=== PATIENT | female | born 1980 | race Caucasian/White ===

== ENCOUNTER 2019-12-25 10:38 | Outpatient (REF) | payer OTHER, SELFPAY ==
[2019-12-26 11:42] LABS: DHEA Sulfate 166 mcg/dL (23-266)
[2019-12-27 01:32] LABS: Prolactin 7.3 ng/mL
[2019-12-31 12:47] LABS: Testosterone, Total 33 ng/dL (2-45)
== END 2019-12-25 10:39 | disposition home or self-care (01) ==
LOC: HO.LAB 10:38
PROVIDERS: PCP Internal Medicine; Visit Provider Advanced Practice Midwife
DX: L68.0 Hirsutism (principal)
CPT/HCPCS: 82627; 83498; 84146; 84402; 84403

== ENCOUNTER → 2020-01-04 11:33 | Outpatient (BNVA) | payer OTHER, SELFPAY | PROVIDERS: Visit Provider Advanced Practice Midwife | DX: L68.0 Hirsutism (principal) | CPT/HCPCS: 99212 ==

== ENCOUNTER 2020-01-19 10:24 | Outpatient (REF) | payer OTHER, SELFPAY ==
[2020-01-19 11:49] LABS: MANUAL DIFF FLAG NO
[2020-01-19 11:58] LABS: Basophils Percent Auto 0.3 % (0-2); Eosinophils Percent Auto 0.4 % (0-4); Hematocrit 38.9 % (37-47); Hemoglobin 12.5 g/dl (12.0-16.0); Imm Gran Abs Auto 0.03 X10*3/uL (0.00-0.03); Imm Gran Pct Auto 0.4 % (0.0-0.4); Lymphocytes Absolute Auto 2.5 X10*3/uL (1.2-4.9); Mean Corpuscular HGB Conc 32.1 g/dl (31.0-35.0); Mean Corpuscular Hemoglobin 28.2 pg (27.0-33.0); Mean Corpuscular Volume 87.8 fL (80-98); Mean Platelet Volume 10.8 fL (9.4-12.3); Monocytes Absolute Auto 0.5 X10*3/uL (0.1-1.2); Monocytes Percent Auto 6.4 % (2-11); Neutrophils Absolute Auto 4.1 X10*3/uL (2.0-8.3); Neutrophils Percent Auto 57.5 % (45-73); Platelet Count 305 X10*3/uL (160-400); Red Blood Count 4.43 X10*6/uL (4.20-5.50); Red Cell Distribution Width 14.6 % (11.0-16.0); White Blood Count 7.1 X10*3/uL (4.8-10.8)
[2020-01-19 12:29] LABS: Anion Gap 13 (12-20); Blood Urea Nitrogen 10 mg/dL (9-16); Calcium 9.1 mg/dL (8.4-10.2); Carbon Dioxide 27 mmol/L (22-29); Chloride 104 mmol/L (96-108); Cholesterol 142 mg/dL; Estimated Glomerular Filt Rate > 60; Glucose Fasting 98 mg/dL (60-99); HDL Cholesterol 37 mg/dL; LDL Cholesterol Calculated 84 mg/dl; Potassium 4.5 mmol/l (3.3-5.1); Sodium 139 mmol/L (135-145); Triglycerides 106 mg/dL
== END 2020-01-19 10:25 | disposition home or self-care (01) ==
LOC: HO.HMGCLDS 10:24
PROVIDERS: PCP Internal Medicine; Visit Provider Internal Medicine
DX: Z00.01 Encounter for general adult medical examination with abnormal findings (principal); E66.9 Obesity, unspecified; E03.9 Hypothyroidism, unspecified; K21.9 Gastro-esophageal reflux disease without esophagitis; K76.0 Fatty (change of) liver, not elsewhere classified; R07.89 Other chest pain
CPT/HCPCS: 36415; 80048; 80061; 84443; 85025

== ENCOUNTER 2020-02-01 11:47 | Outpatient (REF) | payer OTHER, SELFPAY ==
[2020-02-01 16:54] LABS: Glucose Urine UA NEG (NEG); Leukocyte Esterase Urine NEG (NEG); Nitrite Urine POS (NEG); PH 6.5 (5.0-8.0); Urine Blood 1+ (NEG); Urine Ketones NEG (NEG); Urine Protein NEG (NEG-TRACE)
[2020-02-01 16:55] LABS: Appearance Urine HAZY; Color Urine YELLOW
[2020-02-01 17:15] LABS: Bacteria Urine 4+ /LPF; RBC Urine 0-2 /HPF (0); Squamous Epithelial Cell Urine TRACE /LPF
[2020-02-02 09:43] LABS: BV Int Neg Control Negative (Negative); BV Int Pos Control Positive (Positive)
== END 2020-02-01 11:48 | disposition home or self-care (01) ==
LOC: HO.LAB 11:47
PROVIDERS: Visit Provider Hospitalist
DX: N89.8 Other specified noninflammatory disorders of vagina (principal)
CPT/HCPCS: 81001; 87086; 87088; 87186; 87480; 87510; 87660

== ENCOUNTER 2020-02-02 14:19 | Outpatient (REF) | payer OTHER, SELFPAY ==
--- NOTE | 2020-02-02 14:21 | XR_ITS ---
EXAMINATION: XR SHOULDER, LEFT CLINICAL INFORMATION: Pain. COMPARISON: None TECHNIQUE: Three views of the left shoulder. FINDINGS: No fracture or dislocation. Mild AC joint arthritis. No abnormal soft tissue calcification. XR/XR shoulder LT min 2V IMPRESSION: No acute osseous abnormality. Mild AC joint arthritis.
== END 2020-02-02 14:20 | disposition home or self-care (01) ==
LOC: HO.HOSX 14:19
PROVIDERS: PCP Internal Medicine; Visit Provider Orthopaedic Surgery
DX: M25.512 Pain in left shoulder (principal); M75.42 Impingement syndrome of left shoulder
CPT/HCPCS: 20610; 73030; 99212; J1040

== ENCOUNTER 2020-04-05 10:18 | Outpatient (REF) | payer OTHER, SELFPAY ==
[2020-04-06 08:50] LABS: HIV AB/AG Nonreactive (Nonreactive); HIV Num 1 0.07 S/CO (0.00-0.99); ~HepC Num1 0.09 S/CO (0.00-0.79); ~Hepatitis C Antibody Nonreactive (Nonreactive)
[2020-04-06 08:53] LABS: Syphilis Screen Nonreactive (Nonreactive)
[2020-04-06 09:50] LABS: HBsAGNum1 0.22 S/CO (0.00-0.99); Hepatitis B Surface Antigen Negative (Negative)
[2020-04-06 17:36] LABS: C. trachomatis RNA TMA NOT DETECTED (NOT DETECTED); N. gonorrhoeae RNA TMA NOT DETECTED (NOT DETECTED)
== END 2020-04-05 10:19 | disposition home or self-care (01) ==
LOC: HO.LAB 10:18
PROVIDERS: PCP Internal Medicine; Visit Provider Advanced Practice Midwife
DX: Z01.419 Encounter for gynecological examination (general) (routine) without abnormal findings (principal); Z20.2 Contact with and (suspected) exposure to infections with a predominantly sexual mode of transmission
CPT/HCPCS: 36415; 86780; 86803; 87340; 87389; 87491; 87591

== ENCOUNTER → 2020-04-12 08:28 | Outpatient (BNVA) | payer OTHER, SELFPAY | PROVIDERS: PCP Internal Medicine; Visit Provider Orthopaedic Surgery | DX: M22.2X2 Patellofemoral disorders, left knee (principal); M25.561 Pain in right knee | CPT/HCPCS: 99212 ==

== ENCOUNTER 2020-05-17 09:44 | Outpatient (REF) | payer OTHER, SELFPAY ==
[2020-05-17 12:30] LABS: Alanine Aminotransferase 35 U/L (0-31); Albumin Level 4.1 g/dL (3.5-5.0); Alkaline Phosphatase 105 U/L (39-117); Anion Gap 14 (12-20); Aspartate Amino Transferase 26 U/L (5-31); Bilirubin Total 0.3 mg/dL (0.0-1.0); Blood Urea Nitrogen 12 mg/dL (9-16); Calcium 8.8 mg/dL (8.4-10.2); Carbon Dioxide 26 mmol/L (22-29); Chloride 105 mmol/L (96-108); Cholesterol 178 mg/dL; Estimated Glomerular Filt Rate > 60; Glucose Fasting 100 mg/dL (60-99); HDL Cholesterol 41 mg/dL; LDL Cholesterol Calculated 109 mg/dl; Potassium 4.2 mmol/L (3.3-5.1); Sodium 141 mmol/L (135-145); Total Protein 7.1 g/dL (6.5-8.0); Triglycerides 144 mg/dL
[2020-05-17 16:27] LABS: Glucose Urine UA NEG (NEG); Leukocyte Esterase Urine NEG (NEG); Nitrite Urine POS (NEG); Specific Gravity - Urine 1.015 (1.005-1.025); Urine Blood TRACE (NEG); Urine Ketones NEG (NEG); Urine Protein NEG (NEG-TRACE)
[2020-05-17 16:31] LABS: Appearance Urine CLEAR; Color Urine YELLOW
[2020-05-17 16:32] LABS: Bacteria Urine 3+ /LPF; RBC Urine 0-2 /HPF (0); Squamous Epithelial Cell Urine 1+ /LPF; WBC Urine 0 /HPF (0-4)
[2020-05-18 08:44] LABS: CT PCR NOT DETECTED (Not Detect.); NG PCR NOT DETECTED (Not Detect.)
== END 2020-05-17 09:45 | disposition home or self-care (01) ==
LOC: HO.HMGCLDS 09:44
PROVIDERS: Advanced Practice Midwife; Hospitalist; PCP Internal Medicine; Visit Provider Internal Medicine
DX: Z00.01 Encounter for general adult medical examination with abnormal findings (principal); E03.9 Hypothyroidism, unspecified; E66.9 Obesity, unspecified; Z20.2 Contact with and (suspected) exposure to infections with a predominantly sexual mode of transmission
CPT/HCPCS: 36415; 80053; 80061; 81001; 84443; 87491; 87591

== ENCOUNTER 2020-06-21 08:56 | Outpatient (REF) | payer OTHER, SELFPAY ==
--- NOTE | ~2020-06-21 | MM_ITS ---
EXAMINATION: MM SCREENING DIGITAL BREAST TOMOSYNTHESIS, BILATERAL CLINICAL INFORMATION: Screening. Asymptomatic. No prior breast imaging. Age 40. No known family history breast cancer. The lifetime risk of breast cancer based on the Tyrer-Cuzick Model is 7%. COMPARISON: None (current study represents initial baseline exam). TECHNIQUE: Digital breast tomosynthesis is performed in both the craniocaudal and mediolateral oblique views along with computer-aided detection (CAD). Synthesized 2D images are generated from the tomosynthesis. Additional right MLO view is provided. FINDINGS: There are scattered areas of fibroglandular density (ACR BI-RADS breast composition Category b). There are no significant masses, abnormal calcifications, or other abnormalities. The axilla and skin contours are unremarkable. MM/MM tomosynthesis screening BI IMPRESSION: No mammographic evidence of malignancy. ASSESSMENT: BI-RADS 1: Negative RECOMMENDATION: Routine annual mammography screening. This patient's information was entered into a reminder system with a target due date for their next mammogram.
== END 2020-06-21 08:57 | disposition home or self-care (01) ==
LOC: HO.MAMMO 08:56
PROVIDERS: PCP Internal Medicine; Visit Provider Internal Medicine
DX: Z12.31 Encounter for screening mammogram for malignant neoplasm of breast (principal)
CPT/HCPCS: 77063; 77067

== ENCOUNTER 2020-08-03 09:24 | Outpatient (REF) | payer OTHER, SELFPAY | END 2020-08-03 09:25 | disposition home or self-care (01) | LOC: HO.HMGCLDS 09:24 | PROVIDERS: PCP Internal Medicine; Visit Provider Internal Medicine | DX: Z20.822 Contact with and (suspected) exposure to COVID-19 (principal) | CPT/HCPCS: C9803; U0003; U0005 ==

== ENCOUNTER 2021-01-18 11:06 | Outpatient (REF) | payer MEDICAID, OTHER, SELFPAY ==
--- NOTE | ~2021-01-18 | XR_ITS ---
EXAMINATION: XR HAND, RIGHT CLINICAL INFORMATION: Trauma, pain COMPARISON: None TECHNIQUE: PA, lateral, and oblique views of the right hand. FINDINGS: There is an oblique intra-articular fracture involving the fifth finger middle phalanx extending to the DIP joint. There is mild impaction of the fracture fragment, articular cortical step off by under 2 mm. There is no dislocation or destructive process. The remainder of the bony structures appear intact. XR/XR hand RT min 3V IMPRESSION: Oblique intra-articular fracture fifth finger middle phalanx extending to the DIP joint. No dislocation.
== END 2021-01-18 11:07 | disposition home or self-care (01) ==
LOC: HO.XRAY 11:06
PROVIDERS: Visit Provider Emergency Medicine
DX: M79.644 Pain in right finger(s) (principal)
CPT/HCPCS: 29130; 73130; 99283

== ENCOUNTER 2021-01-18 16:17 | Emergency (ER) | payer MEDICAID, OTHER, SELFPAY ==
[2021-01-18 17:07] VITALS: BP 119/79; PULSE 83; RESP 16; TEMP 36.8; O2SAT 99; BMI 34.6
--- NOTE | 2021-01-18 17:50 | ED_ITS ---
HPI - Extremity Injury (Upper) General Chief Complaint: Extremity Injury, Upper Stated Complaint: finger fracture Time Seen by Provider: 01/18/21 17:30 Source: patient and family Mode of arrival: ambulatory Limitations: no limitations History of Present Illness HPI narrative: 40-year-old female presenting to the ED after she had an outpatient x-ray which revealed an oblique intra-articular fracture 5th finger middle phalanx extending into the DIP joint no dislocation after her doctor ordered an outpatient x-ray today. She reports that she had seen her doctor twice on 2 separate occasions after she had this injury and she begged him on the 2 separate occasions for an x-ray and he did not order the x-ray until today and then they called her and told her that she had a fracture and had to come to the ER for an ortho consult. She reports that this happened after she pinched her finger in a door. She denies any fevers, chills, paresthesias, numbness or tingling or any other symptoms complaints or concerns at this time MD complaint: injury to: right and finger (little finger) Onset (ago): day(s) (15 days ) Other Extremity Injury: left: fingers (little finger) Other injuries: none Handedness: right Place: home Severity: moderate Severity scale (1-10): >10 Relieving factors: none Exacerbating factors: movement of extremity and other (Palpation) Context: direct blow (pinched with door ) Associated symptoms: denies other symptoms Related Data Home Medications Medication Instructions Recorded Confirmed cholecalciferol (vitamin D3) 50 50 mcg PO BEDTIME 05/13/20 05/13/20 mcg (2,000 unit) tablet Previous Rx's Medication Instructions Recorded nitrofurantoin 100 mg PO Q12H 3 Days #6 cap 03/01/20 monohydrate/macrocrystals 100 mg capsule (Macrobid) diclofenac sodium 75 mg 75 mg PO BID #60 tab 04/12/20 tablet,delayed release fluconazole 150 mg tablet 150 mg PO Q3D #2 tab 06/18/20 (Diflucan) atorvastatin 10 mg tablet 10 mg PO BEDTIME 90 Days #90 tab 12/09/20 levothyroxine 75 mcg tablet 75 mcg PO DAILY #90 tab 12/09/20 ibuprofen 800 mg tablet 800 mg PO Q8H PRN #14 tab 01/18/21 oxycodone 5 mg tablet 5 mg PO Q6H PRN #14 tab 01/18/21 Allergies Allergy/AdvReac Type Severity Reaction Status Date / Time No Known Allergies Allergy Verified 06/18/20 09:19 [No Known Allergies*] Review of Systems Review of Systems: Constitutional : No Weight loss, No Fever, No Chills, No Night Sweats, No Fatigue, No Malaise ENT/Mouth : No Hearing loss, No Ear Pain, No Nasal Congestion, No Sinus Pain, No Hoarseness, No sore throat, No Rhinorrhea, No Swallowing Difficulty Eyes: No Eye Pain, No Swelling, No Redness, No Foreign Body, No Discharge, No Vision Changes Cardiovascular : No Chest Pain, No SOB, No Dyspnea on Exertion, No Orthopnea, No Edema, No Palpitations Respiratory : No Cough, No Sputum, No Wheezing, No Smoke Exposure, No Dyspnea Gastrointestinal : No Nausea, No Vomiting, No Diarrhea, No Constipation, No abdominal Pain, No Hematochezia, No Melena Genitourinary : no irregular bleeding, No Dysuria, No Urinary Frequency, No Hematuria, No Urinary Incontinence, No Urgency, No Flank Pain, No Urinary Flow Changes, No Hesitancy Musculoskeletal : + joint pain, No Myalgias, No Joint Swelling Skin : No Skin Lesions, No rash Neuro : No Weakness, No Numbness, No Paresthesias, No Loss of Consciousness, No Dizziness, No Headache Psych : No Anxiety/Panic, No Depression, No SI/HI/AH/VH, No Social Issues, Heme/Lymph: No Bruising, No Bleeding,No Lymphadenopathy Endocrine : No Polyuria, No Polydipsia, No Temperature Intolerance Yes all other systems are reviewed and are negative [facility] Past Medical History Attestation statement: The following information was validated with the patient. Medical History Acquired hypothyroidism GERD (gastroesophageal reflux disease) Herpes labialis Hirsutism Lumbar radicular pain NAFLD (nonalcoholic fatty liver disease) Obesity Rotator cuff impingement syndrome of left shoulder Sebaceous cyst Vaginitis Surgical History Hx of section Hx of rhinoplasty Family History Family History Father Diabetes mellitus Mother HTN (hypertension) Active Meniere's disease Paternal Aunt Ovarian cancer Social History Social History Alcohol intake: never Advance Directives: No Advance Directives Information Provided: Yes Patient : No Current occupational status: employed 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 Blood pressure normal Heart rate normal. Respiration rate normal. Temperature normal. Oxygen saturation normal. Appearance: Alert. Oriented X3. No acute distress. Head: Normal external exam. Normocephalic. Atraumatic. Eyes: PERRLA. EOMI. Conjunctiva and sclera normal. Eyelids normal. ENT: Pharynx normal. Uvula midline. Moist mucous membranes. Neck: Normal inspection. Neck supple. FROM. CVS: Normal heart rate and rhythm. Respiratory: No respiratory distress. Painless inspiration. Skin: Skin warm and dry. Normal skin color. Normal skin turgor. No rashes/lesions/lacerations noted. Extremities: To the right hand 5th digit/little finger at the at the middle phalanx/DI P patient has tenderness to palpation and obvious mild deformity. No obvious ligamentous or tendon injury and she does have good range of motion. Otherwise all of Extremities exhibit normal range of motion and nontender. Neuro: Oriented X 3. No motor deficit. No sensory deficit. Reflexes normal. Normal steady gait. No focal neuro deficits noted. Vascular: + radial pulses/+ 2 distal pedal pulses/+2 dorsalis pedis b/l. Normal cap refill. No cyanosis noted to upper extremity nails and lower extremity toes nails. Course Course Course Narrative: 40-year-old female presenting to the ED after she had an outpatient x-ray which revealed an oblique intra-articular fracture 5th finger middle phalanx extending into the D IP joint no dislocation after her doctor ordered an outpatient x-ray today. She reports that she had seen her doctor twice on 2 separate occasions after she had this injury and she begged him on the 2 separate occasions for an x-ray and he did not order the x-ray until today and then they called her and told her that she had a fracture and had to come to the ER for an ortho consult. She reports that this happened after she pinched her finger in a door. I consulted Orthopedic and they recommended a finger splint verses a ulnar gutter splint therefore will placed in an ulnar gutter splint and they will call her tomorrow with a follow-up appointment this week for possible outpatient surgery although they are not positive due to patient had this injury 15 days ago. Patient understands this I had a long conversation with her that they may or may not do surgery due to the timeframe of the injury. She understands this. Will DC home with symptomatic treatment fractions return if any new or worsening symptoms and to follow-up with hand surgeon and they will call her tomorrow. She understands agrees with this plan MDM - Extremity Injury (Upper) Medical Records Attestation: I reviewed the patient's medical records. Imaging Data left hand xrays: Attestation: I personally reviewed and interpreted this imaging study as follows: Radiologist's impression: FINDINGS: There is an oblique intra-articular fracture involving the fifth finger middle phalanx extending to the DIP joint. There is mild impaction of the fracture fragment, articular cortical step off by under 2 mm. There is no dislocation or destructive process. The remainder of the bony structures appear intact.? XR/XR hand RT min 3V IMPRESSION: Oblique intra-articular fracture fifth finger middle phalanx extending to the DIP joint. No dislocation. Procedures Orthopedic Splinting/Casting Injury #1: Side: right Upper Extremity Injury Location: finger (little finger) Upper Extremity Immobilizer: ulnar gutter Discharge Plan Discharge Clinical Impression: Closed fracture of phalanx of little finger, Closed fracture of phalanx of little finger with delayed healing Patient Disposition: Home, Self-Care Instructions: Finger Fracture (ED) Prescriptions: New ibuprofen 800 mg tablet 800 mg PO Q8H PRN (Reason: pain) Qty: 14 RF: 0 oxycodone 5 mg tablet 5 mg PO Q6H PRN (Reason: pain) Qty: 14 RF: 0 No Action levothyroxine 75 mcg tablet 75 mcg PO DAILY Qty: 90 RF: 1 atorvastatin 10 mg tablet 10 mg PO BEDTIME 90 Days Qty: 90 RF: 0 cholecalciferol (vitamin D3) 50 mcg (2,000 unit) tablet 50 mcg PO BEDTIME RF: 0 nitrofurantoin monohyd/m-cryst [Macrobid] 100 mg capsule 100 mg PO Q12H 3 Days Qty: 6 RF: 0 fluconazole [Diflucan] 150 mg tablet 150 mg PO Q3D Qty: 2 RF: 0 diclofenac sodium 75 mg tablet,delayed release (DR/EC) 75 mg PO BID Qty: 60 RF: 2 Referrals: [facility] [Primary Care Provider] - 2 days Ree Gresham MD [Physician] - 2 days Print Language: Afghan
[2021-01-18 18:22] VITALS: BP 130/78; PULSE 89; RESP 16; TEMP 36.6; O2SAT 97
--- NOTE | 2021-01-18 18:28 | PC.NURSE ---
PT ULNER GUTTER IN PLACE TO LEFT HAND
== END 2021-01-18 18:56 | disposition home or self-care (01) ==
PROVIDERS: Emergency Provider Emergency Medicine
DX: S62.606A Fracture of unspecified phalanx of right little finger, initial encounter for closed fracture (principal); M79.641 Pain in right hand; Y29.XXXA Contact with blunt object, undetermined intent, initial encounter; Y93.9 Activity, unspecified; Y92.009 Unspecified place in unspecified non-institutional (private) residence as the place of occurrence of the external cause; Y99.9 Unspecified external cause status; Z79.899 Other long term (current) drug therapy
CPT/HCPCS: 29130; 99283

== ENCOUNTER 2021-01-20 07:11 | Outpatient (REF) | payer MEDICAID, OTHER, SELFPAY | END 2021-01-20 07:12 | disposition home or self-care (01) | LOC: HO.HOSX 07:11 | PROVIDERS: Visit Provider Physician Assistant | DX: S62.606G Fracture of unspecified phalanx of right little finger, subsequent encounter for fracture with delayed healing (principal); X58.XXXD Exposure to other specified factors, subsequent encounter; Z79.891 Long term (current) use of opiate analgesic; Z79.899 Other long term (current) drug therapy | CPT/HCPCS: 99202 ==

== ENCOUNTER 2021-01-23 08:18 | Day surgery (SDC) | payer MEDICAID, OTHER, SELFPAY ==
--- NOTE | 2021-01-20 14:55 | HO.ANESPROP2 ---
Documented by User: Magdalena Meza NP 01/20/21 14:56 HPI - Anesthesia Eval Consult details Narrative: 41yo F for Right Finger Fx ORIF fifth digit PMFSH Active Problems Active Problems: All Active Problems (Updated 01/20/21 @ 13:15 by Robyn Maurice PA-C) Fracture of phalanx of middle finger with delayed healing (Acute) Lipid disorder (Acute) Other specified hypothyroidism (Acute) Vaginitis (Acute) Encounter for general adult medical examination with abnormal findings (Acute) Patellofemoral pain syndrome of left knee (Acute) NAFLD (nonalcoholic fatty liver disease) (Acute) GERD (gastroesophageal reflux disease) (Acute) Acquired hypothyroidism (Acute) Obesity (Acute) Past Medical History Medical History Acquired hypothyroidism GERD (gastroesophageal reflux disease) Herpes labialis Hirsutism Lumbar radicular pain NAFLD (nonalcoholic fatty liver disease) Obesity Rotator cuff impingement syndrome of left shoulder Sebaceous cyst Vaginitis Family History Family History Father Diabetes mellitus Mother HTN (hypertension) Active Meniere's disease Paternal Aunt Ovarian cancer Surgical History Surgical History Hx of section Hx of rhinoplasty Social History Social History Alcohol intake: never Patient Tobacco Use Status: Never used Tobacco Use of substances other than those prescribed or required for medical reasons: No Are you DNR?: No Advance Directives: No Advance Directives Information Provided: Yes Current occupational status: employed 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 Gender identity: Female Meds Allergies Allergy/AdvReac Type Severity Reaction Status Date / Time No Known Allergies Allergy Verified 01/20/21 10:12 [No Known Allergies*] Home Medications Medication Instructions Recorded Confirmed Last Taken Type cholecalciferol (vitamin D3) 50 50 mcg PO BEDTIME 05/13/20 05/13/20 Unknown History mcg (2,000 unit) tablet Exam Exam Date and Time: January 20, [id number] Assessment and Plan Assessment Anesthesia Assessment: Chart Reviewed Documented by User: Daylin Rollins MD 01/23/21 09:09 PMFSH Past Medical History Medical History Acquired hypothyroidism GERD (gastroesophageal reflux disease) Herpes labialis Hirsutism Lumbar radicular pain NAFLD (nonalcoholic fatty liver disease) Obesity Rotator cuff impingement syndrome of left shoulder Sebaceous cyst Vaginitis Functional capacity: independent ambulation Patient : No Family History Family History Father Diabetes mellitus Mother HTN (hypertension) Active Meniere's disease Paternal Aunt Ovarian cancer Family history of problems with anesthesia: No Surgical History Surgical History Hx of section Hx of rhinoplasty History of Problems with Anesthesia: No Social History Social History Alcohol intake: never Patient Tobacco Use Status: Never used Tobacco Use of substances other than those prescribed or required for medical reasons: No Are you DNR?: No Advance Directives: No Advance Directives Information Provided: Yes Current occupational status: employed 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 Gender identity: Female Meds Allergies Allergy/AdvReac Type Severity Reaction Status Date / Time No Known Allergies Allergy Verified 01/20/21 10:12 [No Known Allergies*] Home Medications Medication Instructions Recorded Confirmed Last Taken Type cholecalciferol (vitamin D3) 50 50 mcg PO BEDTIME 05/13/20 05/13/20 Unknown History mcg (2,000 unit) tablet Exam Airway Mallampati Class: II TM Dist: >3cm Heart: RRR Lungs: CTA Assessment and Plan Final Anesthetic Review Family History of Problems with Anesthesia: No History of Problems with Anesthesia: No ASA Class: II Final Preanesthetic Review: No Changes in Pt Med Stat, Meds/Allgs Chart Reviewed, Consent Obtained/Reviewed and Anes Risks/Benef Reviewed Patient Risk: Low Procedure Risk: Low Anesthetic Plan Anesthetic Plan: GA Disposition: Standard PACU
[2021-01-23] VITALS (7 sets, daily range): BP systolic 109–139; BP diastolic 71–96; PULSE 72–93; RESP 16–18; TEMP 36.7–36.9; O2SAT 95–97; BMI 34.2
--- NOTE | ~2021-01-23 | FL_ITS ---
EXAMINATION: XR FLUOROSCOPY WITH IMAGES CLINICAL INFORMATION: Oblique intra-articular fracture fifth digit mid phalanx. COMPARISON: None. TECHNIQUE: Fluoroscopy performed by Dr. Marga Keenan. Fluoroscopy time: 54.1 seconds DAP: [id number] mGycm2 Images: 6 FINDINGS: There is stabilization of oblique distal mid phalanx fracture fifth digit with two 90 degree pins stabilizing the fracture. There is no displacement. The soft tissues are normal. FL/FL guidance in OR IMPRESSION: ORIF right distal mid phalanx fifth digit. The fracture fragments are in alignment.
[2021-01-23 08:34] LABS: UPreg QC Valid YES; Urine Pregnancy NEGATIVE (NEGATIVE)
[2021-01-23] MEDS: Lactated Ringers 1,000 ML 100 ML IVCONT (09:02)
--- NOTE | 2021-01-23 09:36 | P.OP_ITS ---
Operative Note Operative Note Date of Service: 01/23/21 Narrative: Operative Note Narrative: Preop diagnosis: 1. Right small finger middle phalanx fracture, intra-articular and distal Postop diagnosis: Same Procedure: 1. Right small finger middle phalanx fracture closed reduction percutaneous pinning 2. Right ulnar nerve block Surgeon: Ree Gresham MD Anesthesia: General Findings: Implants: 0.045 K-wires x2 Tourniquet time: 0 minutes EBL: 5.0 ml Specimen: None Drains: None Complications: None Disposition: Brought to the recovery room in stable condition Plan: Follow-up in 10-14 days for wound check, and pre clinic radiographs. Anticipate placement in a short-arm finger spica cast, and removal of K-wires at 4 weeks postop pending good evidence of interval bony healing. Indications: The patient is a 41 year old woman with right middle finger middle phalanx fracture . The risks and benefits of operative treatment, including but not limited to risk of damage to blood vessels, nerves, tendons, infection, recurrence, persistent pain or numbness, incomplete resolution of preoperative symptoms, or need for further surgery were discussed with the patient and they wished to proceed with surgery. Procedure: Once consent was obtained patient was brought back to the operating suite and placed in the operating table in a supine position. . Perioperative antibiotics and anesthesia was administered by the anesthesia team. A tourniquet was applied to the proximal aspect of the right upper extremity and the limb was prepped and draped in a standard surgical fashion. The tourniquet was not inflated. The FluoroScan was used during the case to assess our reduction and placement of all implants. I placed a 0.045 K-wire through the tip of the distal phalanx and advanced it retrograde to the base of the distal phalanx. I then placed a 2nd 0.045 K-wire through the distal radial aspect of the middle phalanx. I then performed a closed reduction of the middle phalanx fracture and advanced the K- wire retrograde and obliquely across the fracture site through the ulnar shaft of the middle phalanx. I was satisfied with the reduction and placement of this K-wire. I then advanced the longitudinally oriented K-wire across the D IP joint, across the distal fragment of the middle phalanx, across the fracture and down to the base of the middle phalanx. I was satisfied with the reduction and placement of all K-wires. Final radiographs were then obtained. The pins were then bent cut short had pin caps applied. And ulnar nerve block was performed by infiltrating about the ulnar nerve at the wrist with some 1% lidocaine with epinephrine for postop pain control. A sterile dressing and an ulnar gutter splint were then applied. The patient appears to have tolerated the procedure well and with no complications. All digits were well vascularized conclusion of the case.
--- NOTE | 2021-01-23 11:38 | MHC.SHP ---
Pre-Procedural Eval Section A Date of Service: 01/23/21 The patient is an INPATIENT: No Changes since office visit: No Cold of Flu in the past 2 weeks, No New Medical Problems, No Changes in Medication and No Patient answered all questions The History & Physical has been completed within 30 days and I have reviewed it.: Yes Section B Chief Complaint: finger fx Allergies: Allergies Allergy/AdvReac Type Severity Reaction Status Date / Time No Known Allergies Allergy Verified 01/20/21 10:12 [No Known Allergies*] Plan I have reviewed the history and physical and performed a pertinent physical examination on my patient. No changes have occurred unless specified.
--- NOTE | 2021-01-23 12:05 | HO.POSTANES ---
Post Anesthesia Evaluation Post Anesthesia Evaluation Vital Signs: Vital Signs Temp Pulse Resp BP Pulse Ox 01/23/21 11:55 81 16 129/81 97 01/23/21 11:50 85 18 124/71 96 01/23/21 11:45 84 18 126/74 97 01/23/21 11:40 98.0 F 93 18 118/71 97 01/23/21 08:40 98.5 F 83 18 109/74 96 Anesthesia: General Mental Status: Awake Pain Control: Satisfactory Nausea/Vomiting: None Hydration: Adequate Anesthesia-Related Issues: No Anes. Related Issues
== END 2021-01-23 13:06 | disposition home or self-care (01) ==
PROVIDERS: Nurse Practitioner; Visit Provider Orthopaedic Surgery
PROC: (CPT 26727; principal; 2021-01-23 08:40)
DX: S62.626A Displaced fracture of middle phalanx of right little finger, initial encounter for closed fracture (principal); W23.1XXA Caught, crushed, jammed, or pinched between stationary objects, initial encounter; Y93.9 Activity, unspecified; Y92.9 Unspecified place or not applicable; Y99.8 Other external cause status; K76.0 Fatty (change of) liver, not elsewhere classified; E66.9 Obesity, unspecified; Z68.34 Body mass index [BMI] 34.0-34.9, adult; E03.9 Hypothyroidism, unspecified; Z79.899 Other long term (current) drug therapy
CPT/HCPCS: 26727; 81025; J0690; J1100; J2250; J2405; J2765; J3010

== ENCOUNTER 2021-01-31 13:22 | Outpatient (REF) | payer MEDICAID, OTHER, SELFPAY ==
--- NOTE | ~2021-01-31 | XR_ITS ---
EXAMINATION: XR HAND, RIGHT CLINICAL INFORMATION: Pain in right hand. COMPARISON: XR right hand 01/18/2021. Intraoperative fluoroscopic spot films of right 5th finger 01/23/2021. TECHNIQUE: PA, lateral, and oblique views of the right hand. FINDINGS: The 2 K-wires transfixing the oblique intra-articular fracture of the mid to distal aspect of the 5th middle phalanx are again noted. There is persistent mild radial and proximal displacement of the distal radial-sided fracture fragment. There is no significant callus formation. XR/XR hand RT min 3V IMPRESSION: No significant change in the mildly displaced 5th middle phalanx fracture.
== END 2021-01-31 13:23 | disposition home or self-care (01) ==
LOC: HO.HOSX 13:22
PROVIDERS: Visit Provider Orthopaedic Surgery
DX: S62.60 Fracture of unspecified phalanx of finger (principal); X58.XXXD Exposure to other specified factors, subsequent encounter
CPT/HCPCS: 73130; 99212

== ENCOUNTER 2021-02-21 10:12 | Outpatient (REF) | payer MEDICAID, OTHER, SELFPAY ==
--- NOTE | ~2021-02-21 | XR_ITS ---
EXAMINATION: XR HAND, RIGHT CLINICAL INFORMATION: Pain right hand. COMPARISON: Right hand 01/31/2021 TECHNIQUE: PA, lateral, and oblique views of the right hand. FINDINGS: There is stabilization of middle phalanx fracture fifth digit with 2 metallic pins. The soft tissues are normal. XR/XR hand RT min 3V IMPRESSION: 2 metallic pins stabilizing oblique fracture mid distal mid phalanx fifth digit.
== END 2021-02-21 10:13 | disposition home or self-care (01) ==
LOC: HO.HOSX 10:12
PROVIDERS: Visit Provider Orthopaedic Surgery
DX: S62.606G Fracture of unspecified phalanx of right little finger, subsequent encounter for fracture with delayed healing (principal); X58.XXXD Exposure to other specified factors, subsequent encounter
CPT/HCPCS: 73130; 99212

== ENCOUNTER 2021-03-07 09:18 | Outpatient (REF) | payer MEDICAID, OTHER, SELFPAY ==
--- NOTE | ~2021-03-07 | XR_ITS ---
EXAMINATION: XR HAND, RIGHT CLINICAL INFORMATION: Fracture fifth finger middle phalanx. Follow-up. COMPARISON: Radiographs right hand 02/21/2021, 01/31/2021, 01/18/2021 TECHNIQUE: PA, lateral, and oblique views of the right hand. FINDINGS: There are 2 fixation pins again seen involving the fifth finger fracture. Fracture fragments are unchanged in alignment. Fracture line is less distinct. Hardware is intact. No destructive process or periostitis. XR/XR hand RT min 3V IMPRESSION: Healing fracture right fifth middle phalanx.
== END 2021-03-07 09:19 | disposition home or self-care (01) ==
LOC: HO.HOSX 09:18
PROVIDERS: Visit Provider Orthopaedic Surgery
DX: S62.626D Displaced fracture of middle phalanx of right little finger, subsequent encounter for fracture with routine healing (principal)
CPT/HCPCS: 73130; 99212

== ENCOUNTER 2021-04-05 08:25 | Outpatient (REF) | payer OTHER, MEDICAID, SELFPAY ==
--- NOTE | ~2021-04-05 | XR_ITS ---
EXAMINATION: XR hand RT min 3V CLINICAL INFORMATION: Pain COMPARISON: Hand radiographs 03/07/2021 TECHNIQUE: 3 views of the hand XR/XR hand RT min 3V FINDINGS/IMPRESSION: Interval removal of the surgical pins fixating the fracture of the fifth middle phalanx. There is cortical irregularity with a step-off noted along the distal articular surface of the fifth middle phalanx. There is bridging bony callus formation across the previously seen fracture with decreased conspicuity of the fracture line. Soft tissues are unremarkable.
== END 2021-04-05 08:26 | disposition home or self-care (01) ==
LOC: HO.HOSX 08:25
PROVIDERS: Visit Provider Orthopaedic Surgery
DX: S62.626D Displaced fracture of middle phalanx of right little finger, subsequent encounter for fracture with routine healing (principal)
CPT/HCPCS: 73130; 99212

== ENCOUNTER 2021-04-13 10:00 | Outpatient (RCR) | payer MEDICAID, OTHER, SELFPAY ==
--- NOTE | 2021-04-13 10:35 | MHC.OT.DC ---
[address] [phone] F: [phone] Occupational Therapy Discharge Note Provider: Ree Gresham Diagnosis: R 5th CRPP Date of Surgery: 01/23/21 Date of Evaluation: 03/23/21 Date of Discharge: Treatments to Date: 4 Cancellations to Date: 0 No Shows to Date: Discharge Status: Achieved Goals Improved Function Independent with HEP Discharge Summary: Good improvement in pain, ROM and strength. Pt is indep in jt protection techniques and hand strengthening Goals MET PIP 0/100 deg Dip 5/40 Speech Therapist Early Intervention 30 lb left 35 lb Electronically Signed By: Marcella Echeverria OT CHT CLT Reviewed/agree with student documentation: N/A Therapist: Please Sign and return to therapist, thank you for your referral.
== END 2021-05-10 08:44 | disposition home or self-care (01) ==
LOC: HO.OT 10:00
PROVIDERS: PCP Internal Medicine; Visit Provider Orthopaedic Surgery
DX: S62.626D Displaced fracture of middle phalanx of right little finger, subsequent encounter for fracture with routine healing (principal)
CPT/HCPCS: 97035; 97110; 97140; 97165; 97760

== ENCOUNTER 2021-06-26 07:42 | Outpatient (REF) | payer OTHER, SELFPAY ==
--- NOTE | ~2021-06-26 | MM_ITS ---
EXAMINATION: MM SCREENING DIGITAL BREAST TOMOSYNTHESIS, BILATERAL CLINICAL INFORMATION: Screening. Asymptomatic. The lifetime risk of breast cancer based on the Tyrer-Cuzick Model is 8%. COMPARISON: Mammography: 06/21/2020 (baseline) TECHNIQUE: Digital breast tomosynthesis is performed in both the craniocaudal and mediolateral oblique views along with computer-aided detection (CAD). Synthesized 2D images are generated from the tomosynthesis. FINDINGS: There are scattered areas of fibroglandular density (ACR BI-RADS breast composition Category b). There are no significant masses, abnormal calcifications, or other abnormalities. Parenchymal pattern is similar to prior study. No architectural abnormality. The axilla and skin contours are unremarkable. No significant changes. MM/MM tomosynthesis screening BI IMPRESSION: No mammographic evidence of malignancy. ASSESSMENT: BI-RADS 1: Negative RECOMMENDATION: Routine annual mammography screening. This patient's information was entered into a reminder system with a target due date for their next mammogram.
== END 2021-06-26 07:43 | disposition home or self-care (01) ==
LOC: HO.MAMMO 07:42
PROVIDERS: Visit Provider Internal Medicine
DX: Z12.31 Encounter for screening mammogram for malignant neoplasm of breast (principal)
CPT/HCPCS: 77063; 77067

== ENCOUNTER 2021-07-12 06:42 | Outpatient (REF) | payer OTHER, SELFPAY ==
--- NOTE | ~2021-07-12 | XR_ITS ---
EXAMINATION: XR SHOULDER, LEFT CLINICAL INFORMATION: Pain. COMPARISON: None TECHNIQUE: 3 views submitted of the left shoulder. FINDINGS: Mild degenerative change at the AC joint. There is acromial spurring. Sclerotic change at the insertion of the superior rotator cuff. The glenohumeral articulation is grossly intact. No acute finding. XR/XR shoulder LT min 2V IMPRESSION: Degenerative changes as described. Findings may well preclude to impingement. If further evaluation is warranted recommend MR.
== END 2021-07-12 06:43 | disposition home or self-care (01) ==
LOC: HO.HOSX 06:42
PROVIDERS: Visit Provider Physician Assistant
DX: M75.42 Impingement syndrome of left shoulder (principal)
CPT/HCPCS: 20610; 73030; 99212; J1040

== ENCOUNTER 2021-07-27 08:38 | Outpatient (REF) | payer BC, OTHER, SELFPAY ==
[2021-07-27 11:17] LABS: Hematocrit 39.3 % (37.0-47.0); Hemoglobin 12.9 g/dl (12.0-16.0); Mean Corpuscular HGB Conc 32.8 g/dl (31.0-35.0); Mean Corpuscular Volume 91.4 fL (80.0-98.0); Mean Platelet Volume 10.5 fL (9.4-12.3); Platelet Count 249 X10*3/uL (160-400); Red Cell Distribution Width 14.3 % (11.0-16.0)
[2021-07-27 12:21] LABS: TSH reflex Free T4 0.91 uIU/mL (0.32-4.0)
== END 2021-07-27 08:39 | disposition home or self-care (01) ==
LOC: HO.LAB 08:38
PROVIDERS: PCP Internal Medicine; Visit Provider Advanced Practice Midwife
DX: N93.9 Abnormal uterine and vaginal bleeding, unspecified (principal); R10.2 Pelvic and perineal pain; Z32.02 Encounter for pregnancy test, result negative; R23.2 Flushing
CPT/HCPCS: 36415; 58100; 81003; 81025; 84443; 85027

== ENCOUNTER 2021-07-27 10:13 | Outpatient (REF) | payer BC, OTHER, SELFPAY ==
[2021-07-27 15:08] LABS: CT PCR NOT DETECTED (Not Detect.); NG PCR NOT DETECTED (Not Detect.)
[2021-07-28 09:51] LABS: BV Int Neg Control Negative (Negative); BV Int Pos Control Positive (Positive)
[2021-08-03 12:47] LABS: HPV mRNA E6/E7 rflx Not Detected (Not Detected)
== END 2021-07-27 10:14 | disposition home or self-care (01) ==
LOC: HO.LAB 10:13
PROVIDERS: Visit Provider Advanced Practice Midwife
DX: Z12.4 Encounter for screening for malignant neoplasm of cervix (principal); Z11.51 Encounter for screening for human papillomavirus (HPV); N93.9 Abnormal uterine and vaginal bleeding, unspecified
CPT/HCPCS: 87480; 87491; 87510; 87591; 87624; 87660; 88142; 88305

== ENCOUNTER 2021-08-02 12:47 | Outpatient (REF) | payer BC, OTHER, SELFPAY ==
--- NOTE | ~2021-08-02 | US_ITS ---
EXAMINATION: US PELVIS CLINICAL INFORMATION: Excessive and frequent menstruation. COMPARISON: Ultrasound pelvis 10/28/2019. TECHNIQUE: Ultrasound of the pelvis is performed using transabdominal transducers along with Doppler. Transvaginal imaging is not performed due to endometrial biopsy one week ago. Patient has heavy bleeding. FINDINGS: UTERUS: The uterus is anteverted and measures 12.0 in length, 4.3 cm in AP and 6.2 cm in transverse dimension. The double wall endometrial thickness is 2.0 cm. The uterus is smooth in contour and has normal myometrial echogenicity. No visible fibroid. ADNEXA: Both ovaries are visualized. There is normal color flow to the adnexa. There is no ovarian torsion. There is no pelvic ascites or fluid collection. Right ovary measures 3.5 x 1.7 x 3.3 cm and volume 10.3 mL. The ovary appears unremarkable. Previously it measured 3.7 x 2.9 x 1.5 cm and volume 8.4 mL. Left ovary measures 3.9 x 2.6 x 3.7 cm and volume 19.9 mL. The ovary appears unremarkable. Previously it measured 3.2 x 2.7 x 1.5 cm. US/US pelvic complete IMPRESSION: Unremarkable uterus except for thickened endometrium measuring 2 cm with no focal lesion seen. Patient is status post endometrial biopsy one week ago. The ovaries unremarkable. There is no free fluid in the cul-de-sac.
== END 2021-08-02 12:48 | disposition home or self-care (01) ==
LOC: HO.HMGCX 12:47
PROVIDERS: Visit Provider Emergency Medicine
DX: N92.1 Excessive and frequent menstruation with irregular cycle (principal)
CPT/HCPCS: 76856

== ENCOUNTER → 2021-08-04 09:35 | Outpatient (BNVA) | payer BC, OTHER, SELFPAY | PROVIDERS: PCP Internal Medicine; Visit Provider Advanced Practice Midwife | DX: N93.9 Abnormal uterine and vaginal bleeding, unspecified (principal); Z71.2 Person consulting for explanation of examination or test findings | CPT/HCPCS: 99212 ==

== ENCOUNTER 2022-06-20 18:41 | Emergency (ER) | payer MEDICAID, SELFPAY ==
[2022-06-20 18:55] VITALS: BP 119/76; PULSE 93; RESP 20; TEMP 36.1; O2SAT 98; BMI 29.6
--- NOTE | 2022-06-20 18:56 | ED.ABDPAIN ---
HPI - Abdominal Pain General Chief Complaint: Abdominal Pain <RAVEN Palm - Last Filed: 06/20/22 18:57> Stated Complaint: not feeling well <RAVEN Palm - Last Filed: 06/20/22 18:57> Time Seen by Provider: 06/21/22 01:06 <RAVEN Palm - Last Filed: 06/20/22 18:57> Source: patient <Catrina Grayson MD - Last Filed: 06/21/22 01:26> Mode of arrival: ambulatory <Catrina Grayson MD - Last Filed: 06/21/22 01:26> Limitations: no limitations <Catrina Grayson MD - Last Filed: 06/21/22 01:26> History of Present Illness HPI narrative: Patient comes to the emergency room complaining of abdominal cramping, nausea vomiting diarrhea for approximately 2 hours. Patient denies chest pain or shortness of breath. Complaining of chills, no fever. <Catrina Grayson MD - Last Filed: 06/21/22 01:26> Related Data Home Medications: Home Medications Medication Instructions Recorded Confirmed cholecalciferol (vitamin D3) 50 50 mcg PO BEDTIME 05/13/20 05/13/20 mcg (2,000 unit) tablet levothyroxine 88 mcg tablet 88 mcg PO DAILY 07/12/21 metformin 500 mg tablet 500 mg PO DAILY 07/12/21 ascorbic acid (vitamin C) 250 mg 250 mg PO BID 07/27/21 tablet (Vitamin C) ferrous sulfate 325 mg (65 mg 325 mg PO BID 07/27/21 iron) tablet (FeroSul) Previous Rx's Medication Instructions Recorded atorvastatin 10 mg tablet 10 mg PO BEDTIME 90 days #90 tabs 12/09/20 hyoscyamine sulfate 0.125 mg tablet 0.125 mg PO QID PRN dyspepsia #10 06/21/22 tabs ondansetron 4 mg disintegrating 4 mg PO Q8H PRN nausea and 06/21/22 tablet vomiting #14 tabs <RAVEN Palm - Last Filed: 06/20/22 18:57> Allergies/Adverse Reactions: Allergies Allergy/AdvReac Type Severity Reaction Status Date / Time No Known Allergies Allergy Verified 08/04/21 10:16 [No Known Allergies*] <RAVEN Palm - Last Filed: 06/20/22 18:57> Review of Systems Review of Systems Constitutional : No Weight loss, No Fever, No Chills, No Night Sweats, No Fatigue, No Malaise ENT/Mouth : No Hearing loss, No Ear Pain, No Nasal Congestion, No Sinus Pain, No Hoarseness, No sore throat, No Rhinorrhea, No Swallowing Difficulty Eyes: No Eye Pain, No Swelling, No Redness, No Foreign Body, No Discharge, No Vision Changes Cardiovascular : No Chest Pain, No SOB, No Dyspnea on Exertion, No Orthopnea, No Edema, No Palpitations Respiratory : No Cough, No Sputum, No Wheezing, No Smoke Exposure, No Dyspnea Gastrointestinal : Dying of nausea vomiting diarrhea, No Constipation, complaining of abdominal cramping Genitourinary : no irregular bleeding, No Dysuria, No Urinary Frequency, No Hematuria, No Urinary Incontinence, No Urgency, No Flank Pain, No Urinary Flow Changes, No Hesitancy Musculoskeletal : No joint pain, No Myalgias, No Joint Swelling Skin : No Skin Lesions, No rash Neuro : No Weakness, No Numbness, No Paresthesias, No Loss of Consciousness, No Dizziness, No Headache Psych : No Anxiety/Panic, No Depression, No SI/HI/AH/VH, No Social Issues, Heme/Lymph: No Bruising, No Bleeding,No Lymphadenopathy Endocrine : No Polyuria, No Polydipsia, No Temperature Intolerance <Catrina Grayson MD - Last Filed: 06/21/22 01:26> [facility] Past Medical History Medical History: Medical History Acquired hypothyroidism GERD (gastroesophageal reflux disease) Herpes labialis Hirsutism Lumbar radicular pain NAFLD (nonalcoholic fatty liver disease) Obesity Rotator cuff impingement syndrome of left shoulder Sebaceous cyst Vaginitis <RAVEN Palm - Last Filed: 06/20/22 18:57> Surgical History: Surgical History Hx of section Hx of rhinoplasty <RAVEN Palm - Last Filed: 06/20/22 18:57> Family History Family History: Family History Father Diabetes mellitus Mother HTN (hypertension) Active Meniere's disease Paternal Aunt Ovarian cancer <RAVEN Palm - Last Filed: 06/20/22 18:57> Social History Social History: Social History Alcohol intake: never Patient Tobacco Use Status: Never used Tobacco Smoked in Last 30 Days: No Use of substances other than those prescribed or required for medical reasons: No Advance Directives: No Advance Directives Information Provided: No Current occupational status: employed 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 Sexual orientation: Straight/Heterosexual Gender identity: Female <RAVEN Palm - Last Filed: 06/20/22 18:57> Physical Exam ED Vital Signs: Vital Signs - 24 hr 06/20/22 18:55 06/20/22 23:10 06/20/22 23:44 Temperature 96.9 F 98.8 F 98.9 F Pulse Rate 93 92 86 Respiratory Rate 20 16 18 Blood Pressure 119/76 138/85 137/74 Pulse Oximetry 98 100 100 Oxygen Delivery Method Room Air Room Air Room Air BMI result Body Mass Index 29.6 <RAVEN Palm - Last Filed: 06/20/22 18:57> Vital Signs - 24 hr 06/20/22 18:55 06/20/22 23:10 06/20/22 23:44 Temperature 96.9 F 98.8 F 98.9 F Pulse Rate 93 92 86 Respiratory Rate 20 16 18 Blood Pressure 119/76 138/85 137/74 Pulse Oximetry 98 100 100 Oxygen Delivery Method Room Air Room Air Room Air BMI result Body Mass Index 29.6 <Catrina Grayson MD - Last Filed: 06/21/22 01:26> Const Other: Appearance: Alert. Oriented X3. No acute distress. Eyes: Pupils equal, round and reactive to light. ENT: Pharynx normal. Neck: Normal inspection. Neck supple. No lymph nodes noted. No crepitus CVS: Normal heart rate and rhythm. Pulses normal. Normal S1 and S2 Respiratory: No respiratory distress. Breath sounds normal. No Wheezing. No rales Abdomen: Soft and nontender. No rigidity. No distention. Skin: Skin warm and dry. Normal skin color. Normal skin turgor. Extremities: No lower extremity edema. No Lacerations. No Rash Neuro: Oriented X 3. No motor deficit. No sensory deficit. Moving all extremities. No slurred speech. CN 2 through 12 grossly intact Psych: calm, cooperative, normal affect <Catrina Grayson MD - Last Filed: 06/21/22 01:26> Course Course Course Narrative: This is an RME: Additional HPI, ROS, PE not included below will be deferred to primary provider. 42-year-old female presents with nausea, vomiting, epigastric pain slight radiation to the right side of abdomen that is been going on since yesterday not tolerating p.o.. Also reports that she has been very gassy. Patient tells me she feels terrible. No known sick contacts. . Denies fevers, chills , chest pain, shortness of breath, issues p.m. physical exam diffusely tender abdomen plan labs, urine, imaging <RAVEN Palm - Last Filed: 06/20/22 18:57> Medical Decision Making Medical Decision Making [facility] Narrative: -physical exam is relatively benign. Patient does not have diffuse tenderness, does have occasional cramping. -white blood cell count 11.5, likely reactive leukocytosis. Chemistry unremarkable. -patient likely having a viral illness versus gastritis versus gastroenteritis. -patient has small amount of blood in the urine. Patient states that she is not menstruating. There is no bacteria there. Patient likely having cystitis <Catrina Grayson MD - Last Filed: 06/21/22 01:26> Lab Data [facility] Lab Attestation statement: I reviewed the patient's lab results. <Catrina Grayson MD - Last Filed: 06/21/22 01:26> Result Diagrams: 06/20/22 20:52 06/20/22 20:52 <RAVEN Palm - Last Filed: 06/20/22 18:57> Labs: Lab Results 06/20/22 06/20/22 06/20/22 Range/Units 20:51 20:51 20:52 WBC 11.5 H (4.8-10.8) X10*3/uL RBC 4.72 (4.20-5.50) X10*6/uL Hgb 13.5 (12.0-16.0) g/dl Hct 40.5 (37.0-47.0) % MCV 85.8 (80.0-98.0) fL MCH 28.6 (27.0-33.0) pg MCHC 33.3 (31.0-35.0) g/dl RDW 14.5 (11.0-16.0) % Plt Count 284 (160-400) X10*3/uL MPV 10.0 (9.4-12.3) fL Immature Gran % (Auto) 0.3 (0.0-0.4) % Neut % (Auto) 89.5 H (45-73) % Lymph % (Auto) 7.1 L (20-40) % [place] % (Auto) 2.7 (2-11) % Eos % (Auto) 0.3 (0-4) % Baso % (Auto) 0.1 (0-2) % Lymph # (Auto) 0.8 L (1.2-4.9) X10*3/uL [place] # (Auto) 0.3 (0.1-1.2) X10*3/uL Eos # (Auto) 0.0 (0.0-0.4) X10*3/uL Baso # (Auto) 0.0 (0.0-0.2) X10*3/uL Abs Immat Gran (auto) 0.03 (0.00-0.03) X10*3/uL Absolute Neuts (auto) 10.3 H (2.0-8.3) x10*3/uL Absolute Nucleated RBC 0.000 (0.0-0.012) X10*3/uL Nucleated RBC % (auto) 0.0 (0.0-0.2) /100WBC Sodium (135-145) mmol/L Potassium (3.3-5.1) mmol/L Chloride (96-108) mmol/L Carbon Dioxide (22-29) mmol/L Anion Gap (12-20) BUN (9-16) mg/dL Creatinine (0.5-1.4) mg/dL Estim Creat Clear Calc Estimated GFR Random Glucose (60-115) mg/dL Calcium (8.4-10.2) mg/dL Magnesium (1.6-2.6) mg/dL Total Bilirubin (0.0-1.0) mg/dL AST (5-31) U/L ALT (0-31) U/L Alkaline Phosphatase (39-117) U/L Total Protein (6.5-8.0) g/dL Albumin (3.5-5.0) g/dL Lipase (8-78) U/L Urine Color Urine Appearance Urine pH (5.0-9.0) Ur Specific [place] (1.005-1.025) Urine Protein (Neg-Trace) mg/dL Urine Glucose (UA) (Negative) mg/dL Urine Ketones (Negative) mg/dL Urine Blood (Negative) Urine Nitrite (Negative) Ur Leukocyte Esterase (Negative) Urine RBC (0-2) /HPF Urine WBC (0-5) /HPF Ur Squamous Epith Cells (0-2) /HPF Urine Bacteria (None Seen) Hyaline Casts (0-2) /LPF Urine Test (NEGATIVE) COVID-19 (NATO) Negative (Negative) COVID-19 Clin Com See Note Influenza Type A (AIDAN) Negative (Negative) Influenza Type B (AIDAN) Negative (Negative) Influenza A & B Note See Note 06/20/22 06/20/22 06/20/22 Range/Units 20:52 22:02 22:02 WBC (4.8-10.8) X10*3/uL RBC (4.20-5.50) X10*6/uL Hgb (12.0-16.0) g/dl Hct (37.0-47.0) % MCV (80.0-98.0) fL MCH (27.0-33.0) pg MCHC (31.0-35.0) g/dl RDW (11.0-16.0) % Plt Count (160-400) X10*3/uL MPV (9.4-12.3) fL Immature Gran % (Auto) (0.0-0.4) % Neut % (Auto) (45-73) % Lymph % (Auto) (20-40) % [place] % (Auto) (2-11) % Eos % (Auto) (0-4) % Baso % (Auto) (0-2) % Lymph # (Auto) (1.2-4.9) X10*3/uL [place] # (Auto) (0.1-1.2) X10*3/uL Eos # (Auto) (0.0-0.4) X10*3/uL Baso # (Auto) (0.0-0.2) X10*3/uL Abs Immat Gran (auto) (0.00-0.03) X10*3/uL Absolute Neuts (auto) (2.0-8.3) x10*3/uL Absolute Nucleated RBC (0.0-0.012) X10*3/uL Nucleated RBC % (auto) (0.0-0.2) /100WBC Sodium 140 (135-145) mmol/L Potassium 4.3 (3.3-5.1) mmol/L Chloride 107 (96-108) mmol/L Carbon Dioxide 26 (22-29) mmol/L Anion Gap 11 L (12-20) BUN 15 (9-16) mg/dL Creatinine 0.76 (0.5-1.4) mg/dL Estim Creat Clear Calc 112.2 Estimated GFR > 60 Random Glucose 99 (60-115) mg/dL Calcium 8.6 (8.4-10.2) mg/dL Magnesium 2.3 (1.6-2.6) mg/dL Total Bilirubin 0.3 (0.0-1.0) mg/dL AST 17 (5-31) U/L ALT 15 (0-31) U/L Alkaline Phosphatase 94 (39-117) U/L Total Protein 7.3 (6.5-8.0) g/dL Albumin 4.3 (3.5-5.0) g/dL Lipase 23 (8-78) U/L Urine Color Yellow Urine Appearance Clear Urine pH 5.5 (5.0-9.0) Ur Specific [place] >= 1.030 H (1.005-1.025) Urine Protein Trace (Neg-Trace) mg/dL Urine Glucose (UA) Negative (Negative) mg/dL Urine Ketones Negative (Negative) mg/dL Urine Blood Moderate (2+) H (Negative) Urine Nitrite Negative (Negative) Ur Leukocyte Esterase Negative (Negative) Urine RBC 11-20 H (0-2) /HPF Urine WBC 0-5 (0-5) /HPF Ur Squamous Epith Cells 3-5 (0-2) /HPF Urine Bacteria 1+ (None Seen) Hyaline Casts 0-2 (0-2) /LPF Urine Test NEGATIVE (NEGATIVE) COVID-19 (NATO) (Negative) COVID-19 Clin Com Influenza Type A (AIDAN) (Negative) Influenza Type B (AIDAN) (Negative) Influenza A & B Note <RAVEN Palm - Last Filed: 06/20/22 18:57> Lab Results 06/20/22 06/20/22 06/20/22 Range/Units 20:51 20:51 20:52 WBC 11.5 H (4.8-10.8) X10*3/uL RBC 4.72 (4.20-5.50) X10*6/uL Hgb 13.5 (12.0-16.0) g/dl Hct 40.5 (37.0-47.0) % MCV 85.8 (80.0-98.0) fL MCH 28.6 (27.0-33.0) pg MCHC 33.3 (31.0-35.0) g/dl RDW 14.5 (11.0-16.0) % Plt Count 284 (160-400) X10*3/uL MPV 10.0 (9.4-12.3) fL Immature Gran % (Auto) 0.3 (0.0-0.4) % Neut % (Auto) 89.5 H (45-73) % Lymph % (Auto) 7.1 L (20-40) % [place] % (Auto) 2.7 (2-11) % Eos % (Auto) 0.3 (0-4) % Baso % (Auto) 0.1 (0-2) % Lymph # (Auto) 0.8 L (1.2-4.9) X10*3/uL [place] # (Auto) 0.3 (0.1-1.2) X10*3/uL Eos # (Auto) 0.0 (0.0-0.4) X10*3/uL Baso # (Auto) 0.0 (0.0-0.2) X10*3/uL Abs Immat Gran (auto) 0.03 (0.00-0.03) X10*3/uL Absolute Neuts (auto) 10.3 H (2.0-8.3) x10*3/uL Absolute Nucleated RBC 0.000 (0.0-0.012) X10*3/uL Nucleated RBC % (auto) 0.0 (0.0-0.2) /100WBC Sodium (135-145) mmol/L Potassium (3.3-5.1) mmol/L Chloride (96-108) mmol/L Carbon Dioxide (22-29) mmol/L Anion Gap (12-20) BUN (9-16) mg/dL Creatinine (0.5-1.4) mg/dL Estim Creat Clear Calc Estimated GFR Random Glucose (60-115) mg/dL Calcium (8.4-10.2) mg/dL Magnesium (1.6-2.6) mg/dL Total Bilirubin (0.0-1.0) mg/dL AST (5-31) U/L ALT (0-31) U/L Alkaline Phosphatase (39-117) U/L Total Protein (6.5-8.0) g/dL Albumin (3.5-5.0) g/dL Lipase (8-78) U/L Urine Color Urine Appearance Urine pH (5.0-9.0) Ur Specific [place] (1.005-1.025) Urine Protein (Neg-Trace) mg/dL Urine Glucose (UA) (Negative) mg/dL Urine Ketones (Negative) mg/dL Urine Blood (Negative) Urine Nitrite (Negative) Ur Leukocyte Esterase (Negative) Urine RBC (0-2) /HPF Urine WBC (0-5) /HPF Ur Squamous Epith Cells (0-2) /HPF Urine Bacteria (None Seen) Hyaline Casts (0-2) /LPF Urine Test (NEGATIVE) COVID-19 (NATO) Negative (Negative) COVID-19 Clin Com See Note Influenza Type A (AIDAN) Negative (Negative) Influenza Type B (AIDAN) Negative (Negative) Influenza A & B Note See Note 06/20/22 06/20/22 06/20/22 Range/Units 20:52 22:02 22:02 WBC (4.8-10.8) X10*3/uL RBC (4.20-5.50) X10*6/uL Hgb (12.0-16.0) g/dl Hct (37.0-47.0) % MCV (80.0-98.0) fL MCH (27.0-33.0) pg MCHC (31.0-35.0) g/dl RDW (11.0-16.0) % Plt Count (160-400) X10*3/uL MPV (9.4-12.3) fL Immature Gran % (Auto) (0.0-0.4) % Neut % (Auto) (45-73) % Lymph % (Auto) (20-40) % [place] % (Auto) (2-11) % Eos % (Auto) (0-4) % Baso % (Auto) (0-2) % Lymph # (Auto) (1.2-4.9) X10*3/uL [place] # (Auto) (0.1-1.2) X10*3/uL Eos # (Auto) (0.0-0.4) X10*3/uL Baso # (Auto) (0.0-0.2) X10*3/uL Abs Immat Gran (auto) (0.00-0.03) X10*3/uL Absolute Neuts (auto) (2.0-8.3) x10*3/uL Absolute Nucleated RBC (0.0-0.012) X10*3/uL Nucleated RBC % (auto) (0.0-0.2) /100WBC Sodium 140 (135-145) mmol/L Potassium 4.3 (3.3-5.1) mmol/L Chloride 107 (96-108) mmol/L Carbon Dioxide 26 (22-29) mmol/L Anion Gap 11 L (12-20) BUN 15 (9-16) mg/dL Creatinine 0.76 (0.5-1.4) mg/dL Estim Creat Clear Calc 112.2 Estimated GFR > 60 Random Glucose 99 (60-115) mg/dL Calcium 8.6 (8.4-10.2) mg/dL Magnesium 2.3 (1.6-2.6) mg/dL Total Bilirubin 0.3 (0.0-1.0) mg/dL AST 17 (5-31) U/L ALT 15 (0-31) U/L Alkaline Phosphatase 94 (39-117) U/L Total Protein 7.3 (6.5-8.0) g/dL Albumin 4.3 (3.5-5.0) g/dL Lipase 23 (8-78) U/L Urine Color Yellow Urine Appearance Clear Urine pH 5.5 (5.0-9.0) Ur Specific [place] >= 1.030 H (1.005-1.025) Urine Protein Trace (Neg-Trace) mg/dL Urine Glucose (UA) Negative (Negative) mg/dL Urine Ketones Negative (Negative) mg/dL Urine Blood Moderate (2+) H (Negative) Urine Nitrite Negative (Negative) Ur Leukocyte Esterase Negative (Negative) Urine RBC 11-20 H (0-2) /HPF Urine WBC 0-5 (0-5) /HPF Ur Squamous Epith Cells 3-5 (0-2) /HPF Urine Bacteria 1+ (None Seen) Hyaline Casts 0-2 (0-2) /LPF Urine Test NEGATIVE (NEGATIVE) COVID-19 (NATO) (Negative) COVID-19 Clin Com Influenza Type A (AIDAN) (Negative) Influenza Type B (AIDAN) (Negative) Influenza A & B Note <Catrina Grayson MD - Last Filed: 06/21/22 01:26> Discharge Plan Discharge Clinical Impression: Nausea vomiting and diarrhea, Cystitis <RAVEN Palm - Last Filed: 06/20/22 18:57> Patient Disposition: Home, Self-Care <RAVEN Palm - Last Filed: 06/20/22 18:57> Instructions: Acute Nausea and Vomiting (ED), Interstitial Cystitis (ED) <RAVEN Palm - Last Filed: 06/20/22 18:57> Additional Instructions: Please follow-up with your primary care physician tomorrow. If you have any worsening or new symptoms, please return to the emergency room or call 911 <RAVEN Palm - Last Filed: 06/20/22 18:57> Prescriptions: New ondansetron 4 mg tablet,disintegrating 4 mg PO Q8H PRN (Reason: nausea and vomiting) Qty: 14 0RF hyoscyamine sulfate 0.125 mg tablet 0.125 mg PO QID PRN (Reason: dyspepsia) Qty: 10 0RF No Action atorvastatin 10 mg tablet 10 mg PO BEDTIME 90 Days Qty: 90 0RF cholecalciferol (vitamin D3) 50 mcg (2,000 unit) tablet 50 mcg PO BEDTIME ascorbic acid (vitamin C) [Vitamin C] 250 mg tablet 250 mg PO BID ferrous sulfate [FeroSul] 325 mg (65 mg iron) tablet 325 mg PO BID metformin 500 mg tablet 500 mg PO DAILY levothyroxine 88 mcg tablet 88 mcg PO DAILY <RAVEN Palm - Last Filed: 06/20/22 18:57>
[2022-06-20 20:59] LABS: MANUAL DIFF FLAG NO
[2022-06-20 21:01] LABS: Basophils Percent Auto 0.1 % (0-2); Eosinophils Percent Auto 0.3 % (0-4); Hematocrit 40.5 % (37.0-47.0); Hemoglobin 13.5 g/dl (12.0-16.0); Imm Gran Abs Auto 0.03 X10*3/uL (0.00-0.03); Imm Gran Pct Auto 0.3 % (0.0-0.4); Lymphocytes Absolute Auto 0.8 X10*3/uL (1.2-4.9); Lymphocytes Percent Auto 7.1 % (20-40); Mean Corpuscular HGB Conc 33.3 g/dl (31.0-35.0); Mean Corpuscular Hemoglobin 28.6 pg (27.0-33.0); Mean Corpuscular Volume 85.8 fL (80.0-98.0); Monocytes Absolute Auto 0.3 X10*3/uL (0.1-1.2); Monocytes Percent Auto 2.7 % (2-11); Neutrophils Absolute Auto 10.3 x10*3/uL (2.0-8.3); Neutrophils Percent Auto 89.5 % (45-73); Platelet Count 284 X10*3/uL (160-400); Red Blood Count 4.72 X10*6/uL (4.20-5.50); Red Cell Distribution Width 14.5 % (11.0-16.0); White Blood Count 11.5 X10*3/uL (4.8-10.8)
[2022-06-20 21:16] LABS: COVID-19 Test Negative (Negative); IDNOW Serial# BCCEAD1C
[2022-06-20 21:16] LABS: Alanine Aminotransferase 15 U/L (0-31); Albumin Level 4.3 g/dL (3.5-5.0); Alkaline Phosphatase 94 U/L (39-117); Anion Gap 11 (12-20); Aspartate Amino Transferase 17 U/L (5-31); Bilirubin Total 0.3 mg/dL (0.0-1.0); Blood Urea Nitrogen 15 mg/dL (9-16); Calcium 8.6 mg/dL (8.4-10.2); Carbon Dioxide 26 mmol/L (22-29); Chloride 107 mmol/L (96-108); Creatinine Clr Calc Pharmacy 112.2; Estimated Glomerular Filt Rate > 60; Glucose Random 99 mg/dL (60-115); Lipase 23 U/L (8-78); Magnesium 2.3 mg/dL (1.6-2.6); Potassium 4.3 mmol/L (3.3-5.1); Sodium 140 mmol/L (135-145); Total Protein 7.3 g/dL (6.5-8.0)
[2022-06-20 21:23] LABS: IDNOW Serial# 6674DD1D; Influenza A Negative (Negative)
[2022-06-20 21:24] LABS: Influenza B2 Negative (Negative)
[2022-06-20 22:09] LABS: Appearance Urine Clear; Color Urine Yellow; Glucose Urine UA Negative (Negative); Leukocyte Esterase Urine Negative (Negative); Nitrite Urine Negative (Negative); PH 5.5 (5.0-9.0); Specific Gravity - Urine >= 1.030 (1.005-1.025); UMIC TRIGGER UACC YES; Urine Blood Moderate (2+) (Negative); Urine Ketones Negative (Negative); Urine Protein Trace mg/dL (Neg-Trace)
[2022-06-20 22:11] LABS: UPreg QC Valid YES; Urine Pregnancy NEGATIVE (NEGATIVE)
[2022-06-20 22:14] LABS: Bacteria Urine 1+ (None Seen); Hyaline Casts Urine 0-2 /LPF (0-2); WBC Urine 0-5 /HPF (0-5)
[2022-06-20 23:10] VITALS: BP 138/85; PULSE 92; RESP 16; TEMP 37.1; O2SAT 100
[2022-06-20 23:44] VITALS: BP 137/74; PULSE 86; RESP 18; TEMP 37.2; O2SAT 100
--- NOTE | 2022-06-21 00:04 | PC.NURSE ---
Pt reports pain in the abdomen 7/10 lasting all day. Pt also having episodes of nausea/vomiting/diarrhea throughout the day. Pt stated she cannot walk due to the pain. Pt had 2 episodes of diarrhea in the waiting room, no vomiting.
--- NOTE | 2022-06-21 01:55 | PC.NURSE ---
I went to discharge pt and medicate prior to leaving and I could not find the pt. Determined that pt left without paperwork.
== END 2022-06-21 01:57 | disposition home or self-care (01) ==
PROVIDERS: Physician Assistant; Emergency Provider Emergency Medicine
DX: R11.2 Nausea with vomiting, unspecified (principal); R19.7 Diarrhea, unspecified; N30.90 Cystitis, unspecified without hematuria; Z20.822 Contact with and (suspected) exposure to COVID-19
CPT/HCPCS: 80053; 81001; 81025; 83690; 83735; 85025; 87502; 87635; 99283; 99284

== ENCOUNTER 2023-01-30 08:46 | Outpatient (REF) | payer SELFPAY ==
[2023-01-30 12:14] LABS: Alanine Aminotransferase 13 U/L (0-31); Alkaline Phosphatase 100 U/L (39-117); Anion Gap 11 (12-20); Aspartate Amino Transferase 16 U/L (5-31); Bilirubin Total 0.4 mg/dL (0.0-1.0); Blood Urea Nitrogen 16 mg/dL (9-16); Carbon Dioxide 26 mmol/L (22-29); Chloride 104 mmol/L (96-108); Cholesterol 189 mg/dL (<200); Estimated Glomerular Filt Rate > 60; Glucose Random 103 mg/dL (60-115); HDL Cholesterol 46 mg/dL (>40); LDL Cholesterol Calculated 120 mg/dL (<100); Sodium 137 mmol/L (135-145); Total Protein 7.5 g/dL (6.5-8.0); Triglycerides 116 mg/dL (<150)
[2023-01-30 12:38] LABS: TSH reflex Free T4 1.19 uIU/mL (0.32-4.0)
== END 2023-01-30 08:47 | disposition home or self-care (01) ==
LOC: HO.HHCL 08:46
PROVIDERS: Visit Provider Internal Medicine Geriatric Medicine
DX: B35.1 Tinea unguium (principal); E78.00 Pure hypercholesterolemia, unspecified; E03.9 Hypothyroidism, unspecified
CPT/HCPCS: 36415; 80053; 80061; 84443

== ENCOUNTER 2023-02-26 18:44 | Outpatient (REF) | payer OTHER, SELFPAY | END 2023-02-26 18:45 | disposition home or self-care (01) | LOC: HO.HHCLNP 18:44 | PROVIDERS: Visit Provider Nurse Practitioner Family | DX: R30.0 Dysuria (principal) | CPT/HCPCS: 87086; 87088; 87186 ==

== ENCOUNTER 2023-05-17 14:55 | Outpatient (REF) | payer OTHER, SELFPAY ==
--- NOTE | ~2023-05-17 | XR_ITS ---
EXAMINATION: XR KNEE, LEFT CLINICAL INFORMATION: Injury. Pain. COMPARISON: Previous x-ray from 2019 TECHNIQUE: Four views of the left knee. FINDINGS: No fracture or joint effusion. Alignment is anatomic. Joint spaces are maintained. No abnormal soft tissue calcification. XR/XR knee LT 4V IMPRESSION: Normal left knee.
== END 2023-05-17 14:56 | disposition home or self-care (01) ==
LOC: HO.HHCX 14:55
PROVIDERS: Visit Provider Emergency Medicine
DX: M79.605 Pain in left leg (principal)
CPT/HCPCS: 73564

== ENCOUNTER 2023-08-14 18:25 | Outpatient (REF) | payer OTHER, SELFPAY ==
[2023-08-15 06:07] LABS: CT PCR NOT DETECTED (Not Detect.); NG PCR NOT DETECTED (Not Detect.)
[2023-08-15 10:51] LABS: Bacterial Vaginosis PCR NEGATIVE (Negative); Candida Group PCR NOT DETECTED (Not Detect); Candida glab krusei PCR NOT DETECTED (Not Detect); Trichomonas vaginalis PCR NOT DETECTED (Not Detect)
== END 2023-08-14 18:26 | disposition home or self-care (01) ==
LOC: HO.HHCLNP 18:25
PROVIDERS: Visit Provider Emergency Medicine
DX: R82.90 Unspecified abnormal findings in urine (principal)
CPT/HCPCS: 0352U; 87491; 87591

== ENCOUNTER 2023-10-14 16:25 | Outpatient (REF) | payer OTHER, SELFPAY ==
[2023-10-15 09:27] LABS: Bacterial Vaginosis PCR NEGATIVE (Negative); Candida Group PCR NOT DETECTED (Not Detect); Candida glab krusei PCR NOT DETECTED (Not Detect); Trichomonas vaginalis PCR NOT DETECTED (Not Detect)
== END 2023-10-14 16:26 | disposition home or self-care (01) ==
LOC: HO.HHCLNP 16:25
PROVIDERS: Visit Provider General Practice
DX: R39.9 Unspecified symptoms and signs involving the genitourinary system (principal)
CPT/HCPCS: 0352U

== ENCOUNTER 2023-10-15 09:04 | Outpatient (REF) | payer OTHER, SELFPAY ==
[2023-10-15 11:46] LABS: Estimated Average Glucose 103 mg/dL; Hemoglobin A1c % 5.2 % (<6.0)
[2023-10-15 12:01] LABS: Cholesterol 172 mg/dL (<200); HDL Cholesterol 40 mg/dL (>40); LDL Cholesterol Calculated 104 mg/dL (<100); Triglycerides 142 mg/dL (<150)
[2023-10-15 12:06] LABS: TSH reflex Free T4 2.04 uIU/mL (0.32-4.0)
== END 2023-10-15 09:05 | disposition home or self-care (01) ==
LOC: HO.HHCL 09:04
PROVIDERS: Visit Provider General Practice
DX: R73.03 Prediabetes (principal); E03.9 Hypothyroidism, unspecified; E78.5 Hyperlipidemia, unspecified
CPT/HCPCS: 36415; 80061; 83036; 84443

== ENCOUNTER 2023-12-12 11:05 | Outpatient (REF) | payer OTHER, SELFPAY ==
[2023-12-12 14:01] LABS: MANUAL DIFF FLAG NO
[2023-12-12 14:10] LABS: Basophils Percent Auto 0.3 % (0-2); Eosinophils Percent Auto 0.6 % (0-4); Hematocrit 37.7 % (37.0-47.0); Hemoglobin 12.5 g/dl (12.0-16.0); Imm Gran Abs Auto 0.02 X10*3/uL (0.00-0.03); Imm Gran Pct Auto 0.3 % (0.0-0.4); Lymphocytes Percent Auto 30.4 % (20-40); Mean Corpuscular HGB Conc 33.2 g/dl (31.0-35.0); Mean Corpuscular Hemoglobin 28.8 pg (27.0-33.0); Mean Corpuscular Volume 86.9 fL (80.0-98.0); Mean Platelet Volume 10.4 fL (9.4-12.3); Monocytes Absolute Auto 0.4 X10*3/uL (0.1-1.2); Monocytes Percent Auto 6.5 % (2-11); Neutrophils Percent Auto 61.9 % (45-73); Platelet Count 315 X10*3/uL (160-400); Red Blood Count 4.34 X10*6/uL (4.20-5.50); Red Cell Distribution Width 14.2 % (11.0-16.0); White Blood Count 6.5 X10*3/uL (4.8-10.8)
[2023-12-12 14:42] LABS: Alanine Aminotransferase 18 U/L (0-31); Alkaline Phosphatase 102 U/L (39-117); Anion Gap 13 (12-20); Aspartate Amino Transferase 26 U/L (5-31); Bilirubin Total 0.2 mg/dL (0.0-1.0); Blood Urea Nitrogen 11 mg/dL (9-16); Calcium 9.2 mg/dL (8.4-10.2); Carbon Dioxide 23 mmol/L (22-29); Chloride 107 mmol/L (96-108); Estimated Glomerular Filt Rate > 60; Glucose Random 95 mg/dL (60-115); Sodium 139 mmol/L (135-145); Total Protein 7.3 g/dL (6.5-8.0); Vitamin D 25-OH Total 32.4 ng/mL (>30)
== END 2023-12-12 11:06 | disposition home or self-care (01) ==
LOC: HO.HHCL 11:05
PROVIDERS: Visit Provider Internal Medicine
DX: R23.3 Spontaneous ecchymoses (principal); R00.2 Palpitations; E03.9 Hypothyroidism, unspecified
CPT/HCPCS: 36415; 80053; 82306; 85025

== ENCOUNTER → 2024-03-26 09:42 | Outpatient (BNV) | payer OTHER, SELFPAY | PROVIDERS: Visit Provider Radiology Diagnostic Radiology | DX: M25.562 Pain in left knee (principal) | CPT/HCPCS: 73564 ==

== ENCOUNTER 2024-05-26 13:27 | Outpatient (REF) | payer OTHER, SELFPAY ==
--- NOTE | ~2024-05-26 | XR_ITS ---
EXAMINATION: XR CHEST CLINICAL INFORMATION: cough w/ chills COMPARISON: 03/27/18. TECHNIQUE: 2 views of the chest were obtained. FINDINGS: The cardiac, hilar, and mediastinal contours are normal. The lungs are clear bilaterally. There is no pneumothorax or pleural effusion. There is no focal osseous or soft tissue abnormality. XR/XR chest 2V IMPRESSION: Normal chest. Electronically signed by: Luke Dubon MD 05/26/2024 01:47 PM EDT
--- OUTSIDE RECORDS SUMMARY | 2024-05-26 16:24 | XMS_ITS | Clinical Summary ---
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 1 Active cyanocobalamin (Vitamin B-12) 1000 MCG tablet Take 1 tablet by mouth at bed time. 1 Active atorvastatin (Lipitor) 10 MG tablet Take 1 tablet (10 mg) by mouth at bedtime. 90 tablet 1 3 Active fluticasone (Flonase) 50 MCG/ACT nasal spray Administer 2 sprays into each nostril in the morning. Shake gently. Before first use, prime pump. After use, clean tip and replace cap. 16 g 2 4 Active Diclofenac Sodium (Voltaren) 1 % gel USE TID 100 g 2 4 Active levothyroxine (Synthroid, Levoxyl) 88 MCG tabletIndication s:Hypothyroidism , unspecified type Take 1 tablet (88 mcg) by mouth before breakfast. 90 tablet 2 4 Active ergocalciferol (Vitamin D2) 1.25 MG (05395 UT) capsule Take 1 capsule (1.25 mg) by mouth 1 (one) time per week. 4 capsule 3 4 12/24/20 25 Active Tirzepatide-Weig ht Management (Zepbound) 5 MG/0.5ML solution auto-injectorInd ications:Obesity (BMI 30-39.9) Inject 0.5 mL (5 mg) under the skin 1 (one) time per week. 2 mL 2 5 06/09/19 25 Active dextromethorphan -guaiFENesin (Tussin DM) 10-100 MG/5ML liquidIndication s:Acute cough Take 10 mL by mouth every 4 (four) hours if needed for cough for up to 10 days. 473 mL 5 06/06/19 25 Active Active Problems Problem Noted Date Diagnosed Date Screening mammogram for breast cancer 03/26/2024 Assessment & Plan (03/26/2024 9:58 AM EST): She had a reduction mammoplasty on March 2023 and wants to defer mammogram for at least 1 year. Will FU in 6 months. Chronic pain of left knee 03/26/2024 Assessment & Plan (03/26/2024 12:53 PM EST): Most likely meniscus injury. Recommended Ibuprofen + Tylenol x 1 week, then PRN. Order XR and refer to PT. Class 2 obesity due to exces s calories without serious comorbidity with body mass index (BMI) of 35.0 to 35.9 in adult 03/26/2024 Assessment & Plan (03/26/2024 10:40 AM EST): Pt is doing great on Zepbound, will start 5 mg/week next week and will FU in 2-3 months. Recommended to decrease soda and sugary beverage consumption, increase protein intake with meals (at least 1 portion of protein with each meal) to assist with satiety, increase dietary fiber. Recommended at least 150 min/week of moderate intensity exercise. Obesity (BMI 30-39.9) 02/11/2024 Assessment & Plan (03/16/2024 10:41 AM EST): Patient is doing well on Zepbound and tolerates well. Increased Zepbound to 5mg and FU with me at next scheduled appointment. Assessment & Plan (02/13/2024 2:19 PM EST): She has been to a conventional underwriter in the past . I will prescribe Semaglutide. I told her to avoid taking someone else's medications as she may not know if it is indicated for her. I will start Wegovy 0.25 mg per week and fu in 4-6w. Discussed re weight reduction options including exercise, life style modifications, diet. Recommended to decrease soda and sugary beverage consumption, increase protein intake with meals (at least 1 portion of protein with each meal) to assist with satiety, increase dietary fiber Recommended at least 150 min/week of moderate intensity exercise. Decreased sex drive 02/11/2024 Assessment & Plan (02/11/2024 10:29 AM EST): Pt seems to have a natural decline of sex drive over the years, with no other /s of perimenopause and she is comfortable with it. She will increase exercise and increase water intake and she continues with the weight loss. FU with me in 1 year or earlier PRN. Petechial eruption 12/12/2023 Assessment & Plan (12/12/2023 1:29 PM EDT): On lower extremities, could be related to vascular insufficiency. Check CBC. Fu in 4-6 weeks. Palpitations 12/12/2023 Assessment & Plan (02/11/2024 9:56 AM EST): Resolved. Assessment & Plan (12/12/2023 10:58 AM EDT): Heart rate is normal now as well as labs. Keep a symptoms diary and fu in 6 weeks or earlier prn. Recommended to stay hydrated and continue with OTC supplements. Hyperlipidemia 02/02/2022 Assessment & Plan (02/11/2024 9:58 AM EST): We discussed re rx options. Recommended moderate amount of exercise and increase consumption of fruit, vegetables, fish and high fiber foods. Should decrease consumption of highly saturated fats or trans fats. Continue low dose statin. FU lipids in 1 year. Hypothyroidism 02/02/2022 Assessment & Plan (02/11/2024 10:27 AM EST): TSH is at goal, continue Levothyroxine 88 mcg. Check TSH in 6-8 months. Assessment & Plan (12/12/2023 10:59 AM EDT): Controlled, continue Levothyroxine 88 mcg. FU TSH in 6-8 months. Prediabetes 02/02/2022 Bacterial vaginitis 02/02/2022 Assessment & Plan (10/16/2023 6:13 AM EDT): Patient's history and exam most consistent with BV, UA is clear and discharge and odor are the predominant symptoms. Will also order labs for pt's upccoming transfer patient appointment. Assessment & Plan (02/02/2022 2:56 PM EST): Wet prep w/ clue cells, will send metronidazole. Also will order UCx and swab send out, f/u with PCP if no improvement. 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 Assessment & Plan (03/16/2024 10:40 AM EST): Most likely dry eye versus allergic conjunctivitis versus ocular herpes (less likely). Given history of acute oral HSV lesions, she will be seen in the eye clinic tomorrow. Use natural tears. Encounters Date Type Department Care Team Description 05/26/2024 1:00 PM EDT Office Visit [facility] [address] [place] [address] Kayleigh Nevarez ANP Acute cough (Primary Dx) 05/15/2024 3:30 PM EDT Office Visit [facility] [address] [place], [place] [phone] Tarka, Holly, OD Chalazion left lower eyelid (Primary Dx); Left-sided headache 05/15/2024 Travel 03/27/2024 Telephone [facility] [address] [place] [address] Caty Christopher MD imaging letter 03/26/2024 9:00 AM EST Office Visit [facility] [address] [place] [address] Caty Christopher MD Class 2 obesity due to excess calories without serious comorbidity with body mass index (BMI) of 35.0 to 35.9 in adult (Primary Dx); Chronic pain of left knee; Conjunctival lesion; Screening mammogram for breast cancer; Dietary counseling; Exercise counseling 03/26/2024 Travel 03/25/2024 Telephone [facility] [address] [place] [address] Kaley Lal MA Chart prep 03/17/2024 9:45 AM EST Office Visit [facility] [address] [place] [address] TarHolly larson, OD Hordeolum externum of left lower eyelid (Primary Dx) 03/16/2024 9:45 AM EST Office Visit [facility] [address] [place] [address] Caty Christopher MD Conjunctival lesion (Primary Dx); Obesity (BMI 30-39.9) 03/16/2024 Travel from Last 3 Months Immunizations Name Administration Dates Next Due Hep B, adult 09/12/2017,05/13/2017,04/09/2017 Influenza Injectable Quadriv alant Preservative Free IIV4 MDCK 12/12/2020,11/04/2018 Influenza injectable quadriv alent IIV4 with preservative 11/18/2018,11/21/2017,11/27/2016,2015 Influenza injectable quadriv alent preservative free 11/05/2022,10/31/2021,10/25/2017 Influenza, seasonal, injecta ble, preservative free 11/26/2023 Moderna Covid-19 Vaccine 12+ 12/17/2020,05/04/19 21,04/05/2020 Pfizer Covid-19 Vaccine 12+ 11/26/2023, Pfizer Covid-19 Vaccine 12+ Bivalent 11/20/2021 Tdap 10/23/2019,11/19/2015 Family History Medical History Relation Name Comments Diabetes Father Hyperlipidemia Mother Hypothyroidism Mother htn Mother Relation Name Status Comments Father Mother Alive Social History Tobacco Use Types Packs/Day Years Used Date Smoking Tobacco: Never Passive Smoke Exposure: Never Smokeless Tobacco: Never Tobacco Cessation:Counseling Given: Not Answered Alcohol Use Standard Drinks/Week Comments Never 0 (1 standard drink = 0.6 oz pur e alcohol) Depression Answer Date Recorded Patient Health Questionnaire-9 Score 0 02/11/2024 Patient Health Questionnaire-9 Score 0 02/11/2024 Last PHQ-9: Questionnaire Data Not on file 1 04/13/2023 Housing Stability Answer Date Recorded What is your housing situation today? I have isaac hidalgo 12/12/[address] you li ve. Do you have problems with any of the following? None of the above 12/12/2023 Food Insecurity Answer Date Recorded Within the past 12 months, y ou worried that your food would run out before you got money to buy more: Never True 12/12/2023 Within the past 12 months,th e food you bought just didn't last and you didn't have enough money to get more: Never True Transportation Answer Date Recorded In the past 12 months, has l ack of transportation kept you from medical appts, meetings, work or from getting things needed for daily living? No 12/12/2023 Utilities Answer Date Recorded In the past 12 months, has t he electric, gas, oil or water company threatened to shut off services in your home? No 12/12/2023 Depression Answer Date Recorded Patient Health Questionnaire-2 Score 0 02/11/2024 Internet Access Answer Date Recorded Internet Access Q1 No 12/12/2023 Internet Access Q2 I do not want or need it 11/19 Comments No Sex and Gender Information Value Date Recorded Sex Assigned at Female 12/18/2021 10:39 AM EDT Legal Sex Female 10:39 AM EDT Gender Identity Female 12/18/2021 10:39 AM EDT Sexual Orientation Choose not to disclose 2021 10:39 AM EDT Last Filed Vital Signs Vital Sign Reading Time Taken Comments Blood Pressure 136/80 05/26/2024 1:00 PM EDT Pulse 81 05/26/2024 1:00 PM EDT Temperature 36.8 ??C (98.3 ??F) 05/26/2024 1:00 PM ED T Respiratory Rate 18 05/26/2024 1:00 PM EDT Oxygen Saturation 96% 05/26/2024 1:00 PM EDT Inhaled Oxygen Concentration - - Weight 91.6 kg (202 lb) 05/26/2024 1:00 PM EDT Height 165.1 cm (5' 5 ) 03/26/2024 9:10 AM EST Body Mass Index 33.61 03/26/2024 9:10 AM EST Plan of Treatment Upcoming Encounters Date Type Department Care Team (Late st Contact Info) Description 06/10/2024 9:00 AM EDT Office Visit [facility] [address] [place], [place] [phone] Caty Christopher MD [address] [place], [place] [phone] Health Maintenance Due Date Last Done Comments HIV Screening 1980 Alcohol/Substance Use Screening 1992 Hepatitis C Screening 01/20/1998 Mammogram 06/27/2023 06/26/2021 Diabetes: Hemoglobin A1C 10/14/2024 024, 11/01/2021, 12/19/2020 Family Planning (PISQ) 12/11/2024 12/12/2023 SDOH Screening 12/11/2024 12/12/2023 Depression Screening 02/10/2025 02/11/2024, 02/11/20 24 Tobacco Screening 05/26/2025 05/26/2024 Cervical Cancer Screening 07/27/2026 HPV/Cotest 07/27/2026 07/27/2021, 07/27/2021 Pap Smear 07/27/2026 07/27/2021 Lipid Panel 10/14/2028 10/15/2023, 01/18, 11/01/2021, Additional history exists DTaP/Tdap/Td Vaccines (3 - Td or Tdap) 10/22/2029 10/23/2019, 11/19/2015 Zoster Vaccines (1 of 2) 01/20/2030 RSV Patients and Patients Aged 60 years or older (1 - 1-dose 75+ series) 01/20/2055 Hepatitis B Vaccines Completed 09/12/2017, 05/13/2017, 04/09/2017 COVID-19 Vaccine Completed 11/26/2023, 07/2022, 11/20/2021, Additional history exists Influenza Vaccine Completed 11/26/2023, , 10/31/2021, Additional history exists HIB Vaccines Aged Out No longer eligi ble based on patient's age to complete this topic HPV Vaccines Aged Out No longer eligi ble based on patient's age to complete this topic Hepatitis A Vaccines Aged Out No long er eligible based on patient's age to complete this topic IPV Vaccines Aged Out No longer eligi ble based on patient's age to complete this topic Meningococcal Vaccine Aged Out No bipin arleen eligible based on patient's age to complete this topic Pneumococcal Vaccine: Pediatrics (0 to 5 Years) and At-Risk Patients (6 to 49) Years) Aged Out No longer eligible based on patient's age to complete this topic RSV under 20 months Aged Out No longe r eligible based on patient's age to complete this topic Rotavirus Vaccines Aged Out No longer eligible based on patient's age to complete this topic Procedures Procedure Name Priority Date/Time Associated Diagnosis Comments XR CHEST 2 VIEWS Routine 05/26/2024 1:29 PM EDT Acute cough POCT INFLUENZA B (ID NOW RAPID MOLECULAR) Routine 05/26/2024 1:15 PM EDT Acute cough POCT INFLUENZA A (ID NOW RAPID MOLECULAR) Routine 05/26/2024 1:15 PM EDT Acute cough POCT RAPID COVID ANTIGEN Routine 05/26/2024 1:15 PM EDT Acute cough SLIT LAMP PHOTOGRAPHY - OS - LEFT EYE Routine 05/15/2024 4:25 PM EDT Chalazion left lower eyelid XR KNEE 4+ VIEWS LEFT Routine 03/26/2024 9:42 AM EST Chronic pain of left knee HEMOGLOBIN A1C Routine 10/15/2023 8:49 AM EDT Prediabetes LIPID PANEL, STANDARD Routine 10/15/2023 8:49 AM EDT Hyperlipidemia, unspecified hyperlipidemia type ZZZ HISTORICAL HPV E6/E7 RFLX PEDRO 16 18/45 Routine 07/27/2021 10:13 AM EDT HM PAP/HPV Routine 07/27/2021 MAMMOGRAM GENERIC Routine 06/26/2021 8:1 5 AM EDT from Last 3 Months or Most Recently Relevant to Health Maintenance Results * XR Chest 2 Views (05/26/2024 1:29 PM EDT) Anatomical Region Laterality Modality Chest Radiographic Alejandra ging 05/26/2024 1:29 PM EDT Narrative 05/26/2024 1:50 PM EDT ?[facility] ?[address] ?[place] [address] ?XRay Report ? Signed ? Patient: Motazedi,Capri ?MR#: [id number] ?? 05 ? : 1980 ?Acct:[id number] ? Age/Sex: 44 / F ?ADM Date: 05/26/24 ? Loc: HO.HHCX ? Attending Dr: Kayleigh Nevarez COMMUNICATIONS DEPARTMENT CHAIR ? Ordering Physician: KAYLEIGH NEVAREZ NP ?? Date of Service: 05/26/24 ?? Procedure(s): XR chest 2V ?? Accession Number(s): [id number] ? cc: KAYLEIGH NEVAREZ NP ? EXAMINATION: ?? XR CHEST ? CLINICAL INFORMATION: ?? cough w/ chills ? COMPARISON: ?? 03/27/18. ? TECHNIQUE: ?? 2 views of the chest were obtained. ? FINDINGS: ?? The cardiac, hilar, and mediastinal contours are normal. ? The lungs are clear bilaterally. There is no pneumothorax or pleural ?? effusion. ? There is no focal osseous or soft tissue abnormality. ? XR/XR chest 2V ?? IMPRESSION: ?? Normal chest. ? Electronically signed by: ??Luke Dubon MD ??05/26/2024 01:47 PM EDT RP ? Dictated By: ?Luke Dubon MD ? Signed By: ?<Electronically signed by Luke Dubon MD in OV> ?05/26/24 1347 ? DD/ 1329 ? TD/TT: 05/26/24 1344 ? Practice Assistant: ? Procedure Note Donotyokastainterpreter, Image - 05/26/[address] [address] XRay Report Signed Patient: Manjeet Renee#: [id number] [birth year] : 1980Acct:[id number] Age/Sex: 44 / FADM Date: 05/26/24 Loc: HO.HHCX Attending Dr: Kayleigh Nevarez NP Ordering Physician: KAYLEIGH NEVAREZ NP Date of Service: 05/26/24 Procedure(s): XR chest 2V Accession Number(s): [id number] cc: KAYLEIGH NEVAREZ NP EXAMINATION: XR CHEST CLINICAL INFORMATION: cough w/ chills COMPARISON: 03/27/18. TECHNIQUE: 2 views of the chest were obtained. FINDINGS: The cardiac, hilar, and mediastinal contours are normal. The lungs are clear bilaterally. There is no pneumothorax or pleural effusion. There is no focal osseous or soft tissue abnormality. XR/XR chest 2V IMPRESSION: Normal chest. Electronically signed by: Luke Dubon MD 05/26/2024 01:47 PM EDT Dictated By: Luke Dubon MD Signed By: <Electronically signed by Luke Dubon MD in OV> 05/26/24 1347 DD/ 1329 TD/TT: 05/26/24 1344 Practice Assistant: us Kayleigh Nevarez ANP IMG XR PROCEDURES Final Result * Influenza B (ID NOW Rapid Molecular) (05/26/2024 1:15 PM EDT) Influenza B Negative Negative, Indeterminate [facility] Swab 05/26/2024 1:15 PM EDT us Kayleigh Nevarez ANP POINT OF CARE TEST ENTER/EDIT OR DERABLES Final Result Performing Organization Address [facility] Co de Phone Number [facility] [address] [place] [phone] * Influenza A (ID NOW Rapid Molecular) (05/26/2024 1:15 PM EDT) Influenza A Negative Negative, Indeterminate [facility] Swab 05/26/2024 1:15 PM EDT Kayleigh Nevarez ANP POINT OF CARE TEST ENTER/EDIT OR DERABLES Final Result Performing Organization Address [facility] de Phone Number [facility] [address] [place] [phone] * POCT Rapid COVID Ag (05/26/2024 1:15 PM EDT) Rapid COVID Ag Negative [facility] Swab 05/26/2024 1:15 PM EDT Kayleigh Nevarez [facility] POINT OF CARE TEST ENTER/EDIT OR DERABLES Final Result Performing Organization Address [facility] de Phone Number [facility] [address] [place] [phone] * Slit Lamp Photography - OS - Left Eye (05/15/2024 4:25 PM EDT) Narrative Holly Harding, OD - 05/15/2024 4:25 PM EDT Anterior Segment Photo Interpretation Reliability: OS: Adequate quality - slightly out of focus Test Details OS: Small white nodule nasally in inferior palpebral conjunctival with surrounding injection and papillae Comments: ?? Chalazion left lower lid (LLL). Monitor. Holly Harding OD OPHTH PHOTOGRAPHY Final Result * XR Knee 4+ Views Left (03/26/2024 9:42 AM EST) Anatomical Region Laterality Modality Lower Extremities, Knee Left Radiogra phic Imaging 03/26/2024 9:42 AM EST Narrative 03/26/2024 10:21 AM EST ?[facility] ?[address] ?[place] [address] ?XRay Report ? Signed ? Patient: Motazedi,Capri ?MR#: [id number] ?? [birth year] ? : 1980 ?Acct:[id number] ? Age/Sex: 44 / F ?ADM Date: 03/26/24 ? Loc: HO.HHCX ? Attending Dr: Caty Christopher MD ? Ordering Physician: Caty Christopher MD ?? Date of Service: 03/26/24 ?? Procedure(s): XR knee LT 4V ?? Accession Number(s): [id number] ? cc: Caty Christopher MD ? EXAMINATION: ?? XR KNEE, LEFT ? CLINICAL INFORMATION: ?? left knee pain ??, chronic ? COMPARISON: ?? 05/17/2023. ? TECHNIQUE: ?? Four views of the left knee. ? FINDINGS: ?? No fracture or joint effusion. Alignment is anatomic. Joint spaces are ?? maintained. No abnormal soft tissue calcification. ? XR/XR knee LT 4V ?? IMPRESSION: ?? Normal left knee. No change. ? Electronically signed by: ??Luke Dubon MD ??03/26/2024 10:18 AM EST RP ? Dictated By: ?Luke Dubon MD ? Signed By: ?<Electronically signed by Luke Dubon MD in OV> ?03/26/24 1018 ? DD/ 0942 ? TD/TT: 03/26/24 1000 ? Practice Assistant: ? Procedure Note Marline, Image - 03/26/[address] [address] XRay Report Signed Patient: Manjeet Renee#: [id number] [birth year] : 1980Acct:[id number] Age/Sex: 44 / FADM Date: 03/26/24 Loc: HO.HHCX Attending Dr: Caty Christopher MD Ordering Physician: Caty Christopher MD Date of Service: 03/26/24 Procedure(s): XR knee LT 4V Accession Number(s): [id number] cc: Caty Christopher MD EXAMINATION: XR KNEE, LEFT CLINICAL INFORMATION: left knee pain , chronic COMPARISON: 05/17/2023. TECHNIQUE: Four views of the left knee. FINDINGS: No fracture or joint effusion. Alignment is anatomic. Joint spaces are maintained. No abnormal soft tissue calcification. XR/XR knee LT 4V IMPRESSION: Normal left knee. No change. Electronically signed by: Luke Dubon MD 03/26/2024 10:18 AM EST Dictated By: Luke Dubon MD Signed By: <Electronically signed by Luke Dubon MD in OV> 03/26/24 1018 DD/ 0942 TD/TT: 03/26/24 1000 Practice Assistant: us Caty Christopher MD IMG XR PROCEDURES Final Result * Hemoglobin A1c (10/15/2023 8:49 AM EDT) Hemoglobin A1c 5.2 <6.0 % [facility] Comment:Hemoglobin A1C Refer ence Range Adults: 4.8 - 6.0 % Non diabetic: < 6.0 % Goal: < 7.0 %Additional Action Suggested: > 8.0 %Note: Hemoglobin A1c results are invalid for patients with abnormal amounts of HbF. Blood transfusions may impact the HbA1c concentration in the patient sample. Estimated Average Glucose 103 mg/dL [facility] Comment:eAG = Estimated ave rage glucose which is %A1C expressed asaverage glucose, using the formula of the I2D-JcvjbxsWcwkrnf Glucose study (ADAG), Diabetes Care, Vol.31,#8,Sep. 2007 Blood Venous blood specimen / Unknown 10/15/2023 8:49 AM EDT 10/15/2023 11:22 AM EDT us Silva Tim MD LAB BLOOD ORDERABLES Final Res ult [facility] [address] [place] [phone] * (ABNORMAL) Lipid Panel, Standard (10/15/2023 8:49 AM EDT) Triglycerides 142 <150 mg/dL [facility] Comment:Desirable Triglyceri de: less than 150 mg/dLBorderline High Triglyceride 150-199 mg/dLHigh Triglyceride: 200-499 mg/dLVery High Triglyceride: greater than or equal to 5OO mg/dL Cholesterol 172 <200 mg/dL [facility] Comment:Desirable Cholestero l: less than 200 mg/dLBorderline High Cholesterol: 200-239 mg/dLHigh Cholesterol: greater than 239 mg/dL LDL Cholesterol Calculated 104(H) <100 mg/dL [facility] Comment:Desirable LDL: less than 100 mg/dLNear Optimal/Above Optimal LDL: 110- 129 mg/dLBorderline High LDL: 130-159 mg/dLHigh LDL: 160-189 mg/dLVery High LDL: greater than or equal to 190 mg/dL HDL Cholesterol 40(L) >40 mg/dL [facility] Comment:Desirable HDL: great er than 40 mg/dL Note: This HDL assay may give artificially low results in patients with liver disease. Blood Venous blood specimen / Unknown 10/15/2023 8:49 AM EDT 10/15/2023 11:22 AM EDT Silva Tim MD LAB BLOOD ORDERABLES Final Res ult [facility] [address] [place] [phone] * HPV E6/E7 RFLX PEDRO 16 18/45 (07/27/2021 10:13 AM EDT) HPV 16 RNA [facility]NP [facility] HPV 18/45 RNA [facility] HPV E6 E7 ADD [facility]NP [facility] HPV mRNA E6/E7 rflx Not Detected Not Detected [facility] Comment: Methodology: Donor Relations Manager-Mediated Amplification This assay detects E6/E7 viral messenger RNA (mRNA) from 14 high-risk HPV types (16,18,31,33,35,39,45,51,52,56,58,59,66,68). Cervical sources are required for HPV testing. If a vaginal source from a patient who has had a total hysterectomy with removal of cervix was submitted, please contact the testing laboratory for alternative testing options. For additional information, please refer to http://education.[employer]/faq/JMF015x3 (This link if provided for information/ educational purposes only.) THIS TEST WAS PERFORMED AT: [facility] [address] [place] [address] [address] [place], [place] [phone] DEJA ERIC MD 07/27/2021 10:1 3 AM EDT Keiko Iraheta HISTORICAL/NON ORDERABLE LABS Fi nal Result Performing Organization Address City/State/[facility] Co de Phone Number [facility] [address] * Hm Pap Smear (07/27/2021) Alvaro Provider HEALTH MAINTENANCE Final Result * Mammography Report 1 (06/26/2021 8:15 AM EDT) Anatomical Region Laterality Modality Breast Bilateral Mammography 06/26/2021 8:15 AM EDT Narrative 06/27/2021 8:07 AM EDT Refer to the Notes tab for result details [facility] Procedure: Mammography Report 1 Procedure Note ProviderAlvaro MD - 05/13/2022 Refer to the Notes tab for result details [facility] Procedure: Mammography Report 1 Aydin Mcallister MD IMG BI PROCEDURES Final Resu lt from Last 3 Months or Most Recently Relevant to Health Maintenance Insurance [employer] Care Teams Mosaic Tile Maker Relationship Specialty Start Date End Date Caty Christopher MD [address] [place] [phone] PCP - General Internal Medicine 09/30/23
--- OUTSIDE RECORDS SUMMARY | 2024-05-26 16:24 | XMS_ITS | Encounter Summary ---
Author Organization [employer] Address [address] [facility] 7t [place] [address] Care Team Providers Care Planning Manager Name Role Phone Martha Cruz MD Primary Care Pro vider Caty Christopher MD Primary Care Provider + Encounter Details Date Type Department Care Team (Late st Contact Info) Description 11/09/2022 Orders Only [facility] [address] [place] [address] [phone] ProviderAlvaro MD Social History Tobacco Use Types Packs/Day Years Used Date Smoking Tobacco: Never Passive Smoke Exposure: Never Smokeless Tobacco: Never Alcohol Use Standard Drinks/Week Comments Never 0 (1 standard drink = 0.6 oz pur e alcohol) Comments Unknown Sex and Gender Information Value Date Recorded Sex Assigned at Female 12/18/2021 10:39 AM EDT Legal Sex Female 10:39 AM EDT Gender Identity Female 12/18/2021 10:39 AM EDT Sexual Orientation Choose not to disclose 2021 10:39 AM EDT documented as of this encounter Plan of Treatment Upcoming Encounters Date Type Department Care Team (Late st Contact Info) Description 06/10/2024 9:00 AM EDT Office Visit [facility] [address] [place] [address] [phone] Caty Christopher MD [address] [place] [phone] documented as of this encounter Procedures Procedure Name Priority Date/Time Associated Diagnosis Comments HM PAP/HPV Routine 07/27/2021 documented in this encounter Results * Hm Pap Smear (07/27/2021) us Historical Provider HEALTH MAINTENANCE Final Result documented in this encounter Visit Diagnoses Not on filedocumented in this encounter Care Teams Planning Manager Relationship Specialty Start Date End Date Martha Cruz MD [address] [place] [phone] PCP - General Internal Medicine 10/02/22 09/29/23 Caty Christopher MD [address] [place] [phone] PCP - General Internal Medicine 09/30/23 documented as of this encounter
--- OUTSIDE RECORDS SUMMARY | 2024-05-26 16:24 | XMS_ITS | Encounter Summary ---
Author Organization [employer] Address [address] [facility] 7 [place] [address] Care Team Providers Care Link Knitting Machine Operator Name Role Phone Aydin Mcallsiter MD Primary Care Provider Unava ilable Martha Cruz MD Primary Care Pro vider Caty Christopher MD Primary Care Provider + Encounter Details Date Type Department Care Team (Latest Contact Info) Description 04/24/2021 Abstract [facility] CONVERSION[facility] Dental, Provider, DDS Social History Tobacco Use Types Packs/Day Years Used Date Smoking Tobacco: Never Assessed Comments Unknown Sex and Gender Information Value Date Recorded Sex Assigned at Female 12/18/2021 10:39 AM EDT Legal Sex Female 10:39 AM EDT Gender Identity Female 12/18/2021 10:39 AM EDT Sexual Orientation Choose not to disclose 2021 10:39 AM EDT documented as of this encounter Plan of Treatment Upcoming Encounters Date Type Department Care Team ( Contact Info) Description 06/10/2024 9:00 AM EDT Office Visit [facility] [address] [place] [address] Caty Christopher MD [address] [place], [place] [phone] documented as of this encounter Visit Diagnoses Not on filedocumented in this encounter Care Teams Link Knitting Machine Operator Relationship Specialty Start Date End Date Aydin Mcallister MD PCP - General Family Medicine 12/22/20 10/01/22 Martha Cruz MD [address] [place] [phone] PCP - General Internal Medicine 10/02/22 09/29/23 Caty Christopher MD [address] [place] [phone] PCP - General Internal Medicine 09/30/23 documented as of this encounter
--- OUTSIDE RECORDS SUMMARY | 2024-05-26 16:24 | XMS_ITS | Encounter Summary ---
Author Organization [employer] Address [address] [facility] 7 [place] [address] Care Team Providers Care Field Pipelines Supervisor Name Role Phone Caty Christopher MD Primary Care Provider + Reason for Visit * Reason Comments Cough Nasal Congestion Encounter Details Date Type Department Care Team ([facility] st Contact Info) Description 05/26/2024 1:00 PM EDT Office Visit [facility] [address] [place], [place] [phone] Kayleigh Nevarez ANP [address] [place], [place] [phone] Acute cough (Primary Dx) Social History Tobacco Use Types Packs/Day Years [...] AM EDT documented as of this encounter Last Filed Vital Signs Vital Sign Reading Time Taken Comments Blood Pressure 136/80 05/26/2024 1:00 PM EDT Pulse 81 05/26/2024 1:00 PM EDT Temperature 36.8 ??C (98.3 ??F) 05/26/2024 1:00 PM ED T Respiratory Rate 18 05/26/2024 1:00 PM EDT Oxygen Saturation 96% 05/26/2024 1:00 PM EDT Inhaled Oxygen Concentration - - Weight 91.6 kg (202 lb) 05/26/2024 1:00 PM EDT Height - - Body Mass Index 33.61 03/26/2024 9:10 AM EST documented in this encounter Progress Notes * SUMEET Watkins - 05/26/2024 1:00 PM EDT Capri RonquillosaravananleightonEdward is 44 y.o. patient here today for sick visit. HPI Been sick w/ productive cough, sore throat, HICKEY, body aches for 4d. was sick. Taking OTC cough medication w/ good effect. Does note chills. Sometimes w/ paroxysms of cough that make her nauseated. 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 Negative for fatigue and fever. HENT: Positive for congestion and sore throat. Negative for sinus pressure and trouble swallowing. Respiratory: Positive for cough. Negative for chest tightness and shortness of breath. Cardiovascular: Negative for chest pain. Gastrointestinal: Positive for nausea. Negative for abdominal pain. Musculoskeletal: Positive for myalgias. Negative for back pain and neck pain. Patient Active Problem List Diagnosis Hyperlipidemia Hypothyroidism Prediabetes Bacterial vaginitis Petechial eruption Palpitations Obesity (BMI 30-39.9) Decreased sex drive Screening mammogram for breast cancer Chronic pain of left knee Class 2 obesity due to excess calories without serious comorbidity with body mass index (BMI) of 35.0 to 35.9 in adult Objective BP 136/80 (BP Location: Left arm, Patient Position: Sitting, BP Cuff Size: Adult) Pulse 81 Temp98.3 ??F (36.8 ??C) (Oral) Resp 18 Wt 202 lb (91.6 kg) SpO2 96% BMI 33.61 kg/m?? Physical Exam Vitals reviewed. Constitutional: General: She is not in acute distress. Appearance: Normal appearance. She is not ill-appearing. HENT: Head: Normocephalic and atraumatic. Eyes: General: No scleral icterus. Extraocular Movements: Extraocular movements intact. Pupils: Pupils are equal, round, and reactive to light. Neck: Comments: Tenderness w/ palpation L submandibular area, no lymphadenopathy Cardiovascular: Rate and Rhythm: Normal rate and regular rhythm. Pulmonary: Effort: Pulmonary effort is normal. No accessory muscle usage or respiratory distress. Breath sounds: Normal breath sounds. No wheezing. Neurological: Mental Status: She is alert and oriented to person, place, and time. Psychiatric: Mood and Affect: Mood normal. Behavior: Behavior normal. Diagnoses and all orders for this visit: Acute cough Covid and flu tests negative. Lungs CTAB but will check chest XR d/t chills. Requests cough syrup. OTC measures - hydrate, motrin/acetaminophen for sore throat/fever PRN, cough drops, honey/tea, etc. Call for worsening sx, SOB/EMMANUEL, fever not responding to OTC meds, need for triage. Do not go to work/school until fever free for at least 24hrs without use of APAP or NSAID. - POCT Rapid COVID Ag - Influenza A (ID NOW Rapid Molecular) - Influenza B (ID NOW Rapid Molecular) documented in this encounter Plan of Treatment Upcoming Encounters Date Type Department Care Team (Late st Contact Info) Description 06/10/2024 9:00 AM EDT Office Visit [facility] [address] [place] [address] Caty Christopher MD [address] [place] [phone] documented as of this encounter Procedures Procedure Name Priority Date/Time Associated Diagnosis Comments XR CHEST 2 VIEWS Routine 05/26/2024 1:29 PM EDT Acute cough POCT INFLUENZA B (ID NOW RAPID MOLECULAR) Routine 05/26/2024 1:15 PM EDT Acute cough POCT INFLUENZA A (ID NOW RAPID MOLECULAR) Routine 05/26/2024 1:15 PM EDT Acute cough POCT RAPID COVID ANTIGEN Routine 05/26/2024 1:15 PM EDT Acute cough documented in this encounter Results * XR Chest 2 Views (05/26/2024 1:29 PM EDT) Anatomical Region Laterality Modality Chest Radiographic Alejandra ging 05/26/2024 1:29 PM EDT Narrative 05/26/2024 1:50 PM EDT ?[facility] ?[address] [facility]. ?[place] [address] ?XRay Report ? Signed ? Patient: Motazedi,Capri ?MR#: [id number] ?? 05 ? : 1980 ?Acct:[id number] ? Age/Sex: 44 / F ?ADM Date: 04/08/25 ? Loc: HO.HHCX ? Attending Dr: Kayleigh Nevarez SCHOOL TRANSPORTATION SUPERVISOR ? Ordering Physician: KAYLEIGH NEVAREZ NP ?? Date of Service: 05/26/24 ?? Procedure(s): XR chest 2V ?? Accession Number(s): [id number] ? cc: KAYLEIGH NEVAREZ NP ? EXAMINATION: [...] DD/ 1329 ? TD/TT: 05/26/24 1344 ? Alumni Relations Manager: ? Procedure Note Ban Horan - 05/26/[address] [address] XRay Report Signed Patient: Manjeet Renee#: [id number] [birth year] : 1980Acct:[id number] Age/Sex: 44 / FADM Date: 05/26/24 Loc: HO.HHCX Attending Dr: Kayleigh Nevarez NP Ordering Physician: KAYLEIGH NEVAREZ NP Date of Service: 05/26/24 Procedure(s): XR chest 2V Accession Number(s): [id number] cc: KAYLEIGH NEVAREZ NP EXAMINATION: XR CHEST [...] 05/26/24 1347 DD/ 1329 TD/TT: 05/26/24 1344 Alumni Relations Manager: us Kayleigh Nevarez ANP IMG XR PROCEDURES Final Result * Influenza B (ID NOW Rapid Molecular) (05/26/2024 1:15 PM EDT) Influenza B Negative Negative, Indeterminate [facility] Swab 05/26/2024 1:15 PM EDT us Kayleigh Nevarez ANP POINT OF CARE TEST ENTER/EDIT OR DERABLES Final Result Performing Organization Address [facility] [employer] Phone Number [facility] [address] [place] [phone] * Influenza A (ID NOW Rapid Molecular) (05/26/2024 1:15 PM EDT) Influenza A Negative Negative, Indeterminate [facility] Swab 05/26/2024 1:15 PM EDT Kayleigh Nevarez ANP POINT OF CARE TEST ENTER/EDIT OR DERABLES Final Result Performing Organization Address [facility] [employer] Phone Number [facility] [address] [place] [phone] * POCT Rapid COVID Ag (05/26/2024 1:15 PM EDT) Rapid COVID Ag Negative [facility] Swab 05/26/2024 1:15 PM EDT us Kayleigh Nevarez ANP POINT OF CARE TEST ENTER/EDIT OR DERABLES Final Result Performing Organization Address [facility] [employer] Phone Number [facility] [address] [place] [phone] documented in this encounter Visit Diagnoses Diagnosis Acute cough- Primary documented in this encounter Additional Health Concerns Assessment Noted Time PHQ-9 Depression Total Score: 0 02/11/20 9:25 AM EST documented as of this encounter Care Teams Field Pipelines Supervisor Relationship Specialty Start Date End Date Caty Christopher MD [address] [place] [phone] PCP - General Internal Medicine 09/30/23 documented as of this encounter
--- OUTSIDE RECORDS SUMMARY | 2024-05-26 16:24 | XMS_ITS | Encounter Summary ---
Author Organization [employer] Address [address] [facility] 7 [place] [address] Care Team Providers Care Component Engineer Name Role Phone Martha Cruz MD Primary Care Pro vider Caty Christopher MD Primary Care Provider + Reason for Visit * Reason Comments Med Refill Encounter Details Date Type Department Care Team (Late st Contact Info) Description 05/09/2023 Refill [facility] [address] [place], [place] [phone] Name, MD Oracio [address] [place], [place] [phone] Social History Tobacco Use Types Packs/Day Years [...] Description 06/10/2024 9:00 AM EDT Office Visit [facility] [address] [place], [place] [phone] Caty Christopher MD [address] [place] [phone] documented as of this encounter Visit Diagnoses Not on filedocumented in this encounter Care Teams Component Engineer Relationship Specialty Start Date End Date Martha Cruz MD [address] [place] [phone] PCP - General Internal Medicine 10/02/22 09/29/23 Caty Christopher MD [address] [place] [phone] PCP - General Internal Medicine 09/30/23 documented as of this encounter
== END 2024-05-26 13:28 | disposition home or self-care (01) ==
LOC: HO.HHCX 13:27
PROVIDERS: Visit Provider Nurse Practitioner Primary Care
DX: R05.1 Acute cough (principal)
CPT/HCPCS: 71046

== ENCOUNTER → 2024-05-26 13:29 | Outpatient (BNV) | payer OTHER, SELFPAY | PROVIDERS: Visit Provider Radiology Diagnostic Radiology | DX: R05.9 Cough, unspecified (principal); R68.83 Chills (without fever) | CPT/HCPCS: 71046 ==

== ENCOUNTER 2024-08-03 16:12 | Outpatient (REF) | payer OTHER, SELFPAY ==
--- OUTSIDE RECORDS SUMMARY | 2024-08-03 17:51 | XMS_ITS | Encounter Summary ---
Author Organization [employer] Address [address] [facility] 7 [place] [address] Care Team Providers Care Kapok Machine Operator Name Role Phone Martha Cruz MD Primary Care Pro vider Caty Christopher MD Primary Care Provider + Encounter Details Date Type Department Care Team (Late Contact Info) Description 11/09/2022 Orders Only [facility] [address] [place] [address] [phone] ProviderAlvaro MD Social History Tobacco Use Types [...] Care Team (Late st Contact Info) Description 09/11/2024 9:00 AM EDT Office Visit [facility] [address] [place] [address] [phone] Caty Christopher MD [address] [place] [phone] documented as of this encounter Procedures Procedure Name Priority Date/Time Associated Diagnosis Comments HM PAP/HPV Routine 07/27/2021 documented in this encounter Results * Pap Smear (07/27/2021) us Historical Provider HEALTH MAINTENANCE Final Result documented in this encounter Visit Diagnoses Not on filedocumented in this encounter Care Teams Kapok Machine Operator Relationship Specialty Start Date End Date Martha Cruz MD [address] [place] [phone] PCP - General Internal Medicine 10/02/22 09/29/23 Caty Christopher MD [address] [place] [phone] PCP - General Internal Medicine 09/30/23 documented as of this encounter
[2024-08-04 02:52] LABS: CT PCR NOT DETECTED (Not Detect.); NG PCR NOT DETECTED (Not Detect.)
[2024-08-04 11:30] LABS: Bacterial Vaginosis PCR NEGATIVE (Negative); Candida Group PCR NOT DETECTED (Not Detect); Candida glab krusei PCR NOT DETECTED (Not Detect); Trichomonas vaginalis PCR NOT DETECTED (Not Detect)
== END 2024-08-03 16:13 | disposition home or self-care (01) ==
LOC: HO.HHCLNP 16:12
PROVIDERS: Visit Provider Internal Medicine
DX: N89.8 Other specified noninflammatory disorders of vagina (principal)
CPT/HCPCS: 81515; 87086; 87088; 87186; 87491; 87591

== ENCOUNTER 2024-09-14 09:33 | Outpatient (REF) | payer OTHER, SELFPAY ==
--- OUTSIDE RECORDS SUMMARY | 2024-09-14 10:25 | XMS_ITS | Clinical Summary ---
Author Organization [facility] Address [address] [place] [phone] Phone Care Team Providers Care Salon Receptionist Name Role Phone Pcp, Unknown Primary Care Provider Unavailabl e Medications atorvastatin (LIPITOR) 10 MG tablet Take 10 mg by mouth nightly at bedtime. at bedtime. 12/14/2020 Active levothyroxine (SYNTHROID, LEVOTHROID) 75 MCG tablet Take 75 mcg by mouth daily. 12/14/2020 Active metFORMIN (GLUCOPHAGE) 500 MG tablet TAKE 1 TABLET BY MOUTH EVERY DAY WITH LUNCH 12/14/2020 Active Social History Tobacco Use Types Packs/Day Years Used Date Smoking Tobacco: Never Assessed Education Answer Date Recorded Are you interested in more education? Not on tay e 06/15/2022 Are you concerned about learning? Not on file 06/15/2022 No 06/15/2022 No 06/15/2022 Digital Access Answer Date Recorded No 07/14/2022 No 07/14/2022 No 07/14/2022 Reliable internet access at home? Not on file 07/14/2022 Device with a working camera? Not on file Comments Unknown Sex and Gender Information Value Date Recorded Sex Assigned at Not on file Legal Sex Female 10:29 PM EDT Gender Identity Not on file Sexual Orientation Not on file Plan of Treatment Health Maintenance Due Date Last Done Comments Adult Td,Tdap Booster 1980 CREATININE LEVEL 1980 TSH LEVEL 1980 DEPRESSION SCREENING 1992 SMOKING Hx and SMOKELESS TOB ACCO SCREENING 01/20/1993 HEPATITIS C SCREENING 01/20/1998 HIV ONE-TIME SCREENING (18-6 5 YEARS) 01/20/1998 PAP SMEAR 01/20/2001 MAMMOGRAM 2020 COVID-19 VACCINE (2023-2 5 season) 2023 HEPATITIS A VACCINES Aged Out No long er eligible based on patient's age to complete this topic HIB VACCINES Aged Out No longer eligi ble based on patient's age to complete this topic MENINGOCOCCAL VACCINES (ACWY) Aged Out No longer eligible based on patient's age to complete this topic MENINGOCOCCAL VACCINES (B) Aged Out N o longer eligible based on patient's age to complete this topic PNEUMOCOCCAL VACCINES (0-49 years) Aged Out No longer eligible based on patient's age to complete this topic Medical Devices Not on file [employer] [place] LIMITED [facility] LIMITED HEALTH LIMITED HEALTH LIMITED [facility] Care Teams Salon Receptionist Relationship Specialty Start Date End Date Pcp, Unknown PCP - General 01/18/21 Additional Source Comments The information contained in this document represents components of the legal health record. It is not the complete legal health record.[facility]
[2024-09-14 12:23] LABS: Alanine Aminotransferase 13 U/L (0-31); Albumin Level 4.2 g/dL (3.5-5.0); Alkaline Phosphatase 91 U/L (39-117); Aspartate Amino Transferase 36 U/L (5-31); Cholesterol 146 mg/dL (<200); HDL Cholesterol 39 mg/dL (>40); Total Protein 7.3 g/dL (6.5-8.0); Triglycerides 105 mg/dL (<150)
[2024-09-14 12:48] LABS: Reflex LDLD? No
== END 2024-09-14 09:34 | disposition home or self-care (01) ==
LOC: HO.HHCL 09:33
PROVIDERS: PCP Internal Medicine; Visit Provider Internal Medicine
DX: E66.812 Obesity, class 2 (principal); Z68.35 Body mass index [BMI] 35.0-35.9, adult; E03.9 Hypothyroidism, unspecified
CPT/HCPCS: 36415; 80061; 80076; 84443

== ENCOUNTER 2024-11-19 09:51 | Outpatient (REF) | payer OTHER, SELFPAY ==
--- OUTSIDE RECORDS SUMMARY | 2024-11-19 09:00 | XMS_ITS | Encounter Summary ---
Author Organization [employer] Address [address] [facility] 7 [place] [address] Care Team Providers Care Director Case Name Role Phone Caty Christopher MD Primary Care Provider + Reason for Visit * Reason Comments Cough Sore Throat Encounter Details Date Type Department Care Team ([facility] st Contact Info) Description 11/19/2024 9:00 AM EDT Office Visit [facility] [address] [place] [address] [phone] Colt Kelly MD [address] [place] [phone] Traveler's diarrhea (Primary Dx); Viral URI Social History Tobacco Use Types Packs/Day Years Used Date Smoking Tobacco: Never Passive Smoke Exposure: Never Smokeless Tobacco: Never Tobacco Cessation:Counseling Given: Not Answered Alcohol Use Standard Drinks/Week Comments Never 0 (1 standard drink = 0.6 oz pur e alcohol) Depression Answer Date Recorded Patient Health Questionnaire-9 Score 3 09/11/2024 Patient Health Questionnaire-9 Score 3 09/11/2024 Last PHQ-9: Questionnaire Data Not on file 0 09/11/2024 Housing Stability Answer Date Recorded What is [...] Answer Date Recorded Patient Health Questionnaire-2 Score 3 09/11/2024 Internet Access Answer Date Recorded Internet Access [...] Sign Reading Time Taken Comments Blood Pressure 113/72 11/19/2024 9:02 AM EDT Pulse 78 11/19/2024 9:02 AM EDT Temperature 36.8 C (98.2 F) 11/19/2024 9:02 AM EDT Respiratory Rate 18 11/19/2024 9:02 AM EDT Oxygen Saturation 98% 11/19/2024 9:02 AM EDT Inhaled Oxygen Concentration - - Weight 81.2 kg (179 lb) 11/19/2024 9:02 AM EDT Height - - Body Mass Index 29.79 09/11/2024 8:57 AM EDT documented in this encounter Progress Notes * Colt Kelly MD - 11/19/2024 9:00 AM EDT Subjective History was provided by the patient. Capri Snider is a 44 y.o. female who presents for evaluation of cough, congestion, andsore throat for 2 days. Also has watery diarrhea and vomiting started 7 days ago while traveling [place]. States no F/C. States the area she traveled was not very sanitary. Denies BRBPR or melena. Has decreased appetite. States she took some Metronidazole pills given by her relative, but no improvement. Objective Vitals: 11/19/24 0902 BP: 113/72 BP Location: Left arm Patient Position: Sitting BP Cuff Size: Large adult Pulse: 78 Resp: 18 Temp: 98.2 ??F (36.8 ??C) TempSrc: Temporal SpO2: 98% Weight: 179 lb (81.2 kg) Physical Exam Vitals reviewed. Constitutional: General: She is not in acute distress. Appearance: Normal appearance. She is ill-appearing. She is not toxic-appearing or diaphoretic. HENT: Head: Normocephalic and atraumatic. Right Ear: Tympanic membrane, ear canal and external ear normal. Left Ear: Tympanic membrane, ear canal and external ear normal. Nose: Congestion present. No rhinorrhea. Mouth/Throat: Mouth: Mucous membranes are moist. Pharynx: Oropharynx is clear. Posterior oropharyngeal erythema present. No oropharyngeal exudate. Eyes: Extraocular Movements: Extraocular movements intact. Conjunctiva/sclera: Conjunctivae normal. Pupils: Pupils are equal, round, and reactive to light. Cardiovascular: Rate and Rhythm: Normal rate and regular rhythm. Heart sounds: Normal heart sounds. Pulmonary: Effort: Pulmonary effort is normal. No respiratory distress. Breath sounds: Normal breath sounds. No wheezing, rhonchi or rales. Chest: Chest wall: No tenderness. Abdominal: General: There is no distension. Tenderness: There is no abdominal tenderness. There is no guarding or rebound. Musculoskeletal: General: Normal range of motion. Cervical back: Neck supple. Lymphadenopathy: Cervical: Cervical adenopathy present. Skin: General: Skin is warm and dry. Neurological: General: No focal deficit present. Mental Status: She is alert and oriented to person, place, and time. Psychiatric: Mood and Affect: Mood normal. Behavior: Behavior normal. Office Visit on 11/19/2024 Component Date Value Ref Range Status Influenza A 11/19/2024 Negative Negative, Indeterminate Final Influenza B 11/19/2024 Negative Negative, Indeterminate Final Rapid COVID Ag 11/19/2024 Negative Final Rapid Strep A Screen 11/19/2024 Negative Negative, None Detected Final Capri was seen today for cough and sore throat. Diagnoses and all orders for this visit: Traveler's diarrhea (Primary) - azithromycin (Zithromax) 250 MG tablet; Take 2 tablets (500 mg) by mouth Once per day for 3 days. - Hepatitis A IgM; Future - Stool - Gastrointestinal panel; Future - Leukocytes Stool Qualitative; Future Viral URI - Influenza A (ID NOW Rapid Molecular) - Influenza B (ID NOW Rapid Molecular) - POCT Rapid COVID Ag - POCT rapid strep A manually resulted Patient presents with URI symptoms for 2 days and watery diarrhea for 7 days GI symptom onset while traveling in [place] No clinical evidence of acute abdomen Rapid COVID-19, Influenza, and Strep tests all negative today Likely with viral URI in a setting of Traveler's diarrhea Normal pulmonary exam and no respiratory distress O2 sat reassuring Discussed supportive care with ample hydration, sleep position and rest Will treat with Azithromycin 500mg daily for 3 days Potential adverse effects of the medication reviewed Check Hep A IgM Check Stool studies Recommend ample hydration and rest OTC supportive medications reviewed Droplet precautions discussed Advised to contact the clinic if no improvement of symptoms Indications for UC/ER use reviewed Work note provided documented in this encounter Plan of Treatment Upcoming Encounters Date Type Department Care Team (Late st Contact Info) Description 12/10/2024 9:00 AM EDT Telemedicine [facility] [address] [place] [address] Caty Christopher MD [address] [place] [address] 03/22/2025 9:00 AM EST Office Visit [facility] [address] [place] [address] Brenda Garza, OD [address] [place] [address] Scheduled Orders Name Type Priority Associated Diagnoses Orde r Schedule Hepatitis A IgM Lab Routine Traveler's diarrhea Expected: 11/19/2024 (Approximate), Expires: 11/19/2025 Stool - Gastrointestinal panel Microbiology Routine Traveler's diarrhea Expected: 11/19/2024 (Approximate), Expires: 11/19/2025 Leukocytes Stool Qualitative Lab Routine Traveler's diarrhea Expected: 11/19/2024, Expires: 11/19/2025 documented as of this encounter Procedures Procedure Name Priority Date/Time Associated Diagnosis Comments POCT INFLUENZA A (ID NOW RAPID MOLECULAR) Routine 11/19/2024 9:20 AM EDT Viral URI POCT INFLUENZA B (ID NOW RAPID MOLECULAR) Routine 11/19/2024 9:19 AM EDT Viral URI POCT RAPID COVID ANTIGEN Routine 11/19/2024 9:13 AM EDT Viral URI POCT RAPID STREP A Routine 11/19/2024 9: 12 AM EDT Viral URI documented in this encounter Results * Influenza A (ID NOW Rapid Molecular) (11/19/2024 9:20 AM EDT) [facility] Influenza A Negative Negative, Indeterminate [facility] Swab 11/19/2024 9:20 AM EDT us Colt Kelly MD POINT OF CARE TEST ENTER/EDIT OR DERABLES Final Result Performing Organization Address [facility] Co de Phone Number [facility] [address] [place] [address] [phone] * Influenza B (ID NOW Rapid Molecular) (11/19/2024 9:19 AM EDT) [facility] Influenza B Negative Negative, Indeterminate [facility] Swab 11/19/2024 9:19 AM EDT us Colt Kelly MD POINT OF CARE TEST ENTER/EDIT OR DERABLES Final Result Performing Organization Address [facility] Co de Phone Number [facility] [address] [place] [phone] * POCT Rapid COVID Ag (11/19/2024 9:13 AM EDT) Rapid COVID Ag Negative Swab 11/19/2024 9:13 AM EDT us Colt Kelly MD POINT OF CARE TEST ENTER/EDIT OR DERABLES Final Result * POCT rapid strep A manually resulted (11/19/2024 9:12 AM EDT) Rapid Strep A Screen Negative Negative, None Detected Swab 11/19/2024 9:12 AM EDT us Colt Kelly MD POINT OF CARE TEST ENTER/EDIT OR DERABLES Final Result documented in this encounter Visit Diagnoses Diagnosis Traveler's diarrhea- Primary Infectious diarrhea Viral URI Acute upper respiratory infections of unspecified site documented in this encounter Additional Health Concerns Assessment Noted Time PHQ-9 Depression Total Score: 3 09/12/19 25 9:34 AM EDT documented as of this encounter Care Teams Director Case Relationship Specialty Start Date End Date Caty Christopher MD [address] [place] [phone] PCP - General Internal Medicine 09/30/23 documented as of this encounter
--- OUTSIDE RECORDS SUMMARY | 2024-11-19 11:00 | XMS_ITS | Clinical Summary ---
Author Organization [employer] Address [address] [facility] 7t [place] [address] Care Team Providers Care Project Leader Name Role Phone Caty Christopher MD Primary Care Provider + Allergies No known active allergies Medications acetaminophen (Tylenol 8 Hour) 650 MG ER tablet Take 1 tablet by mouth in the morning and 1 tablet at noon and 1 tablet in the evening. 02/10/20 21 Active cyanocobalamin (Vitamin B-12) 1000 MCG tablet Take 1 tablet by mouth at bed time. 02/17/20 21 Active fluticasone (Flonase) 50 MCG/ACT nasal spray Administer 2 sprays into each nostril in the morning. Shake gently. Before first use, prime pump. After use, clean tip and replace cap. 16 g 2 02/26/19 24 Active Diclofenac Sodium (Voltaren) 1 % gel USE TID 100 g 2 05/15/19 24 Active ergocalciferol (Vitamin D2) 1.25 MG (22550 UT) capsule Take 1 capsule (1.25 mg) by mouth 1 (one) time per week. 4 capsule 3 02/11/20 24 025 Active atorvastatin (Lipitor) 10 MG tablet Take 1 tablet (10 mg) by mouth at bedtime. 90 tablet 1 06/11/19 25 Active hydroquinone 4 % cream APPLY TO THE AFFECTED AREA(S) TOPICALLY TWICE DAILY 28.35 g 3 08/12/19 25 Active Tirzepatide-We ight Management (Zepbound) 10 MG/0.5ML solution auto-injectorI ndications:Cla ss 2 obesity due to excess calories without serious comorbidity with body mass index (BMI) of 35.0 to 35.9 in adult Inject 0.5 mL (10 mg) under the skin every 7 (seven) days. 2 mL 2 09/12/19 25 Active levothyroxine (Synthroid, Levoxyl) 88 MCG tabletIndicati ons:Hypothyroi dism, unspecified type Take 1 tablet (88 mcg) by mouth before breakfast. 30 tablet 2 10/22/19 25 Active azithromycin (Zithromax) 250 MG tabletIndicati ons:Traveler's diarrhea Take 2 tablets (500 mg) by mouth Once per day for 3 days. 6 tablet 11/20/19 25 025 Active levothyroxine (Synthroid, Levoxyl) 88 MCG tabletIndicati ons:Hypothyroi dism, unspecified type Take 1 tablet (88 mcg) by mouth before breakfast. 30 tablet 09/12/19 25 025 Discontinued(Re order (will not trigger notification to Pharmacy)) Active Problems Problem Noted Date Diagnosed Date Dysuria 09/11/2024 Assessment & Plan (09/11/2024 9:33 AM EDT): Patient unable to provide urine today, she is now asymptomatic with partially treated LUTS, she is out of metronidazole. We have a lengthy discussion about taking medications as prescribed instead of taking it until symptoms resolved (therefore she had remaining doses of metronidazole gel). We discussed about the potential of resistant bacteria if not treated properly. I will prescribe metronidazole vaginal gel x 5 days to complete 7 days of treatment for potential BV. Advised to return to clinic immediately as needed symptoms, WIC schedule and information given to patient today Pap smear is up-to-date and normal by 2021 Cystitis with hematuria 08/03/2024 Assessment & Plan (08/03/2024 3:33 PM EDT): Will treat UTI clinically, Rx Bactrim x 5 days and will give fluconazole x 1 in case she develops to take as needed worsening vaginal discharge (rule out candidiasis). Follow-up urine culture and BV swab, will call back as needed abnormal results Advised to increase water intake and follow-up with me as needed Screening mammogram for breast cancer 03/26/2024 Assessment [...] PRN. Order XR and refer to PT. Obesity (BMI 30-39.9) 02/11/2024 Assessment & Plan (09/11/2024 9:31 AM EDT): Doing great, BMI is down to 31 from 36 8 months ago when she started on GLP's. Stressed the importance of continuing a low calorie diet and avoid soda and sugary beverage consumption, increase protein intake with meals (at least 1 portion of protein with each meal) to assist with satiety, increase dietary fiber Recommended at least 150 min/week of moderate intensity exercise. Continue Zepbound 10 mg and follow-up with me in 8 weeks Assessment & Plan (03/16/2024 10:41 AM EST): Patient is doing well on Zepbound and tolerates well. Increased Zepbound to 5mg and FU with me at next scheduled appointment. Assessment & Plan (02/13/2024 2:19 PM EST): She has been to a can line examiner in the past . I will prescribe [...] least 150 min/week of moderate intensity exercise. Petechial eruption 12/12/2023 Assessment & Plan (12/12/2023 [...] 1 year. Hypothyroidism 02/02/2022 Assessment & Plan (09/11/2024 9:31 AM EDT): Continue levothyroxine 88 mcg/day and adjust according to TSH. Advised to get blood drawn today I will call back as needed to adjust medication Assessment & Plan (06/10/2024 2:06 PM EDT): TSH to be checked, will continue levothyroxine 88 mcg/d and will adjust medications as needed after lab results Assessment & Plan (02/11/2024 10:27 AM EST): TSH is at goal, continue Levothyroxine 88 mcg. Check TSH in 6-8 months. Assessment & Plan (12/12/2023 10:59 AM EDT): Controlled, continue Levothyroxine 88 mcg. FU TSH in 6-8 months. Prediabetes 02/02/2022 Assessment & Plan (09/11/2024 9:31 AM EDT): Resolved, mostly related to weight gain. Will continue checking A1c once a year only as long as she keeps the weight down. Continue regular exercise, life style modifications, diet. Follow-up in 1 year Resolved Problems Problem Noted Date Diagnosed Date Resolved Date Vaginal discharge 08/03/2024 09/11/2024 Chalazion left lower eyelid 06/10/2024 09/11/2024 Class 2 obesity due to exces s calories without serious comorbidity with body mass index (BMI) of 35.0 to 35.9 in adult 03/26/2024 Assessment & Plan (06/10/2024 2:06 PM EDT): Significant improvement on Zepbound, she tolerates well, I will increase to 7.5 mg and follow-up with her in 6 to 8 weeks. We discussed strongly regarding importance of prioritize protein and fiber intake as well as hydration. We also discussed importance of mild to moderate exercise, also focusing on strength.Discussed re weight reduction options including exercise, life style modifications, diet. Recommended to decrease soda and sugary beverage consumption, increase protein intake with meals (at least 1 portion of protein with each meal) to assist with satiety, increase dietary fiber Recommended at least 150 min/week of moderate intensity exercise. I told him to wait 3-6 more months until BMI stabilizes to plan for abdominoplasty. Assessment & Plan (03/26/2024 10:40 AM EST): Pt is doing great on Zepbound, will start 5 mg/week next week and will FU in 2-3 months. Recommended to decrease soda and sugary beverage consumption, increase protein intake with meals (at least 1 portion of protein with each meal) to assist with satiety, increase dietary fiber. Recommended at least 150 min/week of moderate intensity exercise. Conjunctival lesion 03/16/2024 05/16/19 Assessment & Plan (06/10/2024 2:07 PM EDT): Recurrent, it seems to bother her at this time. Referred to eye and LASIK ophthalmology clinic. Assessment & Plan (03/26/2024 9:57 AM EST): Seen by Electronic Test Technician, and recommended warm compresses and continue artificial tears, no evidence of HSV lesion. Assessment & Plan (03/16/2024 10:40 AM EST): Most likely dry eye versus allergic conjunctivitis versus ocular herpes (less likely). Given history of acute oral HSV lesions, she will be seen in the eye clinic tomorrow. Use natural tears. Decreased sex drive 02/11/2024 09/12/19 Assessment & Plan (02/11/2024 10:29 AM EST): Pt seems to have a natural decline of sex drive over the years, with no other /s of perimenopause and she is comfortable with it. She will increase exercise and increase water intake and she continues with the weight loss. FU with me in 1 year or earlier PRN. Bacterial vaginitis 02/02/2022 09/12/19 Assessment & Plan (10/16/2023 6:13 AM EDT): [...] out, f/u with PCP if no improvement. Encounters Date Type Department Care Team Description 11/19/2024 9:00 AM EDT Office Visit [facility] [address] [place] [address] Colt Kelly MD Traveler's diarrhea (Primary Dx); Viral URI 11/19/2024 Travel 11/16/2024 Telephone [facility] [address] [place], [place] [phone] Caty Christopher MD Med Refill 10/29/2024 Telephone [facility] [address] [place] [phone] Caty Christopher MD telephone call; Durable Medical Equipment ([facility]: Zepbound) 10/21/2024 Refill [facility] [address] [place] [address] Caty Christopher MD Hypothyroidism, unspecified type 10/20/2024 Refill [facility] [address] [place] [address] Caty Christopher MD Hypothyroidism, unspecified type 10/15/2024 Telephone [facility] [address] [place] [address] Caty Christopher MD november recall 09/22/2024 Results Follow-Up [facility] [address] [place] [phone] Caty Christopher MD Lipid Panel with Reflex to Direct LDL, TSH with Reflex to Free T4, Hepatic Function Panel 09/11/2024 9:00 AM EDT Office Visit [facility] [address] [place] [phone] Caty Christopher MD Prediabetes (Primary Dx); Obesity (BMI 30-39.9); Dysuria; Hypothyroidism, unspecified type; Class 2 obesity due to excess calories without serious comorbidity with body mass index (BMI) of 35.0 to 35.9 in adult 09/11/2024 Travel 09/10/2024 Telephone [facility] [address] [place], [place] [phone] Caty Christopher MD Chart prep from Last 3 Months Immunizations Immunization Administration Dates Next Due Hep B, adult [...] (179 lb) 11/19/2024 9:02 AM EDT Height 165.1 cm (5' 5 ) 09/11/2024 8:57 AM EDT Body Mass Index 29.79 09/11/2024 8:57 AM EDT Plan of Treatment Upcoming Encounters Date Type Department Care Team (Late st Contact Info) Description 12/10/2024 9:00 AM EDT Telemedicine [facility] [address] [place] [address] Caty Christopher MD [address] [place] [address] 03/22/2025 9:00 AM EST Office Visit [facility] OPTOMET[facility] [address] [place] [address] Greg, Brenda, OD [address] [place] [address] Health Maintenance Due Date Last Done Comments HIV Screening 1980 Alcohol/Substance Use Screening 1992 HPV Vaccines (1 - 3-dose series) 01/20/1995 Hepatitis C Screening 01/20/1998 Mammogram 06/27/2023 06/26/2021 Family Planning (PISQ) 12/11/2024 12/12/2023 SDOH Screening 12/11/2024 12/12/2023 Depression Screening 09/11/2025 09/11/2024, 09/12/19 Diabetes: Hemoglobin A1C 09/11/2025 025, 10/15/2023, 11/01/2021, Additional history exists Disability Screening 09/11/2025 09/11/2024 Tobacco Screening 11/19/2025 11/19/2024 Cervical Cancer Screening 07/27/2026 HPV/Cotest 07/27/2026 07/27/2021, 07/27/2021 Pap Smear 07/27/2026 07/27/2021 Lipid Panel 09/14/2029 09/14/2024, 08/08/2023, 01/30/2023, Additional history exists DTaP/Tdap/Td Vaccines (3 - Td or Tdap) 10/22/2029 10/23/2019, 11/19/2015 Zoster Vaccines (1 of 2) 01/20/2030 RSV Patients and Patients Aged 60 years or older (1 - 1-dose 75+ series) 01/20/2055 Hepatitis B Vaccines Completed 09/12/2017, 05/13/2017, 04/09/2017 COVID-19 Vaccine Completed 11/26/2023, 07/2022, 11/20/2021, Additional history exists Influenza Vaccine Completed 10/21/2024, , 11/05/2022, Additional history exists HIB Vaccines Aged Out No longer eligi ble based on patient's age to complete this topic Hepatitis A Vaccines Aged Out No long er eligible based on patient's age to complete this topic IPV Vaccines Aged Out No longer eligi ble based on patient's age to complete this topic Meningococcal B Vaccine Aged Out No l onger eligible based on patient's age to complete this topic Meningococcal Vaccine Aged Out No bipin arleen eligible based on patient's age to complete this topic Pneumococcal Vaccine: Pediatrics (0 to 5 Years) and At-Risk Patients (6 to 49) Years Aged Out No longer eligible based on [...] 11/19/2024 9: 12 AM EDT Viral URI HEPATIC FUNCTION PANEL Routine 09/14/2024 9:39 AM EDT Class 2 obesity due to excess calories without serious comorbidity with body mass index (BMI) of 35.0 to 35.9 in adult TSH W/REFLEX TO FT4 Routine 09/14/2024 9 :39 AM EDT Acquired hypothyroidism LIPID PANEL WITH REFLEX TO DIRECT LDL Routine 09/14/2024 9:39 AM EDT Class 2 obesity due to excess calories without serious comorbidity with body mass index (BMI) of 35.0 to 35.9 in adult POCT GLUCOSE Routine 09/11/2024 9:16 AM EDT Prediabetes POCT GLYCATED HEMOGLOBIN, TOTAL Routine 09/11/2024 9:16 AM EDT Prediabetes ZZZ HISTORICAL HPV E6/E7 RFLX PEDRO 16 18/45 Routine 07/27/2021 10:13 AM EDT HM PAP/HPV Routine 07/27/2021 MAMMOGRAM GENERIC Routine 06/26/2021 8:1 5 AM EDT from Last 3 Months or Most Recently Relevant to Health Maintenance Results * Influenza A (ID NOW Rapid Molecular) (11/19/2024 9:20 AM EDT) Influenza A Negative Negative, Indeterminate [facility] Swab 11/19/2024 9:20 AM EDT us Colt Kelly MD POINT OF CARE TEST ENTER/EDIT OR DERABLES Final Result [facility] [address] [place] [phone] * Influenza B (ID NOW Rapid Molecular) (11/19/2024 9:19 AM EDT) Influenza B Negative Negative, Indeterminate [facility] Swab 11/19/2024 9:19 AM EDT Colt Kelly MD POINT OF CARE TEST ENTER/EDIT OR DERABLES Final Result Performing Organization Address [facility]/ZIP Co de Phone Number [facility] [address] [place], [place] [phone] * POCT Rapid COVID Ag (11/19/2024 9:13 AM EDT) [facility] Rapid COVID Ag Negative Swab 11/19/2024 9:13 AM EDT Colt Kelly MD POINT OF CARE TEST ENTER/EDIT OR DERABLES Final Result * POCT rapid strep A manually resulted (11/19/2024 9:12 AM EDT) [facility] Rapid Strep A Screen Negative Negative, None Detected Swab 11/19/2024 9:12 AM EDT Colt Kelly MD POINT OF CARE TEST ENTER/EDIT OR DERABLES Final Result * TSH with Reflex to Free T4 (09/14/2024 9:39 AM EDT) [facility] TSH reflex Free T4 1.23 0.32 - 4.0 uIU/mL [facility] Blood 09/14/2024 9:39 AM EDT 09/14/2024 11:31 AM EDT Caty Christopher MD LAB BLOOD ORDERABLES Fin al Result Performing Organization Address City/[facility]/ZIP Co de Phone Number [facility] [address] [place] [address] [phone] * (ABNORMAL) Lipid Panel with Reflex to Direct LDL (09/14/2024 9:39 AM EDT) [facility] Triglycerides 105 <150 mg/dL [facility] Comment:Desirable Triglyceri de: less than 150 mg/dLBorderline High Triglyceride 150-199 mg/dLHigh Triglyceride: 200-499 mg/dLVery High Triglyceride: greater than or equal to 5OO mg/dL Cholesterol 146 <200 mg/dL [facility] Comment:Desirable Cholestero l: less than 200 mg/dLBorderline High Cholesterol: 200-239 mg/dLHigh Cholesterol: greater than 239 mg/dL LDL Cholesterol Calculated 86 <100 mg/dL [facility] Comment:Desirable LDL: less than 100 mg/dLNear Optimal/Above Optimal LDL: 110- 129 mg/dLBorderline High LDL: 130-159 mg/dLHigh LDL: 160-189 mg/dLVery High LDL: greater than or equal to 190 mg/dL HDL Cholesterol 39(L) >40 mg/dL [facility] Comment:Desirable HDL: great er than 40 mg/dL Note: This HDL assay may give artificially low results in patients with liver disease. Blood 09/14/2024 9:39 AM EDT 09/14/2024 11:31 AM EDT us Caty Christopher MD LAB BLOOD ORDERABLES Fin al Result [facility] [address] [place] [phone] * (ABNORMAL) Hepatic Function Panel (09/14/2024 9:39 AM EDT) Bilirubin, Total 0.3 0.0 - 1.0 mg/dL [facility] Bilirubin, Direct 0.1 0.0 - 0.5 mg/dL [facility] Aspartate Amino Transferase 36(H) 5 - 31 U/L [facility] Alanine Aminotransferase 13 0 - 31 U/L [facility] Total Protein 7.3 6.5 - 8.0 g/dL [facility] Albumin Level 4.2 3.5 - 5.0 g/dL [facility] Alkaline Phosphatase 91 39 - 117 U/L [facility] Blood Venous blood specimen / Unknown 09/14/2024 9:39 AM EDT 09/14/2024 11:31 AM EDT Caty Christopher MD LAB BLOOD ORDERABLES Fin al Result [facility] [address] [place] [phone] * POCT HGB A1C (09/11/2024 9:16 AM EDT) Pathologist [facility] Hemoglobin A1C 4.9 4.0 - 5.7 % Blood 09/11/2024 9:16 AM EDT Result [facility] Caty Christopher MD POINT OF CARE TEST ENTER /EDIT ORDERABLES Final Result * POCT Glucose (09/11/2024 9:16 AM EDT) Pathologist [facility] Glucose Blood, POC 107 60 - 200 mg/dL QC Media Lot # [id number] Lot# Expiration Date [id number] Blood Capillary blood specimen / Unknown 09/11/2024 9:16 AM EDT Result [facility] Ctay Christopher MD POINT OF CARE TEST ENTER /EDIT ORDERABLES Final Result * HPV E6/E7 RFLX PEDRO 16 18/45 (07/27/2021 10:13 AM EDT) Pathologist [facility] HPV 16 RNA [facility] HPV 18/45 RNA [facility] HPV E6 E7 ADD [facility] HPV mRNA E6/E7 rflx Not Detected Not Detected [facility] Comment: Methodology: Employment Interviewer-Mediated Amplification This assay detects E6/E7 viral messenger RNA (mRNA) from 14 high-risk HPV types (16,18,31,33,35,39,45,51,52,56,58,59,66,68). Cervical sources are required for HPV testing. If a vaginal source from a patient who has had a total hysterectomy with removal of cervix was submitted, please contact the testing laboratory for alternative testing options. For additional information, please refer to [email or web address]/faq/GSZ632k7 (This link if provided for information/ educational purposes only.) THIS TEST WAS PERFORMED AT: [facility] [address] [place] [address] [address],[place] [phone] DEJA ERIC MD 07/27/2021 10:1 3 AM EDT us Keiko Iraheta HISTORICAL/NON ORDERABLE LABS Fi nal Result [facility] [address] * Hm Pap Smear (07/27/2021) Historical Provider HEALTH MAINTENANCE Final Result * Mammography [...] Most Recently Relevant to Health Maintenance Insurance 3 Care Teams Project Leader Relationship Specialty Start Date End Date Caty Christopher MD [address] [place] [phone] PCP - General Internal Medicine 09/30/23
--- OUTSIDE RECORDS SUMMARY | 2024-11-19 11:01 | XMS_ITS | Encounter Summary ---
Author Organization [employer] Address [address] [facility] 7 [place] [address] Care Team Providers Care Transmission Builder Name Role Phone Martha Cruz MD Primary Care Pro vider Caty Christopher MD Primary Care Provider + Encounter Details Date Type Department Care Team (Late st Contact Info) Description 11/09/2022 Orders Only [facility] [address] [place] [address] [phone] ProviderAlvaro MD Social History Tobacco Use Types [...] Info) Description 12/10/2024 9:00 AM EDT Telemedicine [facility] [address] [place] [address] [phone] Caty Christopher MD [address] [place] [address] [phone] 03/22/2025 9:00 AM EST Office Visit [facility] OPTOMETRY [address] [place] [address] Brenda Garza, OD [address] [place] [address] documented as of this encounter Procedures Procedure Name Priority Date/Time Associated Diagnosis Comments HM PAP/HPV Routine 07/27/2021 documented in this encounter Results * Hm Pap Smear (07/27/2021) Historical Provider HEALTH MAINTENANCE Final Result documented in this encounter Visit Diagnoses Not on filedocumented in this encounter Care Teams Transmission Builder Relationship Specialty Start Date End Date Martha Cruz MD [address] [place] [phone] PCP - General Internal Medicine 10/02/22 09/29/23 Caty Christopher MD [address] [place] [address] PCP - General Internal Medicine 09/30/23 documented as of this encounter
--- OUTSIDE RECORDS SUMMARY | 2024-11-19 11:01 | XMS_ITS | Encounter Summary ---
Author Organization [employer] Address [address] [facility] 7 [place] [address] Care Team Providers Care District Operations Manager Name Role Phone Caty Christopher MD Primary Care Provider + Reason for Visit * Reason Onset Date Comments Med Refill 11/16/2024 Encounter Details Date Type Department Care Team ([facility] st Contact Info) Description 11/16/2024 Telephone [facility] [address] [place], [place] [phone] Caty Christopher MD [address] [place], [place] [phone] Med Refill Social History Tobacco Use Types Packs/Day Years [...] AM EDT documented as of this encounter Miscellaneous Notes * Telephone Encounter - Lesley Cates - 11/19/2024 10:43 AM EDT Pt walked in requesting update on zepbound medication. On whether or not pcp will try again for medication or change her medication. * Telephone Encounter - Lesley Cates - 11/16/2024 9:41 AM EDT Pt walked in stating she's been out of zepbound for 2 weeks and now and received letter from insurance that they will cover 1 refill. Pt needs pcp to send prescription for it. Pt also would like to know what pcp recommends whether to change medication to one insurance covers or change insurance or if pcp is willing to keep doing Prior Auths for meds if insurance covers it like that. documented in this encounter Plan of Treatment Upcoming Encounters Date Type Department Care Team (Late st Contact Info) Description 12/10/2024 9:00 AM EDT Telemedicine [facility] [address] [place] [address] [phone] Caty Christopher MD [address] [place], [place] [phone] 03/22/2025 9:00 AM EST Office Visit [facility] [address] [place], [place] [phone] Greg, Brenda, OD [address] [place], [place] [phone] documented as of this encounter Visit Diagnoses Not on filedocumented in this encounter Additional Health Concerns Assessment Noted Time PHQ-9 Depression Total Score: 3 09/12/19 25 9:34 AM EDT documented as of this encounter Care Teams District Operations Manager Relationship Specialty Start Date End Date Caty Christopher MD [address] [place], [place] [phone] PCP - General Internal Medicine 09/30/23 documented as of this encounter
--- OUTSIDE RECORDS SUMMARY | 2024-11-19 11:01 | XMS_ITS | Encounter Summary ---
Author Organization [employer] Address [address] [facility] [address] [place] [address] Care Team Providers Care Concierge Manager Name Role Phone Caty Christopher MD Primary Care Provider + Encounter Details Date Type Department Care Team (Latest Contact Info) Description 11/19/2024 Travel Social History Tobacco Use Types Packs/Day Years [...] Info) Description 12/10/2024 9:00 AM EDT Telemedicine [facility] [address] [place] [address] Caty Christopher MD [address] [place] [phone] 03/22/2025 9:00 AM EST Office Visit [facility] OPT[facility] [address] [place] [address] Greg, Brenda, OD [address] [place] [address] documented as of this encounter Visit Diagnoses Not on filedocumented in this encounter Additional Health Concerns Assessment Noted Time PHQ-9 Depression Total Score: 3 09/12/19 25 9:34 AM EDT documented as of this encounter Care Teams Concierge Manager Relationship Specialty Start Date End Date Caty Christopher MD [address] [place] [address] PCP - General Internal Medicine 09/30/23 documented as of this encounter
--- OUTSIDE RECORDS SUMMARY | 2024-11-19 11:01 | XMS_ITS | Encounter Summary ---
Author Organization [employer] Address 75 [facility] 7 [place] [address] Care Team Providers Care Pipeline Controller Name Role Phone Martha Cruz MD Primary Care Pro vider Caty Christopher MD Primary Care Provider + Reason for Visit * Reason Comments Med Refill Encounter Details Date Type Department Care Team (Late st Contact Info) Description 05/09/2023 Refill [facility] MEDICINE [address] [place], [place] [phone] Name, MD Oracio [address] [place], [place] [phone] Social History Tobacco Use Types Packs/Day Years [...] Info) Description 12/10/2024 9:00 AM EDT Telemedicine [facility] MEDICINE [address] [place], [place] [phone] Caty Christopher MD [address] [place], [place] [phone] 03/22/2025 9:00 AM EST Office Visit [facility] OPTOMETRY [address] [place], [place] [phone] Brenda Garza, OD 230 [place], [place] [phone] documented as of this encounter Visit Diagnoses Not on filedocumented in this encounter Care Teams Pipeline Controller Relationship Specialty Start Date End Date Martha Cruz MD [address] [place], [place] [phone] PCP - General Internal Medicine 10/02/22 09/29/23 Caty Christopher MD [address] [place] [address] [phone] PCP - General Internal Medicine 09/30/23 documented as of this encounter
--- OUTSIDE RECORDS SUMMARY | 2024-11-19 11:01 | XMS_ITS | Encounter Summary ---
Author Organization [employer] Address 75 [facility] 7 [place] [address] Care Team Providers Care Final Inspector Balance Wheel Name Role Phone Aydin Mcallister MD Primary Care Provider Unava ilable Martha Cruz MD Primary Care Pro vider Caty Christopher MD Primary Care Provider + Encounter Details Date Type Department Care Team (Latest Contact Info) Description 04/24/2021 Abstract [facility] CONVERSIONS Dental, Provider, DDS Social History Tobacco [...] Encounters Date Type Department Care Team ( st Contact Info) Description 12/10/2024 9:00 AM EDT Telemedicine [facility] MEDICINE [address] [place], [place] [phone] Caty Christopher MD [address] [employer], [place] [phone] 03/22/2025 9:00 AM EST Office Visit [facility] OPTOMETRY [address] [place], [place] [phone] Brenda Garza OD 230 [place] [address] documented as of this encounter Visit Diagnoses Not on filedocumented in this encounter Care Teams Final Inspector Balance Wheel Relationship Specialty Start Date End Date Aydin Mcallister MD PCP - General Family Medicine 12/22/20 10/01/22 Martha Cruz MD 230 [place] [address] PCP - General Internal Medicine 10/02/22 09/29/23 Caty Christopher MD [address] [place] [phone] PCP - General Internal Medicine 09/30/23 documented as of this encounter
--- OUTSIDE RECORDS SUMMARY | 2024-11-19 11:01 | XMS_ITS | Encounter Summary ---
Author Organization [employer] Address 75 [facility] 7 [place] [address] Care Team Providers Care Direct Marketing Intern Name Role Phone Caty Christopher MD Primary Care Provider + Reason for Visit * Reason Comments Med Refill Encounter Details Date Type Department Care Team ([facility] st Contact Info) Description 10/20/2024 Refill [facility] MEDICINE 230 [place], [place] [phone] Caty Christopher MD 230 [place], [place] [phone] Hypothyroidism, unspecified type Social History Tobacco Use Types Packs/Day Years [...] your housing situation today? I have isaac rocky 12/12/[address] you li [...] Info) Description 12/10/2024 9:00 AM EDT Telemedicine [facility] MEDICINE [address] [place] [address] Caty Christopher MD 230 [place] [address] 03/22/2025 9:00 AM EST Office Visit [facility] OPTOMETRY [address] [place], [place] [phone] Greg, Brenda, OD 230 [place] [address] documented as of this encounter Visit Diagnoses Diagnosis Hypothyroidism, unspecified type documented in this encounter Additional Health Concerns Assessment Noted Time PHQ-9 Depression Total Score: 3 09/12/19 25 9:34 AM EDT documented as of this encounter Care Teams Direct Marketing Intern Relationship Specialty Start Date End Date Caty Christopher MD 230 [place] [address] PCP - General Internal Medicine 09/30/23 documented as of this encounter
== END 2024-11-19 09:52 | disposition home or self-care (01) ==
LOC: HO.HHCL 09:51
PROVIDERS: PCP Internal Medicine; Visit Provider Family Medicine
DX: Z13.89 Encounter for screening for other disorder (principal)
CPT/HCPCS: 36415; 86709

== ENCOUNTER 2024-12-09 15:05 | Outpatient (REF) | payer OTHER, SELFPAY ==
--- OUTSIDE RECORDS SUMMARY | 2024-12-09 21:22 | XMS_ITS | Clinical Summary ---
Author Organization [facility] Address [address] [place] [phone] Phone Care Team Providers Care Wood Carving Machine Operator Name Role Phone Pcp, Unknown Primary Care [...] YEARS) 01/20/1998 PAP SMEAR 01/20/2001 MAMMOGRAM 2020 INFLUENZA VACCINE (#1) 2024 COVID-19 VACCINE (2024-2 6 season) 2024 HEPATITIS A VACCINES Aged Out No long [...] topic Medical Devices Not on file Insurance [employer] LIMITED LIMITED HEALTH LIMITED LIMITED HEALTH LIMITED [facility] Care Teams Wood Carving Machine Operator Relationship Specialty Start Date End Date Pcp, Unknown PCP - General 01/18/21 Additional Source Comments The information contained in this document represents components of the legal health record. It is not the complete legal health record.[facility]
--- OUTSIDE RECORDS SUMMARY | 2024-12-09 21:22 | XMS_ITS | Encounter Summary ---
Author Organization [employer] Address 75 [facility] 7 [place] [address] Care Team Providers Care Furnace Repairer Name Role Phone Caty Christopher MD Primary Care Provider + Reason for Visit * Reason Onset Date Comments CHART PREP 12/09/2024 Encounter Details Date Type Department Care Team ([facility] st Contact Info) Description 12/09/2024 Telephone [facility] MEDICINE 230 [place], [place] [phone] Caty Christopher MD 230 [place], [place] [phone] CHART PREP Social History Tobacco Use Types Packs/Day Years [...] encounter Miscellaneous Notes * Telephone Encounter - Lucia Alexis [place] - 12/09/2024 1:27 PM EDT Chart Prep Labs: not done Images: done Referrals: complete Vaccines due: HPV Screenings: mammogram and PISQ Overdue care gaps: SBIRT and SDOH documented in this encounter Plan of Treatment Upcoming Encounters Date Type Department Care Team (Late st Contact Info) Description 12/10/2024 9:00 AM EDT Telemedicine [facility] MEDICINE 230 [place] [address] Caty Christopher MD 230 [place] [address] 03/22/2025 9:00 AM EST Office Visit [facility] OPTOMETRY [address] [place] [address] Brenda Garza, OD 230 [place] [address] documented as of this encounter Visit Diagnoses Not on filedocumented in this encounter Additional Health Concerns Assessment Noted Time PHQ-9 Depression Total Score: 3 09/12/19 25 9:34 AM EDT documented as of this encounter Care Teams Furnace Repairer Relationship Specialty Start Date End Date Caty Christopher MD [address] [place] [phone] PCP - General Internal Medicine 09/30/23 documented as of this encounter
--- OUTSIDE RECORDS SUMMARY | 2024-12-09 21:22 | XMS_ITS | Encounter Summary ---
Author Organization [employer] Address 75 [facility] 7 [place] [address] Care Team Providers Care Chemical Engineering Intern Name Role Phone Martha Cruz MD Primary Care Pro vider Caty Christopher MD Primary Care Provider + Reason for Visit * Reason Comments Med Refill Encounter Details Date Type Department Care Team (Late Contact Info) Description 05/09/2023 Refill [facility] MEDICINE 230 [place], [place] [phone] Name, MD Oracio 230 [place], [place] [phone] Social History Tobacco Use Types Packs/Day Years [...] Info) Description 12/10/2024 9:00 AM EDT Telemedicine [facility] MEDICINE 230 [place], [place] [phone] Caty Christopher MD 230 [place], [place] [phone] 03/22/2025 9:00 AM EST Office Visit [facility] OPTOMETRY [address] [place], [place] [phone] Brenda Garza, OD 230 [place], [place] [phone] documented as of this encounter Visit Diagnoses Not on filedocumented in this encounter Care Teams Chemical Engineering Intern Relationship Specialty Start Date End Date Martha Cruz MD 230 [place], [place] [phone] PCP - General Internal Medicine 10/02/22 09/29/23 Caty Christopher MD [address] [place] [address] [phone] PCP - General Internal Medicine 09/30/23 documented as of this encounter
--- OUTSIDE RECORDS SUMMARY | 2024-12-09 21:22 | XMS_ITS | Encounter Summary ---
Author Organization [employer] Address 75 [facility] 7 [place] [address] Care Team Providers Care Plastic Sheets Supervisor Name Role Phone Aydin Mcallister MD Primary Care Provider Unava ilable Martha Cruz MD Primary Care Pro vider Caty Christopher MD Primary Care Provider + Encounter Details Date Type Department Care Team (Latest Contact Info) Description 04/24/2021 Abstract [facility] CONVERSIONS Dental, Provider, DDS Social History [...] Info) Description 12/10/2024 9:00 AM EDT Telemedicine [facility] MEDICINE 230 [place], [place] [phone] Caty Christopher MD 230 [place], [place] [phone] 03/22/2025 9:00 AM EST Office Visit [facility] OPTOMETRY [address] [place], [place] [phone] Brenda Garza OD 230 [place] [address] documented as of this encounter Visit Diagnoses Not on filedocumented in this encounter Care Teams Plastic Sheets Supervisor Relationship Specialty Start Date End Date Aydin Mcallister MD PCP - General Family Medicine 12/22/20 10/01/22 Martha Cruz MD 230 [place] [address] PCP - General Internal Medicine 10/02/22 09/29/23 Caty Christopher MD [address] [place] [phone] PCP - General Internal Medicine 09/30/23 documented as of this encounter
--- OUTSIDE RECORDS SUMMARY | 2024-12-09 21:22 | XMS_ITS | Clinical Summary ---
Author Organization [employer] Address 75 [facility] 7 [place] [address] Care Team Providers Care Pressure Supervisor Name Role Phone Caty Christopher MD Primary Care Provider + Allergies No known active allergies Medications acetaminophen (Tylenol 8 Hour) 650 MG ER tablet Take 1 tablet by mouth in the morning and 1 tablet at noon and 1 tablet in the evening. 1 Active cyanocobalamin (Vitamin B-12) 1000 MCG tablet Take 1 tablet by mouth at bed time. 1 Active fluticasone (Flonase) 50 MCG/ACT nasal spray Administer 2 sprays into each nostril in the morning. Shake gently. Before first use, prime pump. After use, clean tip and replace cap. 16 g 2 4 Active Diclofenac Sodium (Voltaren) 1 % gel USE TID 100 g 2 4 Active ergocalciferol (Vitamin D2) 1.25 MG (93805 UT) capsule Take 1 capsule (1.25 mg) by mouth 1 (one) time per week. 4 capsule 3 4 02/11/20 25 Active atorvastatin (Lipitor) 10 MG tablet Take 1 tablet (10 mg) by mouth at bedtime. 90 tablet 1 5 Active hydroquinone 4 % cream APPLY TO THE AFFECTED AREA(S) TOPICALLY TWICE DAILY 28.35 g 3 5 Active Tirzepatide-Weig ht Management (Zepbound) 10 MG/0.5ML solution auto-injectorInd ications:Class 2 obesity due to excess calories without serious comorbidity with body mass index (BMI) of 35.0 to 35.9 in adult Inject 0.5 mL (10 mg) under the skin every 7 (seven) days. 2 mL 2 5 Active levothyroxine (Synthroid, Levoxyl) 88 MCG tabletIndication s:Hypothyroidism , unspecified type Take 1 tablet (88 mcg) by mouth before breakfast. 30 tablet 2 5 Active azithromycin (Zithromax) 250 MG tabletIndication s:Traveler's diarrhea Take 2 tablets (500 mg) by mouth Once per day for 3 days. 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 I will prescribe [...] Plan (03/26/2024 9:57 AM EST): Seen by Inspector Weights And Measures, and recommended warm compresses and continue artificial [...] Encounters Date Type Department Care Team Description 12/09/2024 Telephone [facility] MEDICINE [address] [place] [phone] Caty Christopher MD CHART PREP 11/23/2024 Refill [facility] MEDICINE [address] [place] [phone] Caty Christopher MD Class 2 obesity due to excess calories without serious comorbidity with body mass index (BMI) of 35.0 to 35.9 in adult 11/19/2024 9:00 AM EDT Office Visit [facility] WALK-IN CENTER [address] [place] [address] [phone] Colt Kelly MD Traveler's diarrhea (Primary Dx); Viral URI 11/19/2024 Travel 11/16/2024 Telephone [facility] MEDICINE [address] [place] [address] [phone] Caty Christopher MD Med Refill 10/29/2024 Telephone [facility] MEDICINE [address] [place] [phone] Caty Christopher MD telephone call; Durable Medical Equipment ([employer]: Zepbound) 10/21/2024 Refill [facility] MEDICINE 230 [place] [address] Caty Christopher MD Hypothyroidism, unspecified type 10/20/[address] [address] Caty Christopher MD Hypothyroidism, unspecified type 10/15/[address] [phone] Caty Christopher MD november recall 09/22/2024 Results Follow-Up [address] [phone] Caty Christopher MD Lipid Panel with Reflex to Direct LDL, TSH with Reflex to Free T4, Hepatic Function Panel 09/11/2024 9:00 AM EDT Office Visit [address] [phone] Caty Christopher MD Prediabetes (Primary Dx); Obesity (BMI 30-39.9); Dysuria; Hypothyroidism, unspecified type; Class 2 obesity due to excess calories without serious comorbidity with body mass index (BMI) of 35.0 to 35.9 in adult 09/11/2024 Travel 09/10/[address] [facility] [address] [place] [address] Caty Christopher MD Chart prep from Last [...] the past 12 months, has t he [employer], gas, oil or water company threatened to [...] Info) Description 12/10/2024 9:00 AM EDT Telemedicine [facility] MEDICINE [address] [place] [address] Caty Christopher MD 230 [place] [address] 03/22/2025 9:00 AM EST Office Visit [facility] OPTOMETRY [address] [place], [place] [phone] Brenda Garza, OD 230 [place] [address] Health Maintenance Due Date Last Done Comments [...] AM EDT) Influenza A Negative Negative, Indeterminate [facility] Swab 11/19/2024 9:20 AM EDT us Colt Kelly MD POINT OF CARE TEST ENTER/EDIT OR DERABLES Final Result [facility] [address] [place] [address] [phone] * Influenza B (ID NOW Rapid Molecular) (11/19/2024 9:19 AM EDT) [facility] Influenza B Negative Negative, Indeterminate [facility] Swab 11/19/2024 9:19 AM EDT Colt Kelly MD POINT OF CARE TEST ENTER/EDIT OR DERABLES Final Result Performing Organization Address [facility]/ZIP Co de Phone Number [facility] [address] [place] [phone] * POCT Rapid COVID Ag (11/19/2024 9:13 AM EDT) [facility] Rapid COVID Ag Negative Swab 11/19/2024 9:13 AM EDT Result [facility] Colt Kelly MD POINT OF CARE TEST ENTER/EDIT OR DERABLES Final Result * POCT rapid strep A manually resulted (11/19/2024 9:12 AM EDT) [facility] Rapid Strep A Screen Negative Negative, None Detected Swab 11/19/2024 9:12 AM EDT Colt Kelly MD POINT OF CARE TEST ENTER/EDIT OR DERABLES Final Result * TSH with Reflex to Free T4 (09/14/2024 9:39 AM EDT) [facility] TSH reflex Free T4 1.23 0.32 - 4.0 uIU/mL [facility] Blood 09/14/2024 9:39 AM EDT 09/14/2024 11:31 AM EDT Caty Christopher MD LAB BLOOD ORDERABLES Fin al Result Performing Organization Address [facility]/ZIP Co de Phone Number [facility] [address] [place] [phone] * (ABNORMAL) Lipid Panel with Reflex to Direct LDL (09/14/2024 9:39 AM EDT) Triglycerides 105 <150 mg/dL [facility] Comment:Desirable Triglyceri de: less than 150 mg/dLBorderline High Triglyceride 150-199 mg/dLHigh Triglyceride: 200-499 mg/dLVery High Triglyceride: greater than or equal to 5OO mg/dL Cholesterol 146 <200 mg/dL [facility] Comment:Desirable Cholestero l: less than 200 mg/dLBorderline High Cholesterol: 200-239 mg/dLHigh Cholesterol: greater than 239 mg/dL LDL Cholesterol Calculated 86 <100 mg/dL [facility] Comment:Desirable LDL: less than 100 mg/dLNear Optimal/Above Optimal LDL: 110- 129 mg/dLBorderline High LDL: 130-159 mg/dLHigh LDL: 160-189 mg/dLVery High LDL: greater than or equal to 190 mg/dL HDL Cholesterol 39(L) >40 mg/dL [facility] Comment:Desirable HDL: great er than 40 mg/dL Note: This HDL assay may give artificially low results in patients with liver disease. Blood 09/14/2024 9:39 AM EDT 09/14/2024 11:31 AM EDT us Caty Christopher MD LAB BLOOD ORDERABLES Fin al Result [facility] [address] [place] [phone] * (ABNORMAL) Hepatic Function Panel (09/14/2024 9:39 AM EDT) Bilirubin, Total 0.3 0.0 - 1.0 mg/dL [facility] Bilirubin, Direct 0.1 0.0 - 0.5 mg/dL [facility] Aspartate Amino Transferase 36(H) 5 - 31 U/L [facility] Alanine Aminotransferase 13 0 - 31 U/L [facility] Total Protein 7.3 6.5 - 8.0 g/dL [facility] Albumin Level 4.2 3.5 - 5.0 g/dL [facility] Alkaline Phosphatase 91 39 - 117 U/L [facility] Blood Venous blood specimen / Unknown 09/14/2024 9:39 AM EDT 09/14/2024 11:31 AM EDT Caty Christopher MD LAB BLOOD ORDERABLES Fin al Result [facility] [address] [place] [phone] * POCT HGB A1C (09/11/2024 9:16 AM EDT) Hemoglobin A1C 4.9 4.0 - 5.7 % Blood 09/11/2024 9:16 AM EDT Caty Christopher MD POINT OF CARE TEST ENTER /EDIT ORDERABLES Final Result * POCT Glucose (09/11/2024 9:16 AM EDT) Glucose Blood, POC 107 60 - 200 mg/dL QC Media Lot # [id number] Lot# Expiration Date [id number] Blood Capillary blood specimen / Unknown 09/11/2024 9:16 AM EDT Caty Christopher MD POINT OF CARE TEST ENTER /EDIT ORDERABLES Final Result * HPV E6/E7 RFLX PEDRO 16 18/45 (07/27/2021 10:13 AM EDT) HPV 16 RNA [facility] HPV 18/45 RNA [facility] HPV E6 E7 ADD [facility] HPV mRNA E6/E7 rflx Not Detected Not Detected [facility] Comment: Methodology: Meter Technician-Mediated Amplification This assay detects E6/E7 viral messenger RNA (mRNA) from 14 high-risk HPV types (16,18,31,33,35,39,45,51,52,56,58,59,66,68). Cervical sources are required for HPV testing. If a vaginal source from a patient who has had a total hysterectomy with removal of cervix was submitted, please contact the testing laboratory for alternative testing options. For additional information, please refer to http://education.Class[employer]/faq/QQD151q9 (This link if provided for information/ educational purposes only.) THIS TEST WAS PERFORMED AT: [facility] [address] [place] [address] [address]LO[address],[place] [address] DEJA ERIC MD 07/27/2021 10:1 3 AM EDT Keiko Iraheta HISTORICAL/NON ORDERABLE LABS Fi nal Result Performing Organization Address City/State/[facility] Co de Phone Number [facility] [address] * Hm Pap Smear (07/27/2021) Historical Provider HEALTH MAINTENANCE Final Result * Mammography Report 1 (06/26/2021 8:15 AM EDT) Anatomical Region Laterality Modality Breast Bilateral Mammography 06/26/2021 8:15 AM EDT Narrative 06/27/2021 8:07 AM EDT Refer to the Notes tab for result details [facility] Procedure: Mammography Report 1 Procedure Note Provider, MD Alvaro - 05/13/2022 Refer to the Notes tab for result details [facility] Procedure: Mammography Report 1 Aydin Mcallister MD IMG BI PROCEDURES Final Resu lt from Last 3 Months or Most Recently Relevant to Health Maintenance Insurance [facility] 3 Care Teams Pressure Supervisor Relationship Specialty Start Date End Date Caty Christopher MD [address] [place] [phone] PCP - General Internal Medicine 09/30/23
--- OUTSIDE RECORDS SUMMARY | 2024-12-09 21:22 | XMS_ITS | Encounter Summary ---
Author Organization [employer] Address 75 [facility] 7 [place] [address] Care Team Providers Care Ambulance Operations Supervisor Name Role Phone Caty Christopher MD Primary Care Provider + Reason for Visit * Reason Comments Med Refill Encounter Details Date Type Department Care Team ([facility] st Contact Info) Description 11/23/2024 Refill [facility] MEDICINE 230 [place], [place] [phone] Caty Christopher MD 230 [place], [place] [phone] Class 2 obesity due to excess calories without serious comorbidity with body mass index (BMI) of 35.0 to 35.9 in adult Social History Tobacco Use Types Packs/Day Years [...] Info) Description 12/10/2024 9:00 AM EDT Telemedicine [facility] MEDICINE [address] [place] [address] Caty Christopher MD [address] [place] [address] 03/22/2025 9:00 AM EST Office Visit [facility] OPTOMETRY [address] [place] [address] Brenda Garza, OD 230 [place] [address] documented as of this encounter Visit Diagnoses Diagnosis Class 2 obesity due to excess calories without serious comorbidity with body mass index (BMI) of 35.0 to 35.9 in adult documented in this encounter Additional Health Concerns Assessment Noted Time PHQ-9 Depression Total Score: 3 09/12/19 25 9:34 AM EDT documented as of this encounter Care Teams Ambulance Operations Supervisor Relationship Specialty Start Date End Date Caty Christopher MD [address] [place] [phone] PCP - General Internal Medicine 09/30/23 documented as of this encounter
--- OUTSIDE RECORDS SUMMARY | 2024-12-09 21:22 | XMS_ITS | Encounter Summary ---
Author Organization [employer] Address 75 [facility] 7 [place] [address] Care Team Providers Care Lawn Care Specialist Name Role Phone Martha Cruz MD Primary Care Pro vider Caty Christopher MD Primary Care Provider + Encounter Details Date Type Department Care Team (Late st Contact Info) Description 11/09/2022 Orders Only [facility] MEDICINE [address] [place] [address] [phone] ProviderAlvaro MD Social History Tobacco Use Types [...] Description 12/10/2024 9:00 AM EDT Telemedicine [facility] MEDICINE [address] [place] [address] [phone] Caty Christopher MD [address] [place] [address] [phone] 03/22/2025 9:00 AM EST Office Visit [facility] OPTOMETRY [address] [place] [address] Brenda Garza, OD 230 [place] [address] documented as of this encounter Procedures Procedure Name Priority Date/Time Associated Diagnosis Comments HM PAP/HPV Routine 07/27/2021 documented in this encounter Results * Hm Pap Smear (07/27/2021) Historical Provider HEALTH MAINTENANCE Final Result documented in this encounter Visit Diagnoses Not on filedocumented in this encounter Care Teams Lawn Care Specialist Relationship Specialty Start Date End Date Martha Cruz MD 230 [place] [address] PCP - General Internal Medicine 10/02/22 09/29/23 Caty Christopher MD 230 [place] [address] PCP - General Internal Medicine 09/30/23 documented as of this encounter
--- OUTSIDE RECORDS SUMMARY | 2024-12-09 21:22 | XMS_ITS | Encounter Summary ---
Author Organization [employer] Address 75 [facility] 7 [place] [address] Care Team Providers Care Carbon Setter Name Role Phone aCty Christopher MD Primary Care Provider + Reason for Visit * Reason Comments Med Refill Encounter Details Date Type Department Care Team ([facility] st Contact Info) Description 10/20/[address] [facility] MED[facility]INE [address] [place], [place] [phone] Caty Christopher MD [address] [place], [place] [phone] Hypothyroidism, unspecified type Social History Tobacco Use [...] Info) Description 12/10/2024 9:[address] [facility] [address] [place] [address] Caty Christopher MD [address] [place] [address] 03/22/2025 9:00 AM EST Office Visit [facility] OPTOMETRY [address] [place], [place] [phone] Greg, Brenda, OD [address] [place] [address] documented as of this encounter Visit Diagnoses Diagnosis Hypothyroidism, unspecified type documented in this encounter Additional Health Concerns Assessment Noted Time PHQ-9 Depression Total Score: 3 09/12/19 25 9:34 AM EDT documented as of this encounter Care Teams Carbon Setter Relationship Specialty Start Date End Date Caty Christopher MD [address] [place] [address] PCP - General Internal Medicine 09/30/23 documented as of this encounter
== END 2024-12-09 15:06 | disposition home or self-care (01) ==
LOC: HO.HHCL 15:05
PROVIDERS: PCP Internal Medicine; Visit Provider Family Medicine
DX: Z13.89 Encounter for screening for other disorder (principal)

== ENCOUNTER 2024-12-15 14:57 | Outpatient (REF) | payer OTHER, SELFPAY ==
--- OUTSIDE RECORDS SUMMARY | 2024-12-10 09:00 | XMS_ITS | Encounter Summary ---
Author Organization [employer] Address 75 [facility] 7 [place] [address] Care Team Providers Care Bottle Filler Name Role Phone Caty Christopher MD Primary Care Provider + Encounter Details Date Type Department Care Team ([facility] st Contact Info) Description 12/10/2024 9:00 AM EDT Telemedicine [facility] MEDICINE [address] [place], [place] [phone] Caty Christopher MD [address] [place], [place] [phone] Obesity (BMI 30-39.9) (Primary Dx); Class 2 obesity due to excess calories [...] Access Answer Date Recorded Internet Access Q1 Yes 12/10/2024 Internet Access Q2 I do not want or need it 11/19 Comments No Sex and Gender Information Value Date Recorded Sex Assigned at Female 12/18/2021 10:39 AM EDT Legal Sex Female 10:39 AM EDT Gender Identity Female 12/18/2021 10:39 AM EDT Sexual Orientation Choose not to disclose 2021 10:39 AM EDT documented as of this encounter Progress Notes * Caty Christopher MD - 12/10/2024 9:00 AM EDT SUBJECTIVE: Capri Snider is a 44 y.o. year old female who presents for follow up obesity. Denies recent illness, injury, or hospitalization. Overall patient is doing well, she is back on Zepbound and denies nausea, abdominal pain or distention, constipation or diarrhea. She was out of medication for approximately 3 weeks due to lapse of insurance coverage, however she has been doing well on medication and her BMI went from 36-29 in 1 year. 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 HENT: Negative for congestion, ear pain, nosebleeds, rhinorrhea, sinus pressure, sore throat and trouble swallowing. Eyes: Negative for pain and discharge. Respiratory: Negative for cough, chest tightness and shortness of breath. Cardiovascular: Negative for chest pain, palpitations and leg swelling. Gastrointestinal: Negative for abdominal pain, blood in stool, constipation, diarrhea and nausea. Endocrine: Negative for polydipsia and polyuria. Genitourinary: Negative for dysuria, frequency, genital sores, pelvic pain and vaginal discharge. Musculoskeletal: Negative for back pain and neck pain. Skin: Negative for rash. Allergic/Immunologic: Negative for environmental allergies. Neurological: Negative for dizziness, seizures, weakness, light-headedness and headaches. Hematological: Negative for adenopathy. Psychiatric/Behavioral: Negative for agitation, behavioral problems, self-injury and suicidal ideas. OBJECTIVE: There were no vitals filed for this visit. Problem List Items Addressed This Visit Obesity (BMI 30-39.9) - Primary Doing great, BMI is significantly improved since she started on GLP's, She tolerates well Zepbound Stressed the importance of continuing a low calorie diet and avoid soda and sugary beverage consumption, increase protein intake with meals (at least 1 portion of protein with each meal) to assist with satiety, increase dietary fiber Recommended at least 150 min/week of moderate intensity exercise. Increase Zepbound to 15 mg and follow-up with me in 3 months. Other Visit Diagnoses Class 2 obesity due to excess calories without serious comorbidity with body mass index (BMI) of 35.0 to 35.9 in adult See dx Obesity above Follow Up: Medications Ordered Prior to Encounter[3] [1] Patient Active Problem List Diagnosis Hyperlipidemia Hypothyroidism Prediabetes Petechial eruption Palpitations Obesity (BMI 30-39.9) Screening mammogram for breast cancer Chronic pain of left knee Cystitis with hematuria Dysuria [2] Family History Problem Relation Name Age of Onset Other (htn) Mother Hypothyroidism Mother Hyperlipidemia Mother Diabetes Father [3] Current Outpatient Medications on File Prior to Visit Medication Sig Dispense Refill acetaminophen (Tylenol 8 Hour) 650 MG ER tablet Take 1 tablet by mouth in the morning and 1 tablet at noon and 1 tablet in the evening. atorvastatin (Lipitor) 10 MG tablet Take 1 tablet (10 mg) by mouth at bedtime. 90 tablet 1 cyanocobalamin (Vitamin B-12) 1000 MCG tablet Take 1 tablet by mouth at bed time. Diclofenac Sodium (Voltaren) 1 % gel USE TID 100 g 2 ergocalciferol (Vitamin D2) 1.25 MG (99129 UT) capsule Take 1 capsule (1.25 mg) by mouth 1 (one) time per week. 4 capsule 3 fluticasone (Flonase) 50 MCG/ACT nasal spray Administer 2 sprays into each nostril in the morning. Shake gently. Before first use, prime pump. After use, clean tip and replace cap. 16 g 2 hydroquinone 4 % cream APPLY TO THE AFFECTED AREA(S) TOPICALLY TWICE DAILY 28.35 g 3 levothyroxine (Synthroid, Levoxyl) 88 MCG tablet Take 1 tablet (88 mcg) by mouth before breakfast. 30 tablet 2 [DISCONTINUED] Tirzepatide-Weight Management (Zepbound) 10 MG/0.5ML solution auto-injector Inject 0.5 mL (10 mg) under the skin every 7 (seven) days. 2 mL 2 No current facility-administered medications on file prior to visit. documented in this encounter Miscellaneous Notes * Assessment & Plan Note - Caty Christopher MD - 12/10/2024 1:37 PM EDT Associated Problem(s): Obesity (BMI 30-39.9) Doing great, BMI is significantly improved since she started on GLP's, She tolerates well Deidre Stressed the importance of continuing a low calorie diet and avoid soda and sugary beverage consumption, increase protein intake with meals (at least 1 portion of protein with each meal) to assist with satiety, increase dietary fiber Recommended at least 150 min/week of moderate intensity exercise. Increase Zepbound to 15 mg and follow-up with me in 3 months. documented in this encounter Plan of Treatment Upcoming Encounters Date Type Department Care Team (Late st Contact Info) Description 03/10/2025 10:00 AM EST Office Visit [facility] MEDICINE [address] [place], [place] [phone] Caty Christopher MD [address] [place], [place] [phone] 03/22/2025 9:00 AM EST Office Visit [facility] OPTOMETRY [address] [place], [place] [phone] Brenda Garza, OD 230 [place] [address] documented as of this encounter Visit Diagnoses Diagnosis Obesity (BMI 30-39.9)- Primary Class 2 obesity due to excess calories without serious comorbidity with body mass index (BMI) of 35.0 to 35.9 in adult documented in this encounter Additional Health Concerns Assessment Noted Time PHQ-9 Depression Total Score: 3 09/12/19 25 9:34 AM EDT documented as of this encounter Care Teams Bottle Filler Relationship Specialty Start Date End Date Caty Christopher MD [address] [place] [address] PCP - General Internal Medicine 09/30/23 documented as of this encounter
[2024-12-15 17:09] LABS: Gamma Glutamyl Transpeptidase 23 U/L (7-33)
--- OUTSIDE RECORDS SUMMARY | 2024-12-15 19:22 | XMS_ITS | Encounter Summary ---
Author Organization [employer] Address 75 [facility] 7 [place] [address] Care Team Providers Care Service Delivery Director Name Role Phone Caty Christopher MD Primary Care Provider + Reason for Visit * Reason Comments Med Refill Encounter Details Date Type Department Care Team ([facility] st Contact Info) Description 10/20/2024 Refill [facility]INE [address] [place], [place] [phone] Caty Christopher MD [address] [place], [place] [phone] Hypothyroidism, unspecified type Social History Tobacco Use [...] Description 03/10/2025 10:00 AM EST Office Visit [facility] MED[facility]INE [address] [place] [address] Caty Christopher MD 230 [place] [address] 03/22/2025 9:00 AM EST Office Visit [facility] OPTOMETRY [address] [place] [address] Greg, Brenda, OD 230 [place] [address] documented as of this encounter Visit Diagnoses Diagnosis Hypothyroidism, unspecified type documented in this encounter Additional Health Concerns Assessment Noted Time PHQ-9 Depression Total Score: 3 09/12/19 25 9:34 AM EDT documented as of this encounter Care Teams Service Delivery Director Relationship Specialty Start Date End Date Caty Christopher MD [address] [place] [address] PCP - General Internal Medicine 09/30/23 documented as of this encounter
--- OUTSIDE RECORDS SUMMARY | 2024-12-15 19:22 | XMS_ITS | Encounter Summary ---
Author Organization [employer] Address 75 [facility] 7 [place] [address] Care Team Providers Care Nuclear Medical Tech Name Role Phone Martha Cruz MD Primary Care Pro vider Caty Christopher MD Primary Care Provider + Reason for Visit * Reason Comments Med Refill Encounter Details Date Type Department Care Team (Late st Contact Info) Description 05/09/2023 Refill [facility] MEDICINE [address] [place], [place] [phone] Name, MD Oracio [address] [place], [place] [phone] Social History Tobacco Use Types Packs/Day Years [...] Description 03/10/2025 10:00 AM EST Office Visit [facility] MEDICINE [address] [place], [place] [phone] Caty Christopher MD [address] [place], [place] [phone] 03/22/2025 9:00 AM EST Office Visit [facility] OPTOMETRY [address] [place], [place] [phone] Brenda Garza, OD 230 [place], [place] [phone] documented as of this encounter Visit Diagnoses Not on filedocumented in this encounter Care Teams Nuclear Medical Tech Relationship Specialty Start Date End Date Martha Cruz MD [address] [place], [place] [phone] PCP - General Internal Medicine 10/02/22 09/29/23 Caty Christopher MD [address] [place] [address] [phone] PCP - General Internal Medicine 09/30/23 documented as of this encounter
--- OUTSIDE RECORDS SUMMARY | 2024-12-15 19:22 | XMS_ITS | Clinical Summary ---
Author Organization [facility] Address [address] [place] [phone] Phone Care Team Providers Care Sandstone Inspector Repairer Name Role Phone Pcp, Unknown Primary Care [...] topic Medical Devices Not on file Insurance [employer] LIMITED [facility] Care Teams Sandstone Inspector Repairer Relationship Specialty Start Date End Date Pcp, Unknown PCP - General 01/18/21 Additional Source Comments The information contained in this document represents components of the legal health record. It is not the complete legal health record.[facility]
--- OUTSIDE RECORDS SUMMARY | 2024-12-15 19:22 | XMS_ITS | Clinical Summary ---
Author Organization [employer] Address 75 [facility] 7t [place] [address] Care Team Providers Care Agricultural Technician Name Role Phone Caty Christopher MD Primary [...] 24 Active ergocalciferol (Vitamin D2) 1.25 MG (85293 UT) capsule Take 1 capsule (1.25 mg) by mouth 1 (one) time per week. 4 capsule 3 02/11/20 24 025 Active atorvastatin (Lipitor) 10 MG tablet Take 1 tablet (10 mg) by mouth at bedtime. 90 tablet 1 06/11/19 25 Active hydroquinone 4 % cream APPLY TO THE AFFECTED AREA(S) TOPICALLY TWICE DAILY 28.35 g 3 08/12/19 25 Active levothyroxine (Synthroid, Levoxyl) 88 MCG tabletIndicatio ns:Hypothyroidi sm, unspecified type Take 1 tablet (88 mcg) by mouth before breakfast. 30 tablet 2 10/22/19 Active Tirzepatide-Liban ght Management (Zepbound) 15 MG/0.5ML solution auto-injectorIn dications:Obesi ty (BMI 30-39.9) Inject 0.5 mL (15 mg) under the skin 1 (one) time per week. 2 mL 3 12/11/19 25 Active Tirzepatide-Liban ght Management (Zepbound) 10 MG/0.5ML solution auto-injectorIn dications:Class 2 obesity due to excess calories without serious comorbidity with body mass index (BMI) of 35.0 to 35.9 in adult Inject 0.5 mL (10 mg) under the skin every 7 (seven) days. 2 mL 2 09/12/19 25 025 Discontinued azithromycin (Zithromax) 250 MG tabletIndicatio ns:Traveler's diarrhea Take 2 tablets (500 mg) by mouth Once per day for 3 days. 6 tablet 11/20/19 25 025 Active Problems Problem Noted Date Diagnosed Date [...] Obesity (BMI 30-39.9) 02/11/2024 Assessment & Plan (12/10/2024 1:46 PM EDT): Doing great, BMI is significantly improved since [...] and follow-up with me in 3 months. 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 I will prescribe [...] Plan (03/26/2024 9:57 AM EST): Seen by Department Mgr, and recommended warm compresses and continue artificial [...] Encounters Date Type Department Care Team Description 12/10/2024 9:00 AM EDT Telemedicine [address] [phone] Caty Christopher MD Obesity (BMI 30-39.9) (Primary Dx); Class 2 obesity due to excess calories without serious comorbidity with body mass index (BMI) of 35.0 to 35.9 in adult 12/10/2024 Travel 12/09/2024 Telephone [facility] MED[facility]INE [address] [place] [phone] Caty Christopher MD CHART PREP 11/23/2024 Refill [facility] [address] [place] [phone] Caty Christopher MD Class 2 obesity due to excess calories without serious comorbidity with body mass index (BMI) of 35.0 to 35.9 in adult 11/19/2024 9:00 AM EDT Office Visit [facility] [address] [place] [phone] Colt Kelly MD Traveler's diarrhea (Primary Dx); Viral URI 11/19/2024 Travel 11/16/[address] [address] Caty Christopher MD Med Refill 10/29/[address] [address] Caty Christopher MD telephone call; Durable Medical Equipment ([facility]: Zepbound) 10/21/2024 Refill [facility] [address] [place] [phone] Caty Christopher MD Hypothyroidism, unspecified type 10/20/2024 Refill [facility] [address] [place] [phone] Caty Christopher MD Hypothyroidism, unspecified type 10/15/2024 Telephone [facility] [address] [place] [phone] Caty Christopher MD november recall 09/22/2024 Results Follow-Up [facility] [address] [place] [phone] Caty Christopher MD Lipid Panel with Reflex to Direct LDL, TSH with Reflex to Free T4, Hepatic Function Panel from Last 3 Months Immunizations Immunization Administration [...] Answer Date Recorded Internet Access Q1 Yes 12/12/2024 Internet Access Q2 Not on file 12/12/2024 Comments No Sex and Gender Information Value [...] Description 03/10/2025 10:00 AM EST Office Visit [facility]INE [address] [place] [address] Caty Christopher MD [address] [place] [address] 03/22/2025 9:00 AM EST Office Visit [facility] OPTOMETRY [address] [place] [address] Brenda Garza, FRANK 230 [place] [address] Health Maintenance Due Date Last Done Comments HIV Screening 1980 Family Planning (PISQ) 01/20/1995 HPV Vaccines (1 - 3-dose series) 01/20/1995 Hepatitis C Screening 01/20/1998 Mammogram 06/27/2023 06/26/2021 Depression Screening 09/11/2025 09/11/2024, 09/12/19 Diabetes: Hemoglobin A1C 09/11/2025 025, 10/15/2023, 11/01/2021, Additional history exists Disability Screening 09/11/2025 09/11/2024 Tobacco Screening 11/19/2025 11/19/2024 Alcohol/Substance Use Screening 12/10/2025 12/10/2024 SDOH Screening 12/10/2025 12/10/2024 Cervical Cancer Screening 07/27/2026 HPV/Cotest 07/27/2026 07/27/2021, 07/27/2021 Pap Smear 07/27/2026 07/27/2021 Lipid Panel 09/14/2029 09/14/2024, 0808/2023, 01/30/2023, Additional history exists DTaP/Tdap/Td Vaccines (3 [...] Procedure Name Priority Date/Time Associated Diagnosis Comments GGT Routine 12/15/2024 3:01 PM EDT Elevated liver enzymes POCT INFLUENZA A (ID NOW RAPID MOLECULAR) [...] of 35.0 to 35.9 in adult POCT GLYCATED HEMOGLOBIN, TOTAL Routine 09/11/2024 9:16 AM EDT Prediabetes ZZZ HISTORICAL HPV E6/E7 RFLX PEDRO 16 18/45 Routine 07/27/2021 10:13 AM EDT HM PAP/HPV Routine 07/27/2021 MAMMOGRAM GENERIC Routine 06/26/2021 8:1 5 AM EDT from Last 3 Months or Most Recently Relevant to Health Maintenance Results * Gamma Glutamyl Transferase (GGT) (12/15/2024 3:01 PM EDT) [facility] Gamma Glutamyl Transpeptidase 23 7 - 33 U/L [facility] Blood Venous blood specimen / Unknown 12/15/2024 3:01 PM EDT 12/15/2024 4:12 PM EDT Caty Christopher MD LAB BLOOD ORDERABLES Fin al Result Performing Organization Address City/[facility]/ZIP Co de Phone Number [facility] [address] [place] [address] [phone] * Influenza A (ID NOW Rapid Molecular) (11/19/2024 9:20 AM EDT) [facility] Influenza A Negative Negative, Indeterminate [facility] Swab 11/19/2024 9:20 AM EDT Colt Kelly MD POINT OF CARE TEST ENTER/EDIT OR DERABLES Final Result Performing Organization Address [facility]/ZIP Co de Phone Number [facility] [address] [place] [phone] * Influenza B (ID NOW Rapid Molecular) (11/19/2024 9:19 AM EDT) [facility] Influenza B Negative Negative, Indeterminate [facility] Swab 11/19/2024 9:19 AM EDT Colt Kelly MD POINT OF CARE TEST ENTER/EDIT OR DERABLES Final Result Performing Organization Address [facility] Co de Phone Number [facility] [address] [place] [phone] * POCT Rapid COVID Ag (11/19/2024 9:13 AM EDT) [facility] Rapid COVID Ag Negative Swab 11/19/2024 [...] to Free T4 (09/14/2024 9:39 AM EDT) Pathologist [facility] TSH reflex Free T4 1.23 0.32 - 4.0 uIU/mL [facility] Blood 09/14/2024 9:39 AM EDT 09/14/2024 11:31 AM EDT Caty Christopher MD LAB BLOOD ORDERABLES Fin al Result [facility] [address] [place] [phone] * (ABNORMAL) Lipid Panel with Reflex to Direct LDL (09/14/2024 9:39 AM EDT) Pathologist [facility] Triglycerides 105 <150 mg/dL [facility] Comment:Desirable Triglyceri de: less than 150 mg/dLBorderline High Triglyceride 150-199 mg/dLHigh Triglyceride: 200-499 mg/dLVery High Triglyceride: greater than or equal to 5OO mg/dL Cholesterol 146 <200 mg/dL [facility] Comment:Desirable Cholestero l: less than 200 mg/dLBorderline High Cholesterol: 200-239 mg/dLHigh Cholesterol: greater than 239 mg/dL LDL Cholesterol Calculated 86 <100 mg/dL [facility] Comment:Desirable LDL: less than 100 mg/dLNear Optimal/Above Optimal LDL: 110- 129 mg/dLBorderline High LDL: 130-159 mg/dLHigh LDL: 160-189 mg/dLVery High LDL: greater than or equal to 190 mg/dL HDL Cholesterol 39(L) >40 mg/dL [facility] Comment:Desirable HDL: great er than 40 mg/dL Note: This HDL assay may give artificially low results in patients with liver disease. Blood 09/14/2024 9:39 AM EDT 09/14/2024 11:31 AM EDT us Caty Christopher MD LAB BLOOD ORDERABLES Fin al Result Performing Organization Address City/[facility]/ZIP Co de Phone Number [facility] [address] [place] [address] [phone] * (ABNORMAL) Hepatic Function Panel (09/14/2024 9:39 AM EDT) Bilirubin, Total 0.3 0.0 - 1.0 mg/dL [facility] Bilirubin, Direct 0.1 0.0 - 0.5 mg/dL [facility] Aspartate Amino Transferase 36(H) 5 - 31 U/L [facility] Alanine Aminotransferase 13 0 - 31 U/L [facility] Total Protein 7.3 6.5 - 8.0 g/dL [facility] Albumin Level 4.2 3.5 - 5.0 g/dL [facility] Alkaline Phosphatase 91 39 - 117 U/L [facility] Blood Venous blood specimen / Unknown 09/14/2024 9:39 AM EDT 09/14/2024 11:31 AM EDT us Caty Christopher MD LAB BLOOD ORDERABLES Fin al Result Performing Organization Address City/[facility]/ZIP Co de Phone Number [facility] [address] [place] [address] [phone] * POCT HGB A1C (09/11/2024 9:16 [...] mRNA E6/E7 rflx Not Detected Not Detected [facility] Comment: Methodology: [employer] Freight-Mediated Amplification This assay detects E6/E7 viral messenger RNA (mRNA) from 14 high-risk HPV types (16,18,31,33,35,39,45,51,52,56,58,59,66,68). Cervical sources are required for HPV testing. If a vaginal source from a patient who has had a total hysterectomy with removal of cervix was submitted, please contact the testing laboratory for alternative testing options. For additional information, please refer to http://education.[employer]/faq/NHK388b5 (This link if provided for information/ educational purposes only.) THIS TEST WAS PERFORMED AT: [employer] [address] [place] [address] [address]LO[address],[place] [phone] DEJA ERIC MD 07/27/2021 10:1 3 AM EDT Keiko Iraheta HISTORICAL/NON ORDERABLE LABS Fi nal Result [facility] [address] * Hm Pap Smear (07/27/2021) Historical [...] Most Recently Relevant to Health Maintenance [place] [address] [place] [address] [employer] 3 Care Teams Agricultural Technician Relationship Specialty Start Date End Date Caty Christopher MD [address] [place] [phone] PCP - General Internal Medicine 09/30/23
--- OUTSIDE RECORDS SUMMARY | 2024-12-15 19:22 | XMS_ITS | Encounter Summary ---
Author Organization [employer] Address [address] [facility] 7 [place] [address] Care Team Providers Care Yarding Engineer Name Role Phone Martha Cruz MD Primary Care Pro vider Caty Christopher MD Primary Care Provider + Encounter Details Date Type Department Care Team (Late st Contact Info) Description 11/09/2022 Orders Only [facility] MEDICINE [address] [place] [address] [phone] ProviderAlvaro MD Social History Tobacco Use Types [...] Description 03/10/2025 10:00 AM EST Office Visit [facility] MEDICINE [address] [place] [address] [phone] Caty Christopher MD [address] [place] [address] [phone] 03/22/2025 9:00 AM EST Office Visit [facility] OPTOMETRY [address] [place] [address] Brenda Garza, OD [address] [place] [address] documented as of this encounter Procedures Procedure Name Priority Date/Time Associated Diagnosis Comments HM PAP/HPV Routine 07/27/2021 documented in this encounter Results * Hm Pap Smear (07/27/2021) Historical Provider HEALTH MAINTENANCE Final Result documented in this encounter Visit Diagnoses Not on filedocumented in this encounter Care Teams Yarding Engineer Relationship Specialty Start Date End Date Martha Cruz MD [address] [place] [address] PCP - General Internal Medicine 10/02/22 09/29/23 Caty Christopher MD 230 [place] [address] PCP - General Internal Medicine 09/30/23 documented as of this encounter
--- OUTSIDE RECORDS SUMMARY | 2024-12-15 19:23 | XMS_ITS | Encounter Summary ---
Author Organization [employer] Address 75 [facility] 7 [place] [address] Care Team Providers Care Financial Services Technician Name Role Phone Aydin Mcallister MD Primary Care Provider Unava ilable Martha Cruz MD Primary Care Pro vider Caty Christopher MD Primary Care Provider + Encounter Details Date Type Department Care Team (Latest Contact Info) Description 04/24/2021 Abstract [facility] CONVERSIONS Dental, Provider, DDS Social History [...] Description 03/10/2025 10:00 AM EST Office Visit [facility] MEDICINE [address] [place], [place] [phone] Caty Christopher MD 230 [place], [place] [phone] 03/22/2025 9:00 AM EST Office Visit [facility] OPTOMETRY [address] [place], [place] [phone] Brenda Garza OD 230 [place] [address] documented as of this encounter Visit Diagnoses Not on filedocumented in this encounter Care Teams Financial Services Technician Relationship Specialty Start Date End Date Aydin Mcallister MD PCP - General Family Medicine 12/22/20 10/01/22 Martha Cruz MD 230 [place] [address] PCP - General Internal Medicine 10/02/22 09/29/23 Caty Christopher MD [address] [place] [phone] PCP - General Internal Medicine 09/30/23 documented as of this encounter
--- OUTSIDE RECORDS SUMMARY | 2024-12-15 19:23 | XMS_ITS | Encounter Summary ---
Author Organization [employer] Address 75 [facility] 7 [place] [address] Care Team Providers Care Child Welfare Assistant Name Role Phone Caty Christopher MD Primary Care Provider + Reason for Visit * Reason Comments Med Refill Encounter Details Date Type Department Care Team ([facility] st Contact Info) Description 11/23/2024 Refill [facility] MEDICINE [address] [place], [place] [phone] Caty Christopher MD 230 [place], [place] [phone] Class 2 obesity due to excess calories [...] Description 03/10/2025 10:00 AM EST Office Visit [facility] MEDICINE [address] [place] [address] Caty Christopher MD 230 [place] [address] 03/22/2025 9:00 AM EST Office Visit [facility] OPTOMETRY [address] [place] [address] Brenda Garza, OD 230 [place] [address] documented as of this encounter Visit Diagnoses Diagnosis Class 2 obesity due to excess calories without serious comorbidity with body mass index (BMI) of 35.0 to 35.9 in adult documented in this encounter Additional Health Concerns Assessment Noted Time PHQ-9 Depression Total Score: 3 09/12/19 25 9:34 AM EDT documented as of this encounter Care Teams Child Welfare Assistant Relationship Specialty Start Date End Date Caty Christopher MD [address] [place] [phone] PCP - General Internal Medicine 09/30/23 documented as of this encounter
--- OUTSIDE RECORDS SUMMARY | 2024-12-15 19:23 | XMS_ITS | Encounter Summary ---
Author Organization [email or web address] Address 75 [facility] 7t [place] [address] Care Team Providers Care Bleach Range Operator Name Role Phone Caty Christopher MD Primary Care Provider + Encounter Details Date Type Department Care Team (Latest Contact Info) Description 12/10/2024 Travel Social History Tobacco Use Types Packs/Day [...] Description 03/10/2025 10:00 AM EST Office Visit [facility] MEDICINE 230 [place] [address] Caty Christopher MD 230 [place] [address] 03/22/2025 9:00 AM EST Office Visit [facility] OPTOMETRY [address] [place] [address] Greg, Brenda, OD 230 [place] [address] documented as of this encounter Visit Diagnoses Not on filedocumented in this encounter Additional Health Concerns Assessment Noted Time PHQ-9 Depression Total Score: 3 09/12/19 25 9:34 AM EDT documented as of this encounter Care Teams Bleach Range Operator Relationship Specialty Start Date End Date Caty Christopher MD [address] [place] [address] PCP - General Internal Medicine 09/30/23 documented as of this encounter
[2024-12-16 08:14] LABS: Hepatitis A Antibody IgM 0.21 Index (0-0.79); Hepatitis A Antibody IgM 0.22 Index (0-0.79); ~Hepatitis A Antibody IgM Nonreactive (Nonreactive)
[2024-12-16 08:47] LABS: HBS Num1 146.58 mIU/mL (0-7.99); HBc Num1 0.07 S/CO (0.00-0.79); HBsAGNum1 0.39 S/CO (0.00-0.99); Hepatitis B Surface Antigen Negative (Negative); ~HepC Num1 0.08 S/CO (0.00-0.79); ~Hepatitis B Surface Antibody REACTIVE (Nonreactive); ~Hepatitis C Antibody Nonreactive (Nonreactive)
== END 2024-12-15 14:58 | disposition home or self-care (01) ==
LOC: HO.HHCL 14:57
PROVIDERS: Family Medicine; PCP Internal Medicine; Visit Provider Internal Medicine
DX: R74.8 Abnormal levels of other serum enzymes (principal); A09 Infectious gastroenteritis and colitis, unspecified
CPT/HCPCS: 36415; 82977; 86704; 86706; 86709; 86803; 87340

== ENCOUNTER 2025-01-25 13:38 | Outpatient (REF) | payer OTHER, SELFPAY ==
[2025-01-25 16:42] LABS: Alanine Aminotransferase 17 U/L (0-31); Albumin Level 4.6 g/dL (3.5-5.0); Alkaline Phosphatase 83 U/L (39-117); Aspartate Amino Transferase 21 U/L (5-31); Total Protein 7.5 g/dL (6.5-8.0)
--- OUTSIDE RECORDS SUMMARY | 2025-01-25 22:24 | XMS_ITS | Clinical Summary ---
Author Organization [employer] Address 75 [facility] 7t [place] [address] Care Team Providers Care Seaweed Harvester Name Role Phone Caty Christopher MD Primary [...] 24 Active ergocalciferol (Vitamin D2) 1.25 MG (25745 UT) capsule Take 1 capsule (1.25 mg) by mouth 1 (one) time per week. 4 capsule 3 02/11/20 24 025 Active atorvastatin (Lipitor) 10 MG tablet Take 1 tablet (10 mg) by mouth at bedtime. 90 tablet 1 06/11/19 25 Active hydroquinone 4 % cream APPLY TO THE AFFECTED AREA(S) TOPICALLY TWICE DAILY 28.35 g 3 08/12/19 25 Active Tirzepatide-We ight Management (Zepbound) 15 MG/0.5ML solution auto-injectorI ndications:Danya camargo (BMI 30-39.9) Inject 0.5 mL (15 mg) under the skin 1 (one) time per week. 2 mL 3 12:08 PM EST 12/11/19 Active levothyroxine (Synthroid, Levoxyl) 88 MCG tabletIndicati ons:Hypothyroi dism, unspecified type TAKE 1 TABLET BY MOUTH EVERY DAY BEFORE BREAKFAST 90 tablet 1 12:08 PM EST 01/13/20 Active levothyroxine (Synthroid, Levoxyl) 88 MCG tabletIndicati ons:Hypothyroi dism, unspecified type Take 1 tablet (88 mcg) by mouth before breakfast. 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 I will prescribe [...] Plan (03/26/2024 9:57 AM EST): Seen by Instrument Technologist, and recommended warm compresses and continue artificial [...] Encounters Date Type Department Care Team Description 01/25/2025 Telephone [facility] MEDICINE [address] [place] [phone] Caty Christopher MD Med Refill 01/12/2025 Refill [facility] [address] [place] [phone] Caty Christopher MD Hypothyroidism, unspecified type 12/17/2024 Results Follow-Up [facility] [address] [place] [phone] Colt Kelly MD Influenza A (ID NOW Rapid Molecular), Influenza B (ID NOW Rapid Molecular), POCT Rapid COVID Ag, Additional followed-up results: 2 12/10/2024 9:00 AM EDT Telemedicine [facility] MED[facility]INE [address] [place] [phone] Caty Christopher MD Obesity (BMI 30-39.9) (Primary Dx); Class 2 obesity due to excess calories without serious comorbidity with body mass index (BMI) of 35.0 to 35.9 in adult 12/10/2024 Travel 12/09/[address] [address] Caty Christopher MD CHART PREP 11/23/[address] [address] Caty Christopher MD Class 2 obesity due to excess calories without serious comorbidity with body mass index (BMI) of 35.0 to 35.9 in adult 11/19/2024 9:00 AM EDT Office Visit [facility] [address] [place] [phone] Colt Kelly MD Traveler's diarrhea (Primary Dx); Viral URI 11/19/2024 Travel 11/16/[address] [phone] Caty Christopher MD Med Refill 10/29/[address] [address] Caty Christopher MD telephone call; Durable Medical Equipment ([facility]: Zepbound) from Last 3 Months Immunizations Immunization Administration [...] is your housing situation today? I have [place]ana hidalgo 12/12/[address] you [...] Description 03/10/2025 10:00 AM EST Office Visit [facility] MEDICINE [address] [place] [address] Caty Christopher MD 230 [place] [address] 03/22/2025 9:00 AM EST Office Visit [facility] OPTOMETRY [address] [place] [address] Brenda Garza, OD 230 [place] [address] Health Maintenance Due Date Last Done Comments CT Colonography 1980 Colonoscopy 1980 Colorectal Cancer Screening 1980 FIT DNA/Cologuard 1980 FIT 1980 FOBT 1980 HIV Screening 1980 Sigmoidoscopy 1980 Family Planning (PISQ) 01/20/1995 HPV Vaccines (1 - 3-dose series) 01/20/1995 Mammogram 06/27/2023 06/26/2021 COVID-19 Vaccine ( season) 2024 11/26/2023, 01/23/2023, 11/20/2021, Additional history exists Depression Screening 09/11/2025 09/11/2024, 09/12/19 Diabetes: Hemoglobin [...] Hepatitis B Vaccines Completed 09/12/2017, 05/13/2017, 04/09/2017 Influenza Vaccine Completed 10/21/2024, , 11/05/2022, Additional history exists Hepatitis C Screening Completed 12/15/2024 HIB Vaccines Aged Out No longer eligi [...] Procedure Name Priority Date/Time Associated Diagnosis Comments HEPATIC FUNCTION PANEL Routine 01/25/2025 1:43 PM EST Elevated liver enzymes HEPATITIS A IGM ANTIBODY Routine 12/15/2024 3:01 PM EDT Traveler's diarrhea HEPATITIS PANEL, GENERAL Routine 12/15/2024 3:01 PM EDT Elevated liver enzymes GGT Routine 12/15/2024 3:01 PM EDT Elevated liver enzymes POCT INFLUENZA A (ID NOW RAPID MOLECULAR) Routine 11/19/2024 9:20 AM EDT Viral URI POCT INFLUENZA B (ID NOW RAPID MOLECULAR) Routine 11/19/2024 9:19 AM EDT Viral URI POCT RAPID COVID ANTIGEN Routine 11/19/2024 9:13 AM EDT Viral URI POCT RAPID STREP A Routine 11/19/2024 9: 12 AM EDT Viral URI LIPID PANEL WITH REFLEX TO DIRECT LDL [...] Recently Relevant to Health Maintenance Results * Hepatic Function Panel (01/25/2025 1:43 PM EST) Bilirubin, Total 0.3 0.0 - 1.0 mg/dL [facility] Bilirubin, Direct 0.1 0.0 - 0.5 mg/dL [facility] Aspartate Amino Transferase 21 5 - 31 U/L [facility] Alanine Aminotransferase 17 0 - 31 U/L [facility] Total Protein 7.5 6.5 - 8.0 g/dL [facility] Albumin Level 4.6 3.5 - 5.0 g/dL [facility] Alkaline Phosphatase 83 39 - 117 U/L [facility] Blood Venous blood specimen / Unknown 01/25/2025 1:43 PM EST 01/25/2025 4:07 PM EST Caty Christopher MD LAB BLOOD ORDERABLES Fin al Result Performing Organization Address [facility] de Phone Number [facility] [address] [place] [phone] * Hepatitis Panel, General (12/15/2024 3:01 PM EDT) Pathologist [facility] Hepatitis A IgM Nonreactive Nonreactive [facility] Comment:IgM antibodies to HICKEY V not detected; does not exclude earlyacute or recovered HAV infection. ~Hepatitis B Surface Antibody REACTIVE Nonreactive [facility] Comment:REACTIVE: > 11.99 mI U/mL Hepatitis B Core Antibody Nonreactive Nonreactive [facility] Hepatitis C Antibody Nonreactive Nonreactive [facility] Comment:Antibodies to HCV no t detected; does not exclude early acuteHCV infection. Hepatitis B Surface Ag Negative Negative [facility] Blood 12/15/2024 3:01 PM EDT 12/15/2024 4:21 PM EDT Caty Christopher MD LAB BLOOD ORDERABLES Fin al Result Performing Organization Address [facility] Co de Phone Number [facility] [address] [place] [phone] * Hepatitis A IgM (12/15/2024 3:01 PM EDT) Hepatitis A IgM Nonreactive Nonreactive [facility] Comment:IgM antibodies to HICKEY V not detected; does not exclude earlyacute or recovered HAV infection. Blood Venous blood specimen / Unknown 12/15/2024 3:01 PM EDT 12/15/2024 4:21 PM EDT Colt Kelly MD LAB BLOOD ORDERABLES Final Resul t Performing Organization Address [facility]/ZIP Co de Phone Number [facility] [address] [place] [phone] * Gamma Glutamyl Transferase (GGT) (12/15/2024 3:01 PM EDT) Pathologist [facility] Gamma Glutamyl Transpeptidase 23 7 - 33 U/L [facility] Blood Venous blood specimen / Unknown 12/15/2024 3:01 PM EDT 12/15/2024 4:12 PM EDT Caty Christopher MD LAB BLOOD ORDERABLES Fin al Result Performing Organization Address [facility]/ZIP Co de Phone Number [facility] [address] [place] [phone] * Influenza A (ID NOW Rapid Molecular) (11/19/2024 9:20 AM EDT) Pathologist [facility] Influenza A Negative Negative, Indeterminate [facility] Swab 11/19/2024 9:20 AM EDT Colt Kelly MD POINT OF CARE TEST ENTER/EDIT OR DERABLES Final Result Performing Organization Address [facility] Co de Phone Number [facility] [address] [place] [phone] * Influenza B (ID NOW Rapid Molecular) (11/19/2024 9:19 AM EDT) [facility] Influenza B Negative Negative, Indeterminate [facility] Swab 11/19/2024 9:19 AM EDT us Colt Kelly MD POINT OF CARE TEST ENTER/EDIT OR DERABLES Final Result [facility] [address] [place] [phone] * POCT Rapid COVID Ag (11/19/2024 9:13 AM EDT) [facility] Rapid COVID Ag Negative Swab 11/19/2024 9:13 AM EDT us Colt Kelly MD POINT OF CARE TEST ENTER/EDIT OR DERABLES Final Result * POCT rapid strep A manually resulted (11/19/2024 9:12 AM EDT) [facility] Rapid Strep A Screen Negative Negative, None Detected Swab 11/19/2024 9:12 AM EDT us Colt Kelly MD POINT OF CARE TEST ENTER/EDIT OR DERABLES Final Result * (ABNORMAL) Lipid Panel with Reflex to Direct LDL (09/14/2024 9:39 AM EDT) [facility] Triglycerides 105 <150 mg/dL [facility] Comment:Desirable Triglyceri de: less than 150 mg/dLBorderline High Triglyceride 150-199 mg/dLHigh Triglyceride: 200-499 mg/dLVery High Triglyceride: greater than or equal to 5OO mg/dL Cholesterol 146 <200 mg/dL [facility] Comment:Desirable Cholestero l: less than 200 mg/dLBorderline High Cholesterol: 200-239 mg/dLHigh Cholesterol: greater than 239 mg/dL LDL Cholesterol Calculated 86 <100 mg/dL [facility] Comment:Desirable LDL: less than 100 mg/dLNear Optimal/Above Optimal LDL: 110- 129 mg/dLBorderline High LDL: 130-159 mg/dLHigh LDL: 160-189 mg/dLVery High LDL: greater than or equal to 190 mg/dL HDL Cholesterol 39(L) >40 mg/dL [facility] Comment:Desirable HDL: great er than 40 mg/dL Note: This HDL assay may give artificially low results in patients with liver disease. Blood 09/14/2024 9:39 AM EDT 09/14/2024 11:31 AM EDT Caty Christopher MD LAB BLOOD ORDERABLES Fin al Result [facility] [address] [place] [phone] * POCT HGB A1C (09/11/2024 9:16 [...] mRNA E6/E7 rflx Not Detected Not Detected [facility] Comment: Methodology: Gas Substation Operator-Mediated Amplification This assay detects E6/E7 viral messenger RNA (mRNA) from 14 high-risk HPV types (16,18,31,33,35,39,45,51,52,56,58,59,66,68). Cervical sources are required for HPV testing. If a vaginal source from a patient who has had a total hysterectomy with removal of cervix was submitted, please contact the testing laboratory for alternative testing options. For additional information, please refer to http://education.BIOCUREX/faq/UXC447u1 (This link if provided for information/ educational purposes only.) THIS TEST WAS PERFORMED AT: [facility] [address] [place] [address] [address],[place] [phone] DEJA ERIC MD 07/27/2021 10:1 3 AM EDT us Keiko Iraheta HISTORICAL/NON ORDERABLE LABS Fi nal Result [facility] [address] * Hm Pap Smear (07/27/2021) Historical [...] details Legacy Procedure: Mammography Report 1 Aydin Mcallsiter MD IMG BI PROCEDURES Final Resu lt from Last 3 Months or Most Recently Relevant to Health Maintenance Insurance [facility] [address] [place] [id number] Care Teams Seaweed Harvester Relationship Specialty Start Date End Date Caty hCristopher MD [address] [place] [phone] PCP - General Internal Medicine 09/30/23
--- OUTSIDE RECORDS SUMMARY | 2025-01-25 22:24 | XMS_ITS | Encounter Summary ---
Author Organization [employer] Address 75 [facility] 7 [place] [address] Care Team Providers Care Glass Glazier Name Role Phone Caty Christopher MD Primary Care Provider + Reason for Visit * Reason Onset Date Comments Results 09/22/2024 Encounter Details Date Type Department Care Team ([facility] st Contact Info) Description 09/22/2024 Results Follow-Up [facility] MEDICINE [address] [place], [place] [phone] Caty Christopher MD 230 [place], [place] [phone] Lipid Panel with Reflex to Direct LDL, TSH with Reflex to Free T4, Hepatic Function Panel Social History Tobacco Use Types Packs/Day Years [...] as of this encounter Miscellaneous Notes * Addendum Note - Kathe Frank RN - 01/25/2025 10:46 AM ESTAddended by: KATHE FRANK on: 01/25/2025 10:46 AM Modules accepted: Orders * Telephone Encounter - Kathe Frank RN - 01/25/2025 10:45 AM EST TC placed to patient [phone] to inform patient it is time to return to the lab to repeat LFT testing. Patient verbalized understanding. RN has placed order. Patient to be contacted with results once available. Patient to f/u PRN. * Telephone Encounter - Kathe Frank RN - 09/23/2024 1:12 PM EDT TC returned to patient [phone] in regards to below message. Patient verbalized understanding and did not have any further questions. Patient requested a reminder call in January to repeat labs.RN will postpone message to 01/25/25 to remind patient to repeat labs. ----- Message from Caty Christopher MD sent at 09/22/2024 3:27 PM EDT ----- Labs on 09/14/2024 show minimally elevated LFTs, it could have been related to recent UTI episodes, please call patient and tell her to repeat labs in approximately 3 to 4 months, tell her to continue w weight reduction, no change in medications and we will follow-up after test results. ----- Message ----- From: Interface, Lab Results In Sent: 09/14/2024 12:24 PM EDT To: Caty Christopher MD * Telephone Encounter - Donya Cardenas - 09/23/2024 11:01 AM EDT Tc from pt retuning call * Telephone Encounter - Kathe Frank RN - 09/23/2024 10:44 AM EDT TC x2 placed to patient [phone] in regards to below message. Patient did not answer, RN left requesting CB to red team nurses. TC x2 placed to [phone] patients answered and stated he is not with the patient at this time. is not on HIPAA, RN advised to inform patient to return call to [facility] at her convenience. Patient to f/u PRN. ----- Message from Caty Christopher MD sent at 09/22/2024 3:27 PM EDT ----- Labs on 09/14/2024 show minimally elevated LFTs, it could have been related to recent UTI episodes, please call patient and tell her to repeat labs in approximately 3 to 4 months, tell her to continue w weight reduction, no change in medications and we will follow-up after test results. ----- Message ----- From: Interface, Lab Results In Sent: 09/14/2024 12:24 PM EDT To: Caty Christopher MD * Telephone Encounter - Kathe Frank RN - 09/22/2024 4:21 PM EDT TC placed to patient [phone] in regards to below message. Patient did not answer, RN left requesting CB to red team nurses. TC placed to [phone] however also no answer, RN left VM requesting CB to red team nurses. RN will re- attempt in AM. ----- Message from Caty Christopher MD sent at 09/22/2024 3:27 PM EDT ----- Labs on 09/14/2024 show minimally elevated LFTs, it could have been related to recent UTI episodes, please call patient and tell her to repeat labs in approximately 3 to 4 months, tell her to continue w weight reduction, no change in medications and we will follow-up after test results. ----- Message ----- From: Interface, Lab Results In Sent: 09/14/2024 12:24 PM EDT To: Caty Christopher MD * Result Encounter Note - Caty Christopher MD - 09/22/2024 3:27 PM EDT Labs on 09/14/2024 show minimally elevated LFTs, it could have been related to recent UTI episodes, please call patient and tell her to repeat labs in approximately 3 to 4 months, tell her to continuew weight reduction, no change in medications and we will follow-up after test results. documented in this encounter Plan of Treatment Upcoming Encounters Date Type Department Care Team (Late st Contact Info) Description 03/10/2025 10:00 AM EST Office Visit [facility] MEDICINE [address] [place] [phone] Caty Christopher MD [address] [place], [place] [phone] 03/22/2025 9:00 AM EST Office Visit [facility] OPTOMETRY [address] [place], [place] [phone] Brenda Garza, OD [address] [place] [address] documented as of this encounter Procedures Procedure Name Priority Date/Time Associated Diagnosis Comments HEPATIC FUNCTION PANEL Routine 01/25/2025 1:43 PM EST Elevated liver enzymes HEPATITIS PANEL, GENERAL Routine 12/15/2024 3:01 PM EDT Elevated liver enzymes GGT Routine 12/15/2024 3:01 PM EDT Elevated liver enzymes documented in this encounter Results * Hepatic Function Panel (01/25/2025 1:43 PM EST) Bilirubin, Total 0.3 0.0 - 1.0 mg/dL [facility] Bilirubin, Direct 0.1 0.0 - 0.5 mg/dL [facility] Aspartate Amino Transferase 21 5 - 31 U/L [facility] Alanine Aminotransferase 17 0 - 31 U/L [facility] Total Protein 7.5 6.5 - 8.0 g/dL [facility] Albumin Level 4.6 3.5 - 5.0 g/dL [facility] Alkaline Phosphatase 83 39 - 117 U/L [facility] Blood Venous blood specimen / Unknown 01/25/2025 1:43 PM EST 01/25/2025 4:07 PM EST us Caty Christopher MD LAB BLOOD ORDERABLES Fin al Result [facility] [address] [place] [phone] * Hepatitis Panel, General (12/15/2024 3:01 PM EDT) Hepatitis A IgM Nonreactive Nonreactive [facility] Comment:IgM antibodies to HICKEY V not detected; does not exclude earlyacute or recovered HAV infection. ~Hepatitis B Surface Antibody REACTIVE Nonreactive [facility] Comment:REACTIVE: > 11.99 mI U/mL Hepatitis B Core Antibody Nonreactive Nonreactive [facility] Hepatitis C Antibody Nonreactive Nonreactive [facility] Comment:Antibodies to HCV no t detected; does not exclude early acuteHCV infection. Hepatitis B Surface Ag Negative Negative [facility] Blood 12/15/2024 3:01 PM EDT 12/15/2024 4:21 PM EDT us Caty Christopher MD LAB BLOOD ORDERABLES Fin al Result Performing Organization Address [facility] de Phone Number [facility] [address] [place] [phone] * Gamma Glutamyl Transferase (GGT) (12/15/2024 3:01 PM EDT) Gamma Glutamyl Transpeptidase 23 7 - 33 U/L [facility] Blood Venous blood specimen / Unknown 12/15/2024 3:01 PM EDT 12/15/2024 4:12 PM EDT us Caty Christopher MD LAB BLOOD ORDERABLES Fin al Result Performing Organization Address [facility] Co de Phone Number [facility] [address] [place] [phone] documented in this encounter Visit Diagnoses Diagnosis Elevated liver enzymes- Primary Other nonspecific abnormal serum enzyme levels documented in this encounter Additional Health Concerns Assessment Noted Time PHQ-9 Depression Total Score: 3 09/11/ 25 9:34 AM EDT documented as of this encounter Care Teams Glass Glazier Relationship Specialty Start Date End Date Caty Christopher MD [address] [place] [phone] PCP - General Internal Medicine 09/30/23 documented as of this encounter
--- OUTSIDE RECORDS SUMMARY | 2025-01-25 22:24 | XMS_ITS | Encounter Summary ---
Author Organization [employer] Address 75 [facility] 7 [place] [address] Care Team Providers Care Crew Chief Name Role Phone Martha Cruz MD Primary Care Pro vider Caty Christopher MD Primary Care Provider + Reason for Visit * Reason Comments Med Refill Encounter Details Date Type Department Care Team (Late st Contact Info) Description 05/09/2023 Refill [facility] MED[facility] [address] [place], [place] [phone] Name, MD Oracio [address] [place], [place] [phone] Social History Tobacco Use Types Packs/Day Years [...] Visit [facility] [address] [place], [place] [phone] Caty Christopher MD [address] [place], [place] [phone] 03/22/2025 9:00 AM EST Office Visit [facility] OPTOMETRY [address] [place], [place] [phone] Brenda Garza, OD [address] [place], [place] [phone] documented as of this encounter Visit Diagnoses Not on filedocumented in this encounter Care Teams Crew Chief Relationship Specialty Start Date End Date Martha Cruz MD 230 [place], [place] [phone] PCP - General Internal Medicine 10/02/22 09/29/23 Caty Christopher MD [address] [place] [address] [phone] PCP - General Internal Medicine 09/30/23 documented as of this encounter
--- OUTSIDE RECORDS SUMMARY | 2025-01-25 22:24 | XMS_ITS | Encounter Summary ---
Author Organization [employer] Address 75 [facility] 7 [place] [address] Care Team Providers Care State Farm Agent Name Role Phone Caty Christopher MD Primary Care Provider + Reason for Visit * Reason Comments Med Refill Encounter Details Date Type Department Care Team ([facility] st Contact Info) Description 11/23/[address] [facility] MEDICINE [address] [place], [place] [phone] Caty Christopher MD 230 [place], [place] [phone] Class 2 obesity due to excess calories [...] Description 03/10/2025 10:00 AM EST Office Visit [facility] MEDICINE [address] [place] [address] Caty Christopher MD 230 [place] [address] 03/22/2025 9:00 AM EST Office Visit [facility] OPTOMETRY [address] [place] [address] Brenda Garza, OD 230 [place] [address] documented as of this encounter Visit Diagnoses Diagnosis Class 2 obesity due to excess calories without serious comorbidity with body mass index (BMI) of 35.0 to 35.9 in adult documented in this encounter Additional Health Concerns Assessment Noted Time PHQ-9 Depression Total Score: 3 09/12/19 25 9:34 AM EDT documented as of this encounter Care Teams State Farm Agent Relationship Specialty Start Date End Date Caty Christopher MD [address] [place] [phone] PCP - General Internal Medicine 09/30/23 documented as of this encounter
--- OUTSIDE RECORDS SUMMARY | 2025-01-25 22:24 | XMS_ITS | Encounter Summary ---
Author Organization [employer] Address 75 [facility] 7t [place] [address] Care Team Providers Care Head Pastry Chef Name Role Phone Caty Christopher MD Primary Care Provider + Encounter Details Date Type Department Care Team ([facility] st Contact Info) Description 12/17/2024 Results Follow-Up [facility] [address] [place] [phone] Colt Kelly MD 230 [place] [address] Influenza A (ID NOW Rapid Molecular), Influenza B (ID NOW Rapid Molecular), POCT Rapid COVID Ag, Additional followed-up results: 2 Social History Tobacco Use Types Packs/Day Years [...] Description 03/10/2025 10:00 AM EST Office Visit [facility] 230 [place] [address] Caty Christopher MD 230 [place] [address] 03/22/2025 9:00 AM EST Office Visit [facility] OPTOMETRY [address] [place] [address] Greg, Brenda, OD 230 [place] [address] documented as of this encounter Visit Diagnoses Not on filedocumented in this encounter Additional Health Concerns Assessment Noted Time PHQ-9 Depression Total Score: 3 09/12/19 25 9:34 AM EDT documented as of this encounter Care Teams Head Pastry Chef Relationship Specialty Start Date End Date Caty Christopher MD 230 [place] [address] PCP - General Internal Medicine 09/30/23 documented as of this encounter
--- OUTSIDE RECORDS SUMMARY | 2025-01-25 22:24 | XMS_ITS | Clinical Summary ---
Author Organization [facility] Address [address] [place] [phone] Phone Care Team Providers Care Manager Membership Name Role Phone Pcp, Unknown Primary Care [...] Adult Td,Tdap Booster 1980 CREATININE LEVEL 1980 LIPID PANEL 1980 TSH LEVEL 1980 DEPRESSION SCREENING 1992 SMOKING Hx and SMOKELESS TOB ACCO SCREENING 01/20/1993 HEPATITIS C SCREENING 01/20/1998 HIV ONE-TIME SCREENING (18-6 5 YEARS) 01/20/1998 PAP SMEAR 01/20/2001 MAMMOGRAM 2020 INFLUENZA VACCINE (#1) 2024 COVID-19 VACCINE ( - 2024-2 6 season) 2024 COLOGUARD 01/20/2025 COLONOSCOPY 01/20/2025 COLORECTAL CANCER SCREENING 01/20/2025 FIT TEST 01/20/2025 FOBT 01/20/2025 SIGMOIDOSCOPY 01/20/2025 VIRTUAL COLONOSCOPY 01/20/2025 HEPATITIS A VACCINES Aged Out No long [...] topic Medical Devices Not on file Insurance [employer] [place] [employer] [place] [place] [place] [place] [employer] [place] [employer] [facility] Care Teams Manager Membership Relationship Specialty Start Date End Date Pcp, Unknown PCP - General 01/18/21 Additional Source Comments The information contained in this document represents components of the legal health record. It is not the complete legal health record.[facility]
--- OUTSIDE RECORDS SUMMARY | 2025-01-25 22:24 | XMS_ITS | Encounter Summary ---
Author Organization [employer] Address 75 [facility] 7 [place] [address] Care Team Providers Care Ride Assembly Supervisor Name Role Phone Aydin Mcallister MD Primary Care Provider Unava ilable Martha Cruz MD Primary Care Pro vider Caty Christopher MD Primary Care Provider + Encounter Details Date Type Department Care Team (Latest Contact Info) Description 04/24/2021 Abstract [facility] CONVERSIONS Dental, Provider, DDS Social History [...] Description 03/10/2025 10:00 AM EST Office Visit [facility] MEDICINE 230 [place], [place] [phone] Caty Christopher MD 230 [place], [place] [phone] 03/22/2025 9:00 AM EST Office Visit [facility] OPTOMETRY [address] [place], [place] [phone] Brenda Garza OD 230 [place] [address] documented as of this encounter Visit Diagnoses Not on filedocumented in this encounter Care Teams Ride Assembly Supervisor Relationship Specialty Start Date End Date Aydin Mcallister MD PCP - General Family Medicine 12/22/20 10/01/22 Martha Cruz MD 230 [place] [address] PCP - General Internal Medicine 10/02/22 09/29/23 Caty Christopher MD [address] [place] [address] PCP - General Internal Medicine 09/30/23 documented as of this encounter
--- OUTSIDE RECORDS SUMMARY | 2025-01-25 22:24 | XMS_ITS | Encounter Summary ---
Author Organization [employer] Address 75 [facility] 7 [place] [address] Care Team Providers Care Tallier Name Role Phone Caty Christopher MD Primary Care Provider + Reason for Visit * Reason Onset Date Comments Med Refill 01/25/2025 Encounter Details Date Type Department Care Team ([facility] st Contact Info) Description 01/25/2025 Telephone [facility] MED[facility]INE [address] [place], [place] [phone] Caty Christopher MD 230 [place], [place] [phone] Med Refill Social History Tobacco Use Types [...] * Telephone Encounter - Lesley Cates - 01/25/2025 1:49 PM EST Pt walked in requesting to speak with pcp about zepbound refill. [place] and would like two additional refills of zepbound medication for February as the refills she has now are only enough to finish January. documented in this encounter Plan of Treatment Upcoming Encounters Date Type Department Care Team (Late st Contact Info) Description 03/10/2025 10:00 AM EST Office Visit [facility] [address] [place] [address] Caty Christopher MD 230 [place], [place] [phone] 03/22/2025 9:00 AM EST Office Visit [facility] OPTOMETRY [address] [place] [address] Brenda Garza, OD 230 [place] [address] documented as of this encounter Visit Diagnoses Not on filedocumented in this encounter Additional Health Concerns Assessment Noted Time PHQ-9 Depression Total Score: 3 09/12/19 25 9:34 AM EDT documented as of this encounter Care Teams Tallier Relationship Specialty Start Date End Date Caty Christopher MD [address] [place] [phone] PCP - General Internal Medicine 09/30/23 documented as of this encounter
--- OUTSIDE RECORDS SUMMARY | 2025-01-25 22:24 | XMS_ITS | Encounter Summary ---
Author Organization [employer] Address 75 [facility] 7 [place] [address] Care Team Providers Care Loader Helper Name Role Phone Martha Cruz MD Primary Care Pro vider Caty Christopher MD Primary Care Provider + Encounter Details Date Type Department Care Team (Late st Contact Info) Description 11/09/2022 Orders Only [facility] MED[facility]INE [address] [place] [address] [phone] ProviderAlvaro MD Social History Tobacco Use Types [...] Description 03/10/2025 10:00 AM EST Office Visit [facility] [address] [place] [address] [phone] Caty Christopher MD [address] [place] [address] [phone] 03/22/2025 9:00 AM EST Office Visit [facility] OPTOMETRY [address] [place] [address] Brenda Garza, OD 230 [place] [address] documented as of this encounter Procedures Procedure Name Priority Date/Time Associated Diagnosis Comments HM PAP/HPV Routine 07/27/2021 documented in this encounter Results * Hm Pap Smear (07/27/2021) Historical Provider HEALTH MAINTENANCE Final Result documented in this encounter Visit Diagnoses Not on filedocumented in this encounter Care Teams Loader Helper Relationship Specialty Start Date End Date Martha Cruz MD 230 [place] [phone] PCP - General Internal Medicine 10/02/22 09/29/23 Caty Christopher MD 230 [place] [address] PCP - General Internal Medicine 09/30/23 documented as of this encounter
--- OUTSIDE RECORDS SUMMARY | 2025-01-25 22:24 | XMS_ITS | Encounter Summary ---
Author Organization [employer] Address 75 [facility] 7 [place] [address] Care Team Providers Care Diet Tech Name Role Phone Caty Christopher MD Primary Care Provider + Reason for Visit * Reason Comments Med Refill Encounter Details Date Type Department Care Team ([facility] st Contact Info) Description 10/20/2024 Refill [facility] [address] [place], [place] [phone] Caty Christopher MD [address] [place], [place] [phone] Hypothyroidism, unspecified type Social History Tobacco Use [...] Description 03/10/2025 10:00 AM EST Office Visit [facility] [address] [place] [address] Caty Christopher MD [address] [place] [address] 03/22/2025 9:00 AM EST Office Visit [facility] OPTOMETRY [address] [place] [address] Greg, Brenda, OD 230 [place] [address] documented as of this encounter Visit Diagnoses Diagnosis Hypothyroidism, unspecified type documented in this encounter Additional Health Concerns Assessment Noted Time PHQ-9 Depression Total Score: 3 09/12/19 25 9:34 AM EDT documented as of this encounter Care Teams Diet Tech Relationship Specialty Start Date End Date Caty Christopher MD [address] [place] [address] PCP - General Internal Medicine 09/30/23 documented as of this encounter
== END 2025-01-25 13:39 | disposition home or self-care (01) ==
LOC: HO.HHCL 13:38
PROVIDERS: PCP Internal Medicine; Visit Provider Internal Medicine
DX: R74.8 Abnormal levels of other serum enzymes (principal)
CPT/HCPCS: 36415; 80076

== ENCOUNTER 2025-01-29 16:36 | Outpatient (REF) | payer OTHER, SELFPAY ==
--- OUTSIDE RECORDS SUMMARY | 2025-01-29 10:40 | XMS_ITS | Encounter Summary ---
Author Organization [employer] Address 75 [facility] 7 [place] [address] Care Team Providers Care Newspaper Carriers Supervisor Name Role Phone Caty Christopher MD Primary Care Provider + Reason for Visit * Reason Comments UTI Encounter Details Date Type Department Care Team ([facility] Contact Info) Description 01/29/2025 10:40 AM EST Office Visit [facility] [address] [place] [address] [phone] Colt Kelly MD [address] [place] [address] [phone] Dysuria Social History Tobacco Use Types Packs/Day Years [...] Sign Reading Time Taken Comments Blood Pressure 123/72 01/29/2025 10:47 AM EST Pulse 95 01/29/2025 10:47 AM EST Temperature 36.6 C (97.8 F) 01/29/2025 10:47 AM EST Respiratory Rate 17 01/29/2025 10:47 AM EST Oxygen Saturation 96% 01/29/2025 10:47 AM EST Inhaled Oxygen Concentration - - Weight 78.7 kg (173 lb 6.4 oz) 01/29/2025 10:47 AM EST Height 165.1 cm (5' 5 ) 01/29/2025 10:47 AM EST Body Mass Index 28.86 01/29/2025 10:47 AM EST documented in this encounter Progress Notes * Colt Kelly MD - 01/29/2025 10:40 AM EST Subjective History was provided by the patient. Capri Snider is a 45 y.o. female who presents for evaluation of dysuria and back pain for 1 week. Denies urinary urgency or frequency. Denies F/C. Mild nausea. Denies vomiting or diarrhea. LMP 2 weeks ago. Denies abdominal pain. Objective Vitals: 01/29/25 1047 BP: 123/72 BP Location: Left arm Patient Position: Sitting BP Cuff Size: Adult Pulse: 95 Resp: 17 Temp: 97.8 ??F (36.6 ??C) TempSrc: Temporal SpO2: 96% Weight: 173 lb 6.4 oz (78.7 kg) Height: 5' 5 (1.651 m) Physical Exam Vitals reviewed. Constitutional: General: She is not in acute distress. Appearance: Normal appearance. She is not ill-appearing, toxic-appearing or diaphoretic. HENT: Head: Normocephalic and atraumatic. Right Ear: External ear normal. Left Ear: External ear normal. Nose: Nose normal. Mouth/Throat: Pharynx: Oropharynx is clear. Eyes: Extraocular Movements: Extraocular movements intact. Conjunctiva/sclera: Conjunctivae normal. Cardiovascular: Rate and Rhythm: Normal rate and regular rhythm. Heart sounds: Normal heart sounds. Pulmonary: Effort: Pulmonary effort is normal. No respiratory distress. Breath sounds: Normal breath sounds. No wheezing, rhonchi or rales. Chest: Chest wall: No tenderness. Abdominal: General: Abdomen is flat. Bowel sounds are normal. There is no distension. Palpations: Abdomen is soft. Tenderness: There is no abdominal tenderness. There is no right CVA tenderness, left CVA tenderness, guarding or rebound. Musculoskeletal: General: Normal range of motion. Cervical back: Neck supple. Skin: General: Skin is warm and dry. Neurological: General: No focal deficit present. Mental Status: She is alert and oriented to person, place, and time. Psychiatric: Mood and Affect: Mood normal. Behavior: Behavior normal. Office Visit on 01/29/2025 Component Date Value Ref Range Status Color, UA 01/29/2025 Yellow Final Clarity, UA 01/29/2025 Clear Final Glucose, UA 01/29/2025 Negative Final Bilirubin, UA 01/29/2025 Negative Final Ketones, UA 01/29/2025 Negative Final Spec Grav, UA 01/29/2025 1.020 Final Blood, UA 01/29/2025 Positive (A) Negative, None Detected Final small pH, UA 01/29/2025 5.5 Final Protein, UA 01/29/2025 Negative Final Urobilinogen, UA 01/29/2025 0.2 Final Leukocytes, UA 01/29/2025 Negative Negative, Rare, Trace, 1+ (17), 2+ (35), 3+ (70), Trace (15) Final Nitrite, UA 01/29/2025 Negative Negative, None Detected Final Capri was seen today for uti. Diagnoses and all orders for this visit: Dysuria - POCT urinalysis dipstick manually resulted (CPT 09866) - Culture, Urine, Routine - sulfamethoxazole-trimethoprim (Bactrim DS) 800-160 MG tablet; Take 1 tablet by mouth 2 times daily for 3 days. Patient with a clinical presentation of acute UTI No clinical evidence of acute abdomen or pyelonephritis Will send out UCx and start antibiotic medication (Bactrim DS for 3 days) Potential adverse effects of the medication reviewed Probiotic use discussed Allergies reviewed Discussed strategies to prevent future infections Advised to contact the clinic if no improvement of symptoms Indications for UC/ER use reviewed documented in this encounter Plan of Treatment Upcoming Encounters Date Type Department Care Team (Late st Contact Info) Description 03/10/2025 10:00 AM EST Office Visit [facility] [address] [place] [address] Caty Christopher MD 230 [place] [address] 03/22/2025 9:00 AM EST Office Visit [facility] OPTOMETRY [address] [place] [address] Greg, Brenda, OD [address] [place] [address] Scheduled Orders Name Type Priority Associated Diagnoses Orde r Schedule Culture, Urine, Routine Microbiology Routine Dysuria Ordered: 01/29/2025 documented as of this encounter Procedures Procedure Name Priority Date/Time Associated Diagnosis Comments POCT URINALYSIS DIPSTICK Routine 01/29/2025 10:57 AM EST Dysuria documented in this encounter Results * (ABNORMAL) POCT urinalysis dipstick manually resulted (CPT 54504) (01/29/2025 10:57 AM EST) Color, UA Yellow Clarity, UA Clear Glucose, UA Negative Bilirubin, UA Negative Ketones, UA Negative Spec Grav, UA 1.020 Blood, UA Positive(A) Negative, None Detected Comment:small pH, UA 5.5 Protein, UA Negative Urobilinogen, UA 0.2 Leukocytes, UA Negative Negative, Rare, Trace, 1+ (17), 2+ (35), 3+ (70), Trace (15) Nitrite, UA Negative Negative, None Detected Urine (Urine, Random) 01/29/2025 10:57 AM EST Colt Kelly MD POINT OF CARE TEST ENTER/EDIT OR DERABLES Final Result documented in this encounter Visit Diagnoses Diagnosis Dysuria documented in this encounter Additional Health Concerns Assessment Noted Time PHQ-9 Depression Total Score: 3 09/11/ 25 9:34 AM EDT documented as of this encounter Care Teams Newspaper Carriers Supervisor Relationship Specialty Start Date End Date Caty Christopher MD [address] [place] [phone] PCP - General Internal Medicine 09/30/23 documented as of this encounter
--- OUTSIDE RECORDS SUMMARY | 2025-01-29 20:43 | XMS_ITS | Encounter Summary ---
Author Organization [employer] Address 75 [facility] 7 [place] [address] Care Team Providers Care Satellite Dish Technician Name Role Phone Caty Christopher MD Primary Care Provider + Reason for Visit * Reason Comments Med Refill Encounter Details Date Type Department Care Team ([facility] st Contact Info) Description 10/20/2024 Refill [facility] MEDICINE [address] [place], [place] [phone] Caty Christopher MD 230 [place], [place] [phone] Hypothyroidism, unspecified type Social History Tobacco Use [...] Description 03/10/2025 10:00 AM EST Office Visit [facility] MED[facility] [address] [place] [address] Caty Christopher MD [address] [place] [address] 03/22/2025 9:00 AM EST Office Visit [facility] OPTOMETRY [address] [place] [address] Greg, Brenda, OD 230 [place] [address] documented as of this encounter Visit Diagnoses Diagnosis Hypothyroidism, unspecified type documented in this encounter Additional Health Concerns Assessment Noted Time PHQ-9 Depression Total Score: 3 09/12/19 25 9:34 AM EDT documented as of this encounter Care Teams Satellite Dish Technician Relationship Specialty Start Date End Date Caty Christopher MD [address] [place] [address] PCP - General Internal Medicine 09/30/23 documented as of this encounter
--- OUTSIDE RECORDS SUMMARY | 2025-01-29 20:43 | XMS_ITS | Clinical Summary ---
Author Organization [employer] Address [address] [facility] 7t [place] [address] Care Team Providers Care Heat Treat Puller Name Role Phone Cayt Christopher MD Primary Care Provider + Allergies [...] 24 Active ergocalciferol (Vitamin D2) 1.25 MG (30695 UT) capsule Take 1 capsule (1.25 mg) [...] EVERY DAY BEFORE BREAKFAST 90 tablet 1 5 12:08 PM EST 01/13/20 25 Active Tirzepatide-We ight Management (Zepbound) 15 MG/0.5ML solution auto-injectorI ndications:Obe sity (BMI 30-39.9) Inject 0.5 mL (15 mg) under the skin 1 (one) time per week. 2 mL 5 01/27/20 25 Active sulfamethoxazo le-trimethopri m (Bactrim DS) 800-160 MG tabletIndicati ons:Dysuria Take 1 tablet by mouth 2 times daily for 3 days. 6 tablet 5 12:06 PM EST 01/30/20 25 025 Active levothyroxine (Synthroid, Levoxyl) 88 MCG tabletIndicati ons:Hypothyroi dism, unspecified type Take 1 tablet (88 mcg) by mouth before breakfast. 30 tablet 2 10/22/19 25 025 Discontinued(Re order (will not trigger notification to Pharmacy)) Tirzepatide-We ight Management (Zepbound) 15 MG/0.5ML solution auto-injectorI ndications:Obe sity (BMI 30-39.9) Inject 0.5 mL (15 mg) under the skin 1 (one) time per week. 2 mL 3 5 12:08 PM EST 12/11/19 25 025 Discontinued(Re order (will not trigger [...] PM EST): She has been to a authorizer in the past . I will prescribe [...] Plan (03/26/2024 9:57 AM EST): Seen by Ring Maker, and recommended warm compresses and continue artificial [...] Encounters Date Type Department Care Team Description 01/29/2025 10:40 AM EST Office Visit [facility] [address] [place] [phone] Colt Kelly MD Dysuria 01/29/2025 Travel 01/25/2025 Refill [facility] [address] [place] [phone] Caty Christopher MD Obesity (BMI 30-39.9) 01/12/[address] [place] [address] [address] Caty Christopher MD Hypothyroidism, unspecified type 12/17/2024 Results Follow-Up [facility] [address] [address] Colt Kelly MD Influenza A (ID NOW Rapid Molecular), Influenza B (ID NOW Rapid Molecular), POCT Rapid COVID Ag, Additional followed-up results: 2 12/10/2024 9:00 AM EDT Telemedicine [address] [place] [address] [address] Caty Christopher MD Obesity (BMI 30-39.9) (Primary Dx); Class 2 obesity due to excess calories without serious comorbidity with body mass index (BMI) of 35.0 to 35.9 in adult 12/10/2024 Travel 12/09/[address] [place] [address] [address] Caty Christopher MD CHART PREP 11/23/[address] [place] [address] [phone] Caty Christopher MD Class 2 obesity due to excess calories without serious comorbidity with body mass index (BMI) of 35.0 to 35.9 in adult 11/19/2024 9:00 AM EDT Office [facility] [address] [phone] Colt Kelly MD Traveler's diarrhea (Primary Dx); Viral URI 11/19/2024 Travel 11/16/2024 Telephone [facility] [address] [place] [phone] Caty Christopher MD Med Refill from Last 3 Months Immunizations Immunization Administration [...] Mass Index 28.86 01/29/2025 10:47 AM EST Plan of Treatment Upcoming Encounters Date Type Department Care Team (Late st Contact Info) Description 03/10/2025 10:00 AM EST Office Visit [facility] [address] [place] [address] Caty Christopher MD [address] [place] [address] 03/22/2025 9:00 AM EST Office Visit [facility] [address] [place] [address] Brenda Garza, OD [address] [place] [address] Health Maintenance Due Date Last Done Comments [...] Additional history exists Disability Screening 09/11/2025 09/11/2024 Alcohol/Substance Use Screening 12/10/2025 12/10/2024 SDOH Screening 12/10/2025 12/10/2024 Tobacco Screening 01/29/2026 01/29/2025 Cervical Cancer Screening 07/27/2026 HPV/Cotest 07/27/2026 07/27/2021, [...] DIPSTICK Routine 01/29/2025 10:57 AM EST Dysuria HEPATIC FUNCTION PANEL Routine 01/25/2025 1:43 PM [...] Recently Relevant to Health Maintenance Results * (ABNORMAL) POCT urinalysis dipstick manually resulted (CPT 40343) (01/29/2025 10:57 AM EST) Color, UA Yellow [...] TEST ENTER/EDIT OR DERABLES Final Result * Hepatic Function Panel (01/25/2025 1:43 PM EST) Bilirubin, Total 0.3 0.0 - 1.0 mg/dL [facility] Bilirubin, Direct 0.1 0.0 - 0.5 mg/dL [facility] Aspartate Amino Transferase 21 5 - 31 U/L [facility] Alanine Aminotransferase 17 0 - 31 U/L [facility] Total Protein 7.5 6.5 - 8.0 g/dL [facility] Albumin Level 4.6 3.5 - 5.0 g/dL [facility] Alkaline Phosphatase 83 39 - 117 U/L [facility] Blood Venous blood specimen / Unknown 01/25/2025 1:43 PM EST 01/25/2025 4:07 PM EST Caty Christopher MD LAB BLOOD ORDERABLES Fin al Result Performing Organization Address [facility]/ZIP Co de Phone Number [facility] [address] [place] [address] [phone] * Hepatitis Panel, General (12/15/2024 3:01 PM EDT) Hepatitis A IgM Nonreactive Nonreactive [facility] Comment:IgM antibodies to HICKEY V not detected; does not exclude earlyacute or recovered HAV infection. ~Hepatitis B Surface Antibody REACTIVE Nonreactive [facility] Comment:REACTIVE: > 11.99 mI U/mL Hepatitis B Core Antibody Nonreactive Nonreactive [facility] Hepatitis C Antibody Nonreactive Nonreactive [facility] Comment:Antibodies to HCV no t detected; does not exclude early acuteHCV infection. Hepatitis B Surface Ag Negative Negative [facility] Blood 12/15/2024 3:01 PM EDT 12/15/2024 4:21 PM EDT Caty Christopher MD LAB BLOOD ORDERABLES Fin al Result Performing Organization Address [facility]/ZIP Co de Phone Number [facility] [address] [place] [address] [phone] * Hepatitis A IgM (12/15/2024 3:01 PM EDT) Hepatitis A IgM Nonreactive Nonreactive [facility] Comment:IgM antibodies to HICKEY V not detected; does not exclude earlyacute or recovered HAV infection. Blood Venous blood specimen / Unknown 12/15/2024 3:01 PM EDT 12/15/2024 4:21 PM EDT Colt Kelly MD LAB BLOOD ORDERABLES Final Resul t Performing Organization Address [facility] Co de Phone Number [facility] [address] [place] [phone] * Gamma Glutamyl Transferase (GGT) (12/15/2024 3:01 PM EDT) Gamma Glutamyl Transpeptidase 23 7 - 33 U/L [facility] Blood Venous blood specimen / Unknown 12/15/2024 3:01 PM EDT 12/15/2024 4:12 PM EDT Caty Christopher MD LAB BLOOD ORDERABLES Fin al Result Performing Organization Address [facility] de Phone Number [facility] [address] [place] [phone] * Influenza A (ID NOW Rapid Molecular) (11/19/2024 9:20 AM EDT) Influenza A Negative Negative, Indeterminate [facility] Swab 11/19/2024 9:20 AM EDT Colt Kelly MD POINT OF CARE TEST ENTER/EDIT OR DERABLES Final Result Performing Organization Address [facility] Co de Phone Number [facility] [address] [place] [phone] * Influenza B (ID NOW Rapid Molecular) (11/19/2024 9:19 AM EDT) Influenza B Negative Negative, Indeterminate [facility] Swab 11/19/2024 9:19 AM EDT Colt Kelly MD POINT OF CARE TEST ENTER/EDIT OR DERABLES Final Result Performing Organization Address [facility] Co de Phone Number [facility] [address] [place] [address] [phone] * POCT Rapid COVID Ag (11/19/2024 9:13 AM EDT) [facility] Rapid COVID Ag Negative Swab 11/19/2024 9:13 AM EDT us Colt Kelly MD POINT OF CARE TEST ENTER/EDIT OR DERABLES Final Result * POCT rapid strep A manually resulted (11/19/2024 9:12 AM EDT) [facility] Rapid Strep A Screen Negative Negative, None Detected Swab 11/19/2024 9:12 AM EDT us Colt Kelly MD POINT OF CARE TEST ENTER/EDIT OR DERABLES Final Result * (ABNORMAL) Lipid Panel with Reflex to Direct LDL (09/14/2024 9:39 AM EDT) [facility] Triglycerides 105 <150 mg/dL [facility] Comment:Desirable Triglyceri de: less than 150 mg/dLBorderline High Triglyceride 150-199 mg/dLHigh Triglyceride: 200-499 mg/dLVery High Triglyceride: greater than or equal to 5OO mg/dL Cholesterol 146 <200 mg/dL [facility] Comment:Desirable Cholestero l: less than 200 mg/dLBorderline High Cholesterol: 200-239 mg/dLHigh Cholesterol: greater than 239 mg/dL LDL Cholesterol Calculated 86 <100 mg/dL [facility] Comment:Desirable LDL: less than 100 mg/dLNear Optimal/Above Optimal LDL: 110- 129 mg/dLBorderline High LDL: 130-159 mg/dLHigh LDL: 160-189 mg/dLVery High LDL: greater than or equal to 190 mg/dL HDL Cholesterol 39(L) >40 mg/dL [facility] Comment:Desirable HDL: great er than 40 mg/dL Note: This HDL assay may give artificially low results in patients with liver disease. Blood 09/14/2024 9:39 AM EDT 09/14/2024 11:31 AM EDT Caty Christopher MD LAB BLOOD ORDERABLES Fin al Result Performing Organization Address City/[facility]/ZIP Co de Phone Number [facility] [address] [place] [address] [phone] * POCT HGB A1C (09/11/2024 9:16 [...] E6/E7 rflx Not Detected Not Detected [facility] Comment: Methodology: Vice President Regulatory-Mediated Amplification This assay detects E6/E7 viral messenger RNA (mRNA) from 14 high-risk HPV types (16,18,31,33,35,39,45,51,52,56,58,59,66,68). Cervical sources are required for HPV testing. If a vaginal source from a patient who has had a total hysterectomy with removal of cervix was submitted, please contact the testing laboratory for alternative testing options. For additional information, please refer to http://[email or web address].FileThis/faq/ZIF633y3 (This link if provided for information/ educational purposes only.) THIS TEST WAS PERFORMED AT: [facility] [address] [place] [address] [address],[place] [address] DEJA ERIC MD 07/27/2021 10:1 3 AM EDT Keiko Iraheta HISTORICAL/NON ORDERABLE LABS Fi nal Result [facility] [address] [place] [id number] * Hm Pap Smear (07/27/2021) us Historical Provider HEALTH MAINTENANCE Final Result * Mammography Report 1 (06/26/2021 8:15 AM EDT) Anatomical Region Laterality Modality Breast Bilateral Mammography 06/26/2021 8:15 AM EDT Narrative 06/27/2021 8:07 AM EDT Refer to the Notes tab for result details [facility] Procedure: Mammography Report 1 Procedure Note Provider, Alvaro, - 05/13/2022 Refer to the Notes tab for result details [facility] Procedure: Mammography Report 1 Aydin Mcallister MD IMG BI PROCEDURES Final Resu lt from Last 3 Months or Most Recently Relevant to Health Maintenance [place] [address] [place] [address] 3 Care Teams Heat Treat Puller Relationship Specialty Start Date End Date Caty Christopher MD [address] [place] [phone] PCP - General Internal Medicine 09/30/23
--- OUTSIDE RECORDS SUMMARY | 2025-01-29 20:43 | XMS_ITS | Clinical Summary ---
Author Organization [facility] Address [address] [place] [phone] Phone Care Team Providers Care Fuels Sales Representative Name Role Phone Pcp, Unknown Primary Care [...] topic Medical Devices Not on file Insurance Disruptor Beam Disruptor Beam [place] [employer] [facility] Care Teams Fuels Sales Representative Relationship Specialty Start Date End Date Pcp, Unknown PCP - General 01/18/21 Additional Source Comments The information contained in this document represents components of the legal health record. It is not the complete legal health record.[facility]
--- OUTSIDE RECORDS SUMMARY | 2025-01-29 20:43 | XMS_ITS | Encounter Summary ---
Author Organization [employer] Address 75 [facility] 7t [place] [address] Care Team Providers Care Mixing Machine Attendant Name Role Phone Caty Christopher MD Primary Care Provider + Encounter Details Date Type Department Care Team (Latest Contact Info) Description 01/29/2025 Travel Social History Tobacco Use Types Packs/Day [...] Description 03/10/2025 10:00 AM EST Office Visit [facility] [address] [place] [address] Caty Christopher MD [address] [place] [address] 03/22/2025 9:00 AM EST Office Visit [facility] [address] [place] [address] Greg, Brenda, OD [address] [place] [address] documented as of this encounter Visit Diagnoses Not on filedocumented in this encounter Additional Health Concerns Assessment Noted Time PHQ-9 Depression Total Score: 3 09/12/19 25 9:34 AM EDT documented as of this encounter Care Teams Mixing Machine Attendant Relationship Specialty Start Date End Date Caty Christopher MD [address] [place] [phone] PCP - General Internal Medicine 09/30/23 documented as of this encounter
--- OUTSIDE RECORDS SUMMARY | 2025-01-29 20:43 | XMS_ITS | Encounter Summary ---
Author Organization [employer] Address 75 [facility] 7 [place] [address] Care Team Providers Care Paper Goods Machine Set Up Operator Name Role Phone Caty Christopher MD Primary Care Provider + Reason for Visit * Reason Onset Date Comments Results 09/22/2024 Encounter Details Date Type Department Care Team ([facility] st Contact Info) Description 09/22/2024 Results Follow-Up [facility] [address] [place], [place] [phone] Caty Christopher MD [address] [place], [place] [phone] Lipid Panel with Reflex to Direct LDL, [...] 10:45 AM EST TC placed to patient [phone] to inform patient it is time to return to the lab to repeat LFT testing. Patient verbalized understanding. RN has placed order. Patient to be contacted with results once available. Patient to f/u PRN. * Telephone Encounter - Kathe Frank RN - 09/23/2024 1:12 PM EDT TC returned to patient [phone] in regards to below message. Patient verbalized [...] AM EDT TC x2 placed to patient [phone] in regards to below message. Patient did not answer, RN left requesting CB to red team nurses. TC x2 placed to [phone] patients answered and stated he is not with the patient at this time. is not on HIPAA, RN advised to inform patient to return call to [facility] at her convenience. Patient to [...] 4:21 PM EDT TC placed to patient [phone] in regards to below message. Patient did not answer, RN left requesting CB to red team nurses. TC placed to [phone] however also no answer, RN left VM [...] 10:00 AM EST Office Visit [facility] [address] [place] [address] [phone] Caty Christopher MD [address] [place], [place] [phone] 03/22/2025 9:00 AM EST Office Visit [facility] [address] [place], [place] [phone] Brenda Garza, OD [address] [place] [address] documented as of this encounter Procedures Procedure [...] Bilirubin, Total 0.3 0.0 - 1.0 mg/dL [facility] Bilirubin, Direct 0.1 0.0 - 0.5 mg/dL [facility] Aspartate Amino Transferase 21 5 - 31 U/L [facility] Alanine Aminotransferase 17 0 - 31 U/L [facility] Total Protein 7.5 6.5 - 8.0 g/dL [facility] Albumin Level 4.6 3.5 - 5.0 g/dL [facility] Alkaline Phosphatase 83 39 - 117 U/L [facility] Blood Venous blood specimen / Unknown 01/25/2025 1:43 PM EST 01/25/2025 4:07 PM EST us Caty Christopher MD LAB BLOOD ORDERABLES Fin al Result [facility] [address] [place] [phone] [phone] * Hepatitis Panel, General (12/15/2024 3:01 PM EDT) Hepatitis A IgM Nonreactive Nonreactive [facility] Comment:IgM antibodies to HICKEY V not detected; does not exclude earlyacute or recovered HAV infection. ~Hepatitis B Surface Antibody REACTIVE Nonreactive [facility] Comment:REACTIVE: > 11.99 mI U/mL Hepatitis B Core Antibody Nonreactive Nonreactive [facility] Hepatitis C Antibody Nonreactive Nonreactive [facility] Comment:Antibodies to HCV no t detected; does not exclude early acuteHCV infection. Hepatitis B Surface Ag Negative Negative [facility] Blood 12/15/2024 3:01 PM EDT 12/15/2024 4:21 PM EDT us Caty Christopher MD LAB BLOOD ORDERABLES Fin al Result Performing Organization Address [facility] de Phone Number [facility] [address] [place] [phone] * Gamma Glutamyl Transferase (GGT) (12/15/2024 3:01 PM EDT) Gamma Glutamyl Transpeptidase 23 7 - 33 U/L [facility] Blood Venous blood specimen / Unknown 12/15/2024 3:01 PM EDT 12/15/2024 4:12 PM EDT us Caty Christopher MD LAB BLOOD ORDERABLES Fin al Result Performing Organization Address [facility] Co de Phone Number [facility] [address] [place] [phone] documented in this encounter Visit Diagnoses Diagnosis Elevated liver enzymes- Primary Other nonspecific abnormal serum enzyme levels documented in this encounter Additional Health Concerns Assessment Noted Time PHQ-9 Depression Total Score: 3 09/11/ 25 9:34 AM EDT documented as of this encounter Care Teams Paper Goods Machine Set Up Operator Relationship Specialty Start Date End Date Caty Christopher MD [address] [place] [phone] PCP - General Internal Medicine 09/30/23 documented as of this encounter
--- OUTSIDE RECORDS SUMMARY | 2025-01-29 20:43 | XMS_ITS | Encounter Summary ---
Author Organization [employer] Address 75 [facility] 7 [place] [address] Care Team Providers Care Western Philosophy Professor Name Role Phone Martha Cruz MD Primary Care Pro vider Caty Christopher MD Primary Care Provider + Reason for Visit * Reason Comments Med Refill Encounter Details Date Type Department Care Team (Late st Contact Info) Description 05/09/2023 Refill [facility] [address] [place], [place] [phone] Name, MD Oracio [address] [place], [place] [phone] Social History Tobacco Use Types Packs/Day Years [...] Description 03/10/2025 10:00 AM EST Office Visit [facility] [address] [place], [place] [phone] Caty Christopher MD [address] [place], [place] [phone] 03/22/2025 9:00 AM EST Office Visit [facility] [address] [place], [place] [phone] Brenda Garza, OD [address] [place], [place] [phone] documented as of this encounter Visit Diagnoses Not on filedocumented in this encounter Care Teams Western Philosophy Professor Relationship Specialty Start Date End Date Martha Cruz MD [address] [place], [place] [phone] PCP - General Internal Medicine 10/02/22 09/29/23 Caty Christopher MD [address] [place] [address] [phone] PCP - General Internal Medicine 09/30/23 documented as of this encounter
--- OUTSIDE RECORDS SUMMARY | 2025-01-29 20:43 | XMS_ITS | Encounter Summary ---
Author Organization [employer] Address 75 [facility] 7 [place] [address] Care Team Providers Care Marking Clerk Name Role Phone Aydin Mcallister MD Primary Care Provider Unava ilable Martha Cruz MD Primary Care Pro vider Caty Christopher MD Primary Care Provider + Encounter Details Date Type Department Care Team (Latest Contact Info) Description 04/24/2021 Abstract [facility] CONVERSIONS Dental, Provider, DDS Social History [...] 10:00 AM EST Office Visit [facility] [address] [place], [place] [phone] Caty Christopher MD 230 [place], [place] [phone] 03/22/2025 9:00 AM EST Office Visit [facility] [address] [place], [place] [phone] Brenda Garza OD [address] [place] [address] documented as of this encounter Visit Diagnoses Not on filedocumented in this encounter Care Teams Marking Clerk Relationship Specialty Start Date End Date Aydin Mcallister MD PCP - General Family Medicine 12/22/20 10/01/22 Martha Cruz MD [address] [place] [address] PCP - General Internal Medicine 10/02/22 09/29/23 Caty Christopher MD [address] [place] [phone] PCP - General Internal Medicine 09/30/23 documented as of this encounter
--- OUTSIDE RECORDS SUMMARY | 2025-01-29 20:43 | XMS_ITS | Encounter Summary ---
Author Organization [employer] Address [address] [facility] 7 [place] [address] Care Team Providers Care Line Tender Name Role Phone Martha Cruz MD Primary Care Pro vider Caty Christopher MD Primary Care Provider + Encounter Details Date Type Department Care Team (Late st Contact Info) Description 11/09/2022 Orders Only [facility] [address] [place] [address] [phone] ProviderAlvaro MD Social History Tobacco Use Types [...] 10:00 AM EST Office Visit [facility] [address] [place] [address] [phone] Caty Christopher MD [address] [place] [address] [phone] 03/22/2025 9:00 AM EST Office Visit [facility] [address] [place] [address] Brenda Garza, OD [address] [place] [address] documented as of this encounter Procedures Procedure Name Priority Date/Time Associated Diagnosis Comments HM PAP/HPV Routine 07/27/2021 documented in this encounter Results * Hm Pap Smear (07/27/2021) Historical Provider HEALTH MAINTENANCE Final Result documented in this encounter Visit Diagnoses Not on filedocumented in this encounter Care Teams Line Tender Relationship Specialty Start Date End Date Martha Cruz MD [address] [place] [address] PCP - General Internal Medicine 10/02/22 09/29/23 Caty Christopher MD [address] [place] [address] PCP - General Internal Medicine 09/30/23 documented as of this encounter
--- OUTSIDE RECORDS SUMMARY | 2025-01-29 20:43 | XMS_ITS | Encounter Summary ---
Author Organization [employer] Address 75 [facility] 7 [place] [address] Care Team Providers Care Cow Tender Name Role Phone Caty Christopher MD Primary Care Provider + Reason for Visit * Reason Comments Med Refill Encounter Details Date Type Department Care Team ([facility] st Contact Info) Description 11/23/2024 Refill [facility] MEDICINE [address] [place], [place] [phone] Caty Christopher MD [address] [place], [place] [phone] Class 2 obesity due to excess calories [...] Description 03/10/2025 10:00 AM EST Office Visit [facility] MEDICINE [address] [place] [address] Caty Christopher MD [address] [place] [address] 03/22/2025 9:00 AM EST Office Visit [facility] OPTOMET[facility] [address] [place] [address] Brenda Garza, OD [address] [place] [address] documented as of this encounter Visit Diagnoses Diagnosis Class 2 obesity due to excess calories without serious comorbidity with body mass index (BMI) of 35.0 to 35.9 in adult documented in this encounter Additional Health Concerns Assessment Noted Time PHQ-9 Depression Total Score: 3 09/12/19 25 9:34 AM EDT documented as of this encounter Care Teams Cow Tender Relationship Specialty Start Date End Date Caty Christopher MD [address] [place] [phone] PCP - General Internal Medicine 09/30/23 documented as of this encounter
--- OUTSIDE RECORDS SUMMARY | 2025-01-29 20:43 | XMS_ITS | Encounter Summary ---
Author Organization [employer] Address [address] [facility] 7 [place] [address] Care Team Providers Care Community Development Manager Name Role Phone Caty Christopher MD Primary Care Provider + Reason for Visit * Reason Onset Date Comments Med Refill 01/25/2025 Encounter Details Date Type Department Care Team (Late st Contact Info) Description 01/25/2025 Refill [facility] MEDICINE [address], [place] [phone] Caty Christopher MD [address] [place], [place] [phone] Obesity (BMI 30-39.9) Social History Tobacco Use Types Packs/Day Years [...] Addendum Note - Kathe Frank RN - 01/26/2025 9:51 AM ESTAddended by: KATHE FRANK on: 01/26/2025 09:51 AM Modules accepted: Orders * Telephone Encounter - Kathe Frank RN - 01/26/2025 9:44 AM EST TC placed to patient [phone] in regards to below message. Patient reports she is leaving out of country 03[place]11[place]25-04[place]23[place]25 and reports she would like to receive enough zepbound to cover her trip. Patient advised RN would call the pharmacy to inform and they will contact the patients insurance as needed to obtain override and patient will be contacted once ready for p/u closer to her departure date. TC placed to [facility] pharmacy who reports they will need a refill on prescription and they will attemptto fill medication or 3 months in January however otherwise they will contact the insurance in February to request an override for early refill for coverage of medication while out of the country. * Telephone Encounter - Lesley Cates - [...] Description 03/10/2025 10:00 AM EST Office Visit [facility] MEDICINE [address] [place] [address] Caty Christopher MD [address] [place] [address] 03/22/2025 9:00 AM EST Office Visit [facility] OPTOMETRY [address] [place] [address] Greg, Brenda, OD [address] [place] [address] documented as of this encounter Visit Diagnoses Diagnosis Obesity (BMI 30-39.9) documented in this encounter Additional Health Concerns Assessment Noted Time PHQ-9 Depression Total Score: 3 09/11/ 25 9:34 AM EDT documented as of this encounter Care Teams Community Development Manager Relationship Specialty Start Date End Date Caty Christopher MD [address] [place] [address] PCP - General Internal Medicine 09/30/23 documented as of this encounter
--- OUTSIDE RECORDS SUMMARY | 2025-01-29 20:43 | XMS_ITS | Encounter Summary ---
Author Organization [employer] Address [address] [facility] [address] [place] [address] Care Team Providers Care Refinery Technician Name Role Phone Caty Christopher MD Primary Care Provider + Encounter Details Date Type Department Care Team ([facility] st Contact Info) Description 12/17/2024 Results Follow-Up [facility] [address] [place] [id number] Colt Kelly MD [address] [place] [address] Influenza A (ID NOW Rapid Molecular), Influenza [...] Description 03/10/2025 10:00 AM EST Office Visit [facility] MEDICINE [address] [place] [address] Caty Christopher MD [address] [place] [address] 03/22/2025 9:00 AM EST Office Visit [facility] OPTOMETRY [address] [place] [address] Greg, Brenda, OD [address] [place] [address] documented as of this encounter Visit Diagnoses Not on filedocumented in this encounter Additional Health Concerns Assessment Noted Time PHQ-9 Depression Total Score: 3 09/12/19 25 9:34 AM EDT documented as of this encounter Care Teams Refinery Technician Relationship Specialty Start Date End Date Caty Christopher MD [address] [place] [address] PCP - General Internal Medicine 09/30/23 documented as of this encounter
== END 2025-01-29 16:37 | disposition home or self-care (01) ==
LOC: HO.LNP 16:36
PROVIDERS: Visit Provider Family Medicine
DX: R30.0 Dysuria (principal)
CPT/HCPCS: 87086